=== PATIENT | male | born 1965 | race Two or more races ===

== ENCOUNTER 2020-03-21 12:36 | Outpatient (REF) | payer BC, SELFPAY | END 2020-03-21 12:37 | disposition home or self-care (01) | LOC: HO.LAB 12:36 | PROVIDERS: Visit Provider Internal Medicine | DX: Z20.828 Contact with and (suspected) exposure to other viral communicable diseases (principal) | CPT/HCPCS: C9803; U0003 ==

== ENCOUNTER 2021-08-05 07:26 | Outpatient (REF) | payer OTHER, SELFPAY ==
[2021-08-05 07:41] LABS: MANUAL DIFF FLAG NO
[2021-08-05 07:56] LABS: Basophils Percent Auto 0.4 % (0-2); Eosinophils Absolute Auto 0.2 X10*3/uL (0.0-0.4); Hemoglobin 13.3 g/dl (14.0-18.0); Imm Gran Abs Auto 0.01 X10*3/uL (0.00-0.03); Imm Gran Pct Auto 0.1 % (0.0-0.4); Lymphocytes Absolute Auto 2.7 X10*3/uL (1.2-4.9); Lymphocytes Percent Auto 39.9 % (20-40); Mean Corpuscular HGB Conc 32.4 g/dl (31.0-36.0); Mean Corpuscular Volume 89.5 fL (80.0-98.0); Mean Platelet Volume 9.8 fL (9.4-12.4); Monocytes Absolute Auto 0.7 X10*3/uL (0.1-1.2); Monocytes Percent Auto 10.5 % (2-11); Neutrophils Absolute Auto 3.1 x10*3/uL (2.0-8.3); Neutrophils Percent Auto 46.1 % (45-73); Platelet Count 302 X10*3/uL (160-400); Red Blood Count 4.58 X10*6/uL (4.60-5.80); Red Cell Distribution Width 12.8 % (11.0-16.0); White Blood Count 6.8 X10*3/uL (4.8-10.8)
[2021-08-05 08:45] LABS: Alanine Aminotransferase 36 U/L (0-40); Albumin Level 4.3 g/dL (3.5-5.0); Alkaline Phosphatase 58 U/L (39-117); Anion Gap 12 (12-20); Aspartate Amino Transferase 18 U/L (5-37); Bilirubin Total 0.5 mg/dL (0.0-1.0); Blood Urea Nitrogen 19 mg/dL (9-16); Calcium 9.7 mg/dL (8.4-10.2); Carbon Dioxide 27 mmol/L (22-29); Chloride 107 mmol/L (96-108); Cholesterol 230 mg/dL; Estimated Glomerular Filt Rate > 60; Glucose Fasting 120 mg/dL (60-99); HDL Cholesterol 29 mg/dL; LDL Cholesterol Calculated 160 mg/dl; Potassium 4.6 mmol/L (3.3-5.1); Sodium 141 mmol/L (135-145); Total Protein 7.3 g/dL (6.5-8.0); Triglycerides 208 mg/dL
[2021-08-05 08:54] LABS: Estimated Average Glucose 134 mg/dL; Hemoglobin A1c % 6.3 %
[2021-08-05 09:06] LABS: TSH reflex Free T4 1.51 uIU/mL (0.32-4.0)
== END 2021-08-05 07:27 | disposition home or self-care (01) ==
LOC: HO.LAB 07:26
PROVIDERS: PCP Internal Medicine; Visit Provider Nurse Practitioner Acute Care
DX: I10 Essential (primary) hypertension (principal); E78.5 Hyperlipidemia, unspecified; E66.9 Obesity, unspecified
CPT/HCPCS: 36415; 80053; 80061; 83036; 84443; 85025

== ENCOUNTER 2022-07-21 06:59 | Outpatient (REF) | payer OTHER, SELFPAY ==
[2022-07-21 08:49] LABS: Alanine Aminotransferase 60 U/L (0-40); Albumin Level 4.2 g/dL (3.5-5.0); Alkaline Phosphatase 66 U/L (39-117); Anion Gap 14 (12-20); Aspartate Amino Transferase 32 U/L (5-37); Bilirubin Direct < 0.2 mg/dL (0.0-0.5); Bilirubin Total 0.7 mg/dL (0.0-1.0); Blood Urea Nitrogen 16 mg/dL (9-16); Calcium 9.1 mg/dL (8.4-10.2); Carbon Dioxide 27 mmol/L (22-29); Chloride 102 mmol/L (96-108); Cholesterol 238 mg/dL; Estimated Glomerular Filt Rate > 60; Glucose Random 140 mg/dL (60-115); HDL Cholesterol 28 mg/dL; LDL Cholesterol Calculated 169 mg/dl; Potassium 4.9 mmol/L (3.3-5.1); Sodium 138 mmol/L (135-145); Triglycerides 208 mg/dL
[2022-07-21 09:09] LABS: Thyroid Stimulating Hormone 1.03 uIU/mL (0.32-4.0)
== END 2022-07-21 07:00 | disposition home or self-care (01) ==
LOC: HO.LAB 06:59
PROVIDERS: PCP Internal Medicine; Visit Provider Internal Medicine
DX: I10 Essential (primary) hypertension (principal); E78.5 Hyperlipidemia, unspecified
CPT/HCPCS: 36415; 80048; 80061; 80076; 84443

== ENCOUNTER 2023-09-12 14:26 | Outpatient (AMB) | payer OTHER, SELFPAY ==
[2023-09-12 14:28] VITALS: BP 128/62; PULSE 68; O2SAT 97; BMI 38.1
--- NOTE | 2023-09-12 14:28 | MHC.PC.OV ---
Vital Signs 09/12/23 14:28 Height 5 ft 4 in Weight 222 lb BMI 38.1 BP 128/62 Blood Pressure Location Lt brachial Position Sitting Pulse 68 Pulse Source Pulse Oximeter Pulse Oximetry (%) 97 Oxygen Delivery Method Room Air Intake Visit Reasons: Annual Exam Intake Note: Patient is here today for a physical. 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 [facility] Medical History Hyperlipidemia Hypertension Dermatitis associated with moisture Surgical History No pertinent past surgical history Social History Housing: House Alcohol intake: never Patient Tobacco Use Status: Never used Tobacco e-Cigarette/Vaping Use: Never Used Second Hand Smoke Exposure: No service: No Current occupational status: retired Cognitive needs: No Hearing needs: No Vision needs: Yes (GLasses) Questionnaire PHQ-9 Over the last 2 weeks, how often have you been bothered by any of the following problems? 1. Little interest or pleasure in doing things: not at all 2. Feeling down, depressed, or hopeless: not at all 3. Trouble falling or staying asleep, or sleeping too much: not at all 4. Feeling tired or having little energy: not at all 5. Poor appetite or overeating: not at all 6. Feeling bad about yourself - or that you are a failure or have let yourself or your family down: not at all 7. Trouble concentrating on things, such as reading the newspaper or watching television: not at all 8. Moving or speaking so slowly that other people could have noticed. Or the opposite - being so fidgety or restless that you have been moving around a lot more than usual: not at all 9. Thoughts that you would be better off or of hurting yourself in some way: not at all Total score: 0 Depression Screening Interpretation: Negative Depression Screening Done: Yes Source: Developed by Drs. Praveen Allan, Ashly Winslow, Shailesh Martinez and colleagues, with an educational yoli from [employer]. Thrive Questionnaire Date Thrive assessed: 09/12/23 I am a: Patient What is your living situation today?: I have a steady place to live Within the past 12 months, did the food you bought not last and you didn't have the money to get more?: Never true Within the past 12 months, did you worry whether your food would run out before you got money to buy more?: Never true Do you have trouble paying for medicines?: No Do you have trouble getting transportation to medical appointments?: No Do you have trouble paying your heating and electricity bill?: No Do you have trouble taking care of your child, family member or friend?: No Do you have trouble with day-to-day activities such as bathing, preparing meals, shopping, managing finances, etc.?: No Are you currently unemployed and looking for a job?: No Are you interested in more education?: No Please select the resources that you would like help with: None Currently or been in a relationship where the following occur: no concerns reported THRIVE Score: 0 AUDIT C Alcohol Use Questionnaire (AUDIT-C) 1. How often do you have a drink containing alcohol?: Never 3. How often do you have six or more drinks on one occasion?: Never Total Score: 0 ZAHIRA-7 AMB Questionnaire ZAHIRA-7 Date ZAHIRA - 7 assessed: 09/12/23 Feeling nervous, anxious, or on edge: 0 = Not at all Not being able to stop or control worryin = Not at all Worrying too much about different things: 0 = Not at all Trouble relaxin = Not at all Being so restless that it is hard to sit still: 0 = Not at all Becoming easily annoyed or irritable: 0 = Not at all Feeling afraid as if something awful might happen: 0 = Not at all Total ZAHIRA-7 score (0-4 normal; 5-9 mild; 10-14 moderate; 15-21 severe): 0 Source: Developed by Drs. Praveen Allan, Ashly Winslow, Shailesh Martinez and colleagues, with an educational yoli from [employer]. ZAHIRA-7 Assessment Billing ZAHIRA-7 Assessment Tool: ZAHIRA-7 Assessment 74029 Physical exam (Primary Care) Vital Signs: Last Vital Signs Pulse 68 09/12/23 14:28 BP 128/62 09/12/23 14:28 Pulse Ox 97 09/12/23 14:28 Oxygen Delivery Method Room Air 09/12/23 14:28 Care Plan Goal for BP management: BP is in range. Continue current medications. BMI result Body Mass Index 38.1 BMI Assessment/Plan discussion: High (one pound per week weight loss suggested.) BMI High, discussed plan: lifestyle, weight reduction and dietary Tobacco/Smoking Status: Tobacco use Status Tobacco use date assessed 09/12/23 09/12/23 14:30 Patient Tobacco Use Status Never used Tobacco 09/12/23 14:30 e-Cigarette/Vaping Use Never Used 09/12/23 14:30 PHQ-9: PHQ-9 Score PHQ-9: Total score 0 09/12/23 14:59 Depression Screening Interpretation: Negative Thrive Assessment: Date of Thrive Assessment Date Thrive assessed 09/12/23 09/12/23 14:30 Currently or been in a relationship where the following occur: no concerns reported Const General: cooperative and healthy appearing Nutritional Appearance: well nourished Orientation/consciousness: patient oriented x3 Limitations: no limitations HENMT Head: Yes normal to inspection Eyes General: appearance normal, both eyes and all related structures Neck Neck: Yes normal visual inspection Chest Chest palpation & inspection: normal palpation of entire chest wall Resp Effort & Inspection: normal respiratory effort Neuro General: patient oriented x3 Assessment and Plan Assessment & Plan (1) Hyperlipidemia: Code(s): E78.5 - Hyperlipidemia, unspecified Qualifiers: Hyperlipidemia type: pure hypercholesterolemia Qualified Code(s): E78.00 - Pure hypercholesterolemia, unspecified Plan: Blood work ordered. Will call with results. (2) Hypertension: Code(s): I10 - Essential (primary) hypertension Qualifiers: Hypertension type: primary hypertension Qualified Code(s): I10 - Essential (primary) hypertension Plan: BP in range. Continue medications at same dosage. (3) Annual physical exam: Code(s): Z00.00 - Encounter for general adult medical examination without abnormal findings Plan: Uptodate on Screening Colonoscopy. Orders: Orders Basic Metabolic Panel 09/12/23 E78. - Pure hypercholesterolemia, unspecified, I10 - Essential (primary) hypertension Lipid Panel 09/12/23 E7 - Pure hypercholesterolemia, unspecified, I10 - Essential (primary) hypertension Thyroid Stimulating Hormone 09/12/23 E7. - Pure hypercholesterolemia, unspecified, I10 - Essential (primary) hypertension Liver Panel 09/12/23 E7. - Pure hypercholesterolemia, unspecified, I10 - Essential (primary) hypertension UA and rflx microscopic 09/12/23 E78. - Pure hypercholesterolemia, unspecified, I10 - Essential (primary) hypertension Coding Level of Care Code Est Pt Prev Care 40-64y(16824) Diagnoses Pure hypercholesterolemia E78.00 Hyperlipidemia type: pure hypercholesterolemia Primary hypertension I10 Hypertension type: primary hypertension Annual physical exam Z00.00 Additional Codes ZAHIRA-7 Assessment Billing - ZAHIRA-7 Assessment Tool: ZAHIRA-7 Assessment 95990 ([id number])
== END 2023-09-12 15:39 | disposition home or self-care (01) ==
PROVIDERS: Visit Provider Internal Medicine
DX: E78.00 Pure hypercholesterolemia, unspecified (principal); I10 Essential (primary) hypertension; Z00.00 Encounter for general adult medical examination without abnormal findings
CPT/HCPCS: 99396

== ENCOUNTER 2023-11-21 08:22 | Outpatient (REF) | payer BC, SELFPAY ==
[2023-11-21 09:40] LABS: Appearance Urine Clear; Color Urine Yellow; Glucose Urine UA 250 mg/dL (Negative); Leukocyte Esterase Urine Negative (Negative); Nitrite Urine Negative (Negative); UMIC TRIGGER UA YES; Urine Blood Trace (Negative); Urine Ketones Negative (Negative); Urine Protein Negative (Neg-Trace)
[2023-11-21 09:45] LABS: Bacteria Urine None Seen (None Seen); Hyaline Casts Urine 0-2 /LPF (0-2); RBC Urine 0-2 /HPF (0-2); Squamous Epithelial Cell Urine 0-2 /HPF (0-2); WBC Urine 0-5 /HPF (0-5)
[2023-11-21 09:50] LABS: Alanine Aminotransferase 124 U/L (0-40); Albumin Level 4.2 g/dL (3.5-5.0); Alkaline Phosphatase 95 U/L (39-117); Anion Gap 12 (12-20); Aspartate Amino Transferase 58 U/L (5-37); Bilirubin Direct 0.1 mg/dL (0.0-0.5); Bilirubin Total 0.5 mg/dL (0.0-1.0); Blood Urea Nitrogen 13 mg/dL (9-16); Calcium 9.1 mg/dL (8.4-10.2); Carbon Dioxide 28 mmol/L (22-29); Chloride 103 mmol/L (96-108); Cholesterol 230 mg/dL (<200); Estimated Glomerular Filt Rate > 60; Glucose Random 156 mg/dL (60-115); HDL Cholesterol 27 mg/dL (>40); LDL Cholesterol Calculated 162 mg/dL (<100); Sodium 138 mmol/L (135-145); Total Protein 7.4 g/dL (6.5-8.0); Triglycerides 209 mg/dL (<150)
[2023-11-21 10:05] LABS: Thyroid Stimulating Hormone 1.63 uIU/mL (0.32-4.0)
== END 2023-11-21 08:23 | disposition home or self-care (01) ==
LOC: HO.LAB 08:22
PROVIDERS: PCP Internal Medicine; Visit Provider Internal Medicine
DX: E78.00 Pure hypercholesterolemia, unspecified (principal); I10 Essential (primary) hypertension
CPT/HCPCS: 36415; 80048; 80061; 80076; 81001; 84443

== ENCOUNTER 2023-12-05 14:46 | Outpatient (AMB) | payer BC, SELFPAY ==
--- NOTE | 2023-12-05 14:50 | A.OFFPC_ITS ---
Vital Signs 12/05/23 14:51 Height 5 ft 4 in Weight 223 lb BMI 38.3 BP 128/62 Blood Pressure Location Lt brachial Position Sitting Pulse 67 Pulse Source Pulse Oximeter Pulse Oximetry (%) 96 Oxygen Delivery Method Room Air Intake Visit Reasons: Abnormal Lab result/ Need A1C Intake Note: Patient is here to follow up on Abnormal Lab results. Aircraft Engine Dismantler Required: No Finisher Operator: Not Required per policy Accompanied by: Self / Same As Patient Allergies No Known Allergies Allergy (Verified 12/05/23 14:51) Tobacco use date assessed: 12/05/23 Dental Screening Dental Screen Date: 09/12/23 HPI Abnormal Lab result/ Need A1C HPI Details 58-year-old male presents to the office to discuss his blood work. Routine blood work done during his last office visit showed elevated blood sugars. Diabetes was confirmed after doing an A1c which was elevated. Patient gives no symptoms of fatigue, increased thirst or increased urination. [facility] Medical History (Updated 12/06/23 @ 09:03 by Avel Vee MD) Diabetes mellitus Hyperlipidemia Hypertension Dermatitis associated with moisture Surgical History No pertinent past surgical history Social History Housing: House Alcohol intake: never Patient Tobacco Use Status: Never used Tobacco e-Cigarette/Vaping Use: Never Used Second Hand Smoke Exposure: No service: No Current occupational status: retired Cognitive needs: No Hearing needs: No Vision needs: Yes (GLasses) Questionnaire Thrive Questionnaire Date Thrive assessed: 09/12/23 ZAHIRA-7 AMB Questionnaire ZAHIRA-7 Date ZAHIRA - 7 assessed: 09/12/23 Source: Developed by Drs. Praveen Allan, Ashly Winslow, Shailesh Martinez and colleagues, with an educational yoli from [employer]. Physical exam (Primary Care) Vital Signs: Last Vital Signs Pulse 67 12/05/23 14:51 BP 128/62 12/05/23 14:51 Pulse Ox 96 12/05/23 14:51 Oxygen Delivery Method Room Air 12/05/23 14:51 BMI result Body Mass Index 38.3 BMI Assessment/Plan discussion: High (Patient was counseled to lose weight ag gressively. It will help him with his diabetes.) BMI High, discussed plan: lifestyle, weight reduction and dietary Tobacco/Smoking Status: Tobacco use Status Tobacco use date assessed 12/05/23 12/05/23 15:02 Patient Tobacco Use Status Never used Tobacco 12/05/23 15:02 e-Cigarette/Vaping Use Never Used 12/05/23 15:02 Thrive Assessment: Date of Thrive Assessment Date Thrive assessed 09/12/23 12/05/23 15:02 Const General: cooperative and healthy appearing Nutritional Appearance: well nourished Orientation/consciousness: patient oriented x3 Limitations: no limitations HENMT Head: Yes normal to inspection Eyes General: appearance normal, both eyes and all related structures Neck Neck: Yes normal visual inspection Chest Chest palpation & inspection: normal palpation of entire chest wall Resp Effort & Inspection: normal respiratory effort Neuro General: patient oriented x3 Results AMB Hemoglobin A1c AMB Hemoglobin A1c 8.5 % Last Edit by SHILPA Everett on 12/05/23 15:05 Results Reviewed Results Reviewed: Laboratory Last Values Hgb A1c (Clinic) 8.5 % (4.0-6.0) H 12/05/23 14:49 Assessment and Plan Assessment & Plan (1) Diabetes mellitus: Code(s): E11.9 - Type 2 diabetes mellitus without complications Plan: This is a new diagnosis. 20 minutes spent on discussing the pathophysiology of diabetes, the possible complications and the importance of tight sugar control. Patient understands the importance of diet and exercise in controlling the disease. Metformin has been started. Initially, I instructed him to take 1 tablets a day for a week and then increase it to twice a day. Glucometer has been ordered. If patient is unable to use the machine, he was instructed to return here for us to instruct him on how to use the device. Orders: Orders AMB Hemoglobin A1c 12/05/23 Z13.9 - Encounter for screening, unspecified Medications: New metformin 500 mg PO BID 180 tabs 1RF Refilled triamcinolone acetonide 0.1% 2 appl topical BID PRN 30 grams 1RF rash L30.8 - Other specified dermatitis Coding Level of Care Code Est Pt Level 4 (81654) Complex EM visit Add On G2211 Diagnoses Diabetes mellitus E11.9
[2023-12-05 14:51] VITALS: BP 128/62; PULSE 67; O2SAT 96; BMI 38.3
== END 2023-12-05 15:28 | disposition home or self-care (01) ==
PROVIDERS: PCP Internal Medicine; Visit Provider Internal Medicine
DX: E11.9 Type 2 diabetes mellitus without complications (principal)
CPT/HCPCS: 83036; 99214

== ENCOUNTER 2024-01-06 14:56 | Outpatient (AMB) | payer BC, SELFPAY ==
[2024-01-06 15:16] VITALS: BP 128/80; PULSE 63; O2SAT 96; BMI 37.7
--- NOTE | 2024-01-06 15:16 | A.OFFPC_ITS ---
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 Automatic Required: No Accompanied by: Self / Same As Patient Allergies No Known Allergies Allergy (Verified 01/07/24 11:25) Medication List - Last Reconciled 01/07/24 by Avel Vee MD blood-glucose meter (FreeStyle [place]beron Lite kit) Test twice a day [Freestyle freedom lite lancets As directed] [freestyle freedom lite test strips As directed] lisinopril 10 mg PO DAILY metformin 500 mg PO BID triamcinolone acetonide 0.1% 2 appl topical BID PRN Tobacco use date assessed: 01/06/24 Dental Screening Dental Screen Date: 01/06/24 Did you have a dental visit in the last 12 months?: Yes Did you have a dental problem in the last 6 months where you did not have access to dental care?: No Was dental information given to patient?: Patient has dentist HPI 1m f/u HPI Details 58-year-old male presents to the office to discuss his chronic medical conditions. Patient was diagnosed with type 2 diabetes in the last office visit. He was started on metformin twice a day and given a prescription for glucometer. Patient has been checking his blood sugars regularly. Fasting blood sugars continue to be greater than 200. He is feeling better symptom cantrell. Has started exercising and following a healthy diet. [facility] Medical History (Updated 12/06/23 @ 09:03 by Avel Vee MD) Diabetes mellitus Hyperlipidemia Hypertension Dermatitis associated with moisture Surgical History No pertinent past surgical history Social History Housing: House Alcohol intake: never Patient Tobacco Use Status: Never used Tobacco e-Cigarette/Vaping Use: Never Used Second Hand Smoke Exposure: No service: No Current occupational status: retired Cognitive needs: No Hearing needs: No Vision needs: Yes (GLasses) Questionnaire PHQ-9 Over the last 2 weeks, how often have you been bothered by any of the following problems? 1. Little interest or pleasure in doing things: not at all 2. Feeling down, depressed, or hopeless: not at all 3. Trouble falling or staying asleep, or sleeping too much: not at all 4. Feeling tired or having little energy: not at all 5. Poor appetite or overeating: not at all 6. Feeling bad about yourself - or that you are a failure or have let yourself or your family down: not at all 7. Trouble concentrating on things, such as reading the newspaper or watching television: not at all 8. Moving or speaking so slowly that other people could have noticed. Or the opposite - being so fidgety or restless that you have been moving around a lot more than usual: not at all 9. Thoughts that you would be better off or of hurting yourself in some way: not at all Total score: 0 Depression Screening Interpretation: Negative Depression Screening Done: Yes Source: Developed by Drs. Praveen Allan, Ashly Winslow, Shailesh Martinez and colleagues, with an educational yoli from [employer]. Thrive Questionnaire Date Thrive assessed: 01/06/24 I am a: Patient What is your living situation today?: I have a steady place to live Within the past 12 months, did the food you bought not last and you didn't have the money to get more?: Never true Within the past 12 months, did you worry whether your food would run out before you got money to buy more?: Never true Do you have trouble paying for medicines?: No Do you have trouble getting transportation to medical appointments?: No Do you have trouble paying your heating and electricity bill?: No Do you have trouble taking care of your child, family member or friend?: No Do you have trouble with day-to-day activities such as bathing, preparing meals, shopping, managing finances, etc.?: No Are you currently unemployed and looking for a job?: No Are you interested in more education?: No Please select the resources that you would like help with: None Currently or been in a relationship where the following occur: No concerns reported THRIVE Score: 0 AUDIT C Alcohol Use Questionnaire (AUDIT-C) 1. How often do you have a drink containing alcohol?: Never 3. How often do you have six or more drinks on one occasion?: Never Total Score: 0 ZAHIRA-7 AMB Questionnaire ZAHIRA-7 Date ZAHIRA - 7 assessed: 01/06/24 Feeling nervous, anxious, or on edge: 0 = Not at all Not being able to stop or control worryin = Not at all Worrying too much about different things: 0 = Not at all Trouble relaxin = Not at all Being so restless that it is hard to sit still: 0 = Not at all Becoming easily annoyed or irritable: 0 = Not at all Feeling afraid as if something awful might happen: 0 = Not at all Total ZAHIRA-7 score (0-4 normal; 5-9 mild; 10-14 moderate; 15-21 severe): 0 Source: Developed by Drs. Praveen Allan, Ashly Winslow, Shailesh Martinez and colleagues, with an educational yoli from [employer]. Physical exam (Primary Care) Vital Signs: Last Vital Signs Pulse 63 01/06/24 15:16 BP 128/80 01/06/24 15:16 Pulse Ox 96 01/06/24 15:16 Oxygen Delivery Method Room Air 01/06/24 15:16 BMI result Body Mass Index 37.7 Tobacco/Smoking Status: Tobacco use Status Tobacco use date assessed 01/06/24 01/06/24 15:18 Patient Tobacco Use Status Never used Tobacco 01/06/24 15:18 e-Cigarette/Vaping Use Never Used 01/06/24 15:18 PHQ-9: PHQ-9 Score PHQ-9: Total score 0 01/06/24 15:30 Depression Screening Interpretation: Negative Thrive Assessment: Date of Thrive Assessment Date Thrive assessed 01/06/24 01/06/24 15:18 Currently or been in a relationship where the following occur: No concerns reported Const General: cooperative and healthy appearing Nutritional Appearance: well nourished Orientation/consciousness: patient oriented x3 Limitations: no limitations HENMT Head: Yes normal to inspection Eyes General: appearance normal, both eyes and all related structures Neck Neck: Yes normal visual inspection Chest Chest palpation & inspection: normal palpation of entire chest wall Resp Effort & Inspection: normal respiratory effort Neuro General: patient oriented x3 Assessment and Plan Assessment & Plan (1) Diabetes mellitus: Code(s): E11.9 - Type 2 diabetes mellitus without complications Plan: Patient was advised to increase the metformin to 2 tablets twice a day. Continue to check the sugars. Follow-up in 3 months. Coding Level of Care Code Est Pt Level 3 (34105) Complex EM visit Add On G2211 Diagnoses Diabetes mellitus E11.9
== END 2024-01-06 16:03 | disposition home or self-care (01) ==
PROVIDERS: PCP Internal Medicine; Visit Provider Internal Medicine
DX: E11.9 Type 2 diabetes mellitus without complications (principal)
CPT/HCPCS: 99213

== ENCOUNTER 2024-06-11 08:49 | Observation (INO) | payer BC, SELFPAY ==
[2024-06-11] VITALS (10 sets, daily range): BP systolic 125–177; BP diastolic 51–77; PULSE 58–72; RESP 17–20; TEMP 36.1–36.7; O2SAT 95–98; BMI 37.9
--- NOTE | ~2024-06-11 | CT_ITS ---
EXAMINATION: CT ANGIOGRAM NECK CLINICAL INFORMATION: Dizziness. COMPARISON: No prior CT angiograms head neck. Correlated to CT brain dated September 06, 2010. TECHNIQUE: CT brain: Contiguous axial images from the skull base to the vertex using 3 mm collimation without the IV contrast demonstration. Sagittal and coronal reformatted images acquired. CT angiogram of head and neck: Contents axial images from the vertex to the aortic arch using 3 mm collimation following the IV contrast administration. Total of 70 cc Omnipaque 350 strength. Without reported immediate complications. Sagittal and coronal reformatted images acquired. Maximum intensity projections. The degree of stenosis determined by NASCET criteria. This CT examination was performed using dose optimization techniques as appropriate, variously including the following: *Automated exposure control *Adjustment of mA and/or kV according to patient size (this includes techniques or standardized protocols for targeted exams where dose is matched to indication/reason for exam; i.e. extremities or head) *Use of iterative reconstruction technique DLP: 2419 mGy centimeter. FINDINGS: CT brain: No acute intracranial hemorrhage, mass effect, midline shift, hydrocephalus or herniation. Brar-white matter differentiation is normal. Posterior cranial fossa contents demonstrated no acute intracranial hemorrhage or mass effect. Following the IV contrast there is no abnormal enhancement in the intra-axial or the extra-axial compartment of the cranium. Sellar/suprasellar region demonstrated no gross masses or enhancing lesion. Craniocervical junction is intact and normal. Probable old traumatic deformities in the nasal bones. Bony calvarium is intact. Skull base is intact. Tympanic cavities and mastoid cells are aerated. No air-fluid levels in the included paranasal sinuses. CT angiogram neck: The thoracic aortic arch demonstrates normal caliber and enhancement pattern without intimal flap. Mild calcified plaques in the wall. Right CCA: Normal patency. No focal stenosis. No intimal flap. Right ICA: Normal patency. No focal stenosis. No intimal flap. Left CCA: Normal patency. No focal stenosis. No intimal flap. Tortuosity in the distal segment. Left ICA: Calcified plaque. Normal patency. No focal stenosis. No intimal flap. V1/V2 segments: Normal patency. No focal stenosis. No intimal flap. Left vertebral artery is dominant. Both vertebral arteries originating from the subclavian arteries. CT angiogram head: Anterior cerebral circulation: ICAs: Calcified plaques in the cavernous and supraclinoid segments. No focal stenosis. No abrupt cut off. MCA's: Normal patency. No focal stenosis. No abrupt cut off. Bifurcation/trifurcation demonstrated no vascular irregularity. ACAs: Normal patency. No focal stenosis. No abrupt cut off. Anterior communicating artery: Normal patency. Ophthalmic arteries are patent without vascular irregularity. Posterior communicating arteries: Normal patency. Robust on the right side. Posterior cerebral circulation: V3/V4 segments: Normal patency. No intimal flap. No abrupt cut off. Right vertebral artery and seen in the right posterior inferior cerebellar artery. Left posterior inferior cerebellar artery is patent. Basilar artery demonstrates normal patency without focal stenosis or intimal flap. Small caliber of the basilar artery. Superior cerebellar arteries are patent. Anterior inferior cerebellar arteries are patent. ocean export coordinator: Normal patency without abrupt cut off or focal stenosis. Small caliber of the right P1 segment. Main cerebral venous sinuses are patent with a dominant right transverse sinus. CT/CT angio head neck IMPRESSION: Calcified plaque left ICA. No high degree stenosis or dissection. No gross occlusion or embolus in the main cerebral arteries. No gross aneurysm, cerebral arteries. Atherosclerosis disease, cavernous and supraclinoid segments both ICA. Electronically signed by: Ryan Paredes MD 06/11/2024 01:27 PM EST
--- NOTE | ~2024-06-11 | MR_ITS ---
CLINICAL HISTORY: Dizziness. Imbalance MR Brain without gadolinium Comparison: 06/11/2024 Findings: No restricted diffusion. No intracranial mass or hemorrhage. No midline shift. No hydrocephalus. Vascular flow voids are intact. The orbits are normal. The sinuses and mastoid air cells are clear. No focal bone lesion. IMPRESSION: No acute findings. This document has been electronically signed by: Steve Molina MD on 06/11/2024 18:06:09
--- NOTE | 2024-06-11 08:56 | ECG_ITS ---
Test Reason : dizziness Blood Pressure : */* mmHG Vent. Rate : 62 BPM Atrial Rate : 62 BPM P-R Int : 154 ms QRS Dur : 94 ms QT Int : 372 ms P-R-T Axes : 54 37 31 degrees QTcB Int : 377 ms Normal sinus rhythm Normal ECG When compared with ECG of 06-Sep-2010 11:41, No significant changes seen Referred By: Generic ED Physician Electronically Signed By: CAROLYNN DWYER
[2024-06-11 09:08] LABS: MANUAL DIFF FLAG NO
[2024-06-11 09:10] LABS: Basophils Percent Auto 0.6 % (0-2); Eosinophils Absolute Auto 0.2 X10*3/uL (0.0-0.4); Eosinophils Percent Auto 2.6 % (0-4); Hematocrit 42.5 % (42.0-52.0); Hemoglobin 14.6 g/dl (14.0-18.0); Imm Gran Abs Auto 0.01 X10*3/uL (0.00-0.03); Imm Gran Pct Auto 0.2 % (0.0-0.4); Lymphocytes Absolute Auto 2.8 X10*3/uL (1.2-4.9); Lymphocytes Percent Auto 42.7 % (20-40); Mean Corpuscular HGB Conc 34.4 g/dl (31.0-36.0); Mean Corpuscular Hemoglobin 30.4 pg (27.0-33.0); Mean Corpuscular Volume 88.4 fL (80.0-98.0); Mean Platelet Volume 10.1 fL (9.4-12.4); Monocytes Absolute Auto 0.8 X10*3/uL (0.1-1.2); Monocytes Percent Auto 11.6 % (2-11); Neutrophils Absolute Auto 2.8 x10*3/uL (2.0-8.3); Neutrophils Percent Auto 42.3 % (45-73); Platelet Count 296 X10*3/uL (160-400); Red Blood Count 4.81 X10*6/uL (4.60-5.80); Red Cell Distribution Width 12.3 % (11.0-16.0); White Blood Count 6.6 X10*3/uL (4.8-10.8)
[2024-06-11 09:21] LABS: Anion Gap 15 (12-20); Blood Urea Nitrogen 14 mg/dL (9-16); Calcium 9.3 mg/dL (8.4-10.2); Carbon Dioxide 25 mmol/L (22-29); Chloride 106 mmol/L (96-108); Creatinine Clr Calc Pharmacy 116.5; Estimated Glomerular Filt Rate > 60; Glucose Random 113 mg/dL (60-115); Potassium 4.7 mmol/L (3.3-5.1); Sodium 141 mmol/L (135-145)
[2024-06-11 09:31] LABS: Troponin-I High Sensitivity < 2.7 ng/L (<3.5-35.0)
--- NOTE | 2024-06-11 11:03 | ED_ITS ---
HPI - Dizziness General Chief Complaint: Dizziness Stated Complaint: dizzy unstable Time Seen by Provider: 06/11/24 11:01 Source: patient and RN notes reviewed Mode of arrival: ambulatory Limitations: no limitations History of Present Illness ED Provider: Christi Nesbitt PA-C HPI Narrative: This is a 58-year-old male, with a history of diabetes, hyperlipidemia, and hypertension, who presents emergency department for concerns for dizziness. Patient states that over this last week he has had intermittent dizziness, worse in the morning. He states that he also has been experiencing right-sided neck pain and right shoulder pain for the last 2 weeks. 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 He states that this unsteadiness worsens when he is standing, and walking around. He states that he has a sense of needing to sit down as he feels off centered. No recent illness. Denies any vision changes, chest pain, shortness of breath, abdominal pain, nausea, vomiting or diarrhea. No recent travel. No other complaints or concerns at this time. Severity: mild Description: lightheadedness, off-balance and difficulty walking History of similar symptoms: Yes Exacerbating factors: nothing Relieving factors: nothing Associated symptoms: denies other symptoms Related Data Home Medications ?Medication ?Instructions ?Recorded ?Confirmed ascorbic acid (vitamin C) 250 mg 250 mg PO DAILY 06/11/24 06/11/24 tablet (Vitamin C) multivitamin 1 tab PO DAILY 06/11/24 06/11/24 vitamin B complex 1 tab PO DAILY 06/11/24 06/11/24 vitamin E 268 mg (400 unit) capsule 268 mg PO DAILY 06/11/24 06/11/24 Previous Rx's ?Medication ?Instructions ?Recorded Freestyle freedom lite lancets #1 ea 12/09/23 blood-glucose meter (FreeStyle #1 ea 12/09/23 [place] Lite kit) freestyle freedom lite test strips #1 ea 12/09/23 lisinopril 10 mg tablet 10 mg PO DAILY #90 tabs 02/21/24 metformin 500 mg tablet 500 mg PO BID #180 tabs 06/05/24 Allergies Allergy/AdvReac Type Severity Reaction Status Date / Time No Known Allergies Allergy Verified 06/11/24 08:55 Review of Systems 2 Review of Systems: Yes all other systems are reviewed and are negative Constitutional: Constitutional: Reports as per [facility] Past Medical History Medical History (Updated 06/11/24 @ 14:05 by CATRACHO Huizar) Diabetes mellitus Hyperlipidemia Hypertension Dermatitis associated with moisture Surgical History No pertinent past surgical history Social History Social History Housing: House Alcohol intake: never Patient Tobacco Use Status: Never used Tobacco Smoked in Last 30 Days: No e-Cigarette/Vaping Use: Never Used Second Hand Smoke Exposure: No Use of substances other than those prescribed or required for medical reasons: No Advance Directives: No Advance Directives Information Provided: Yes service: No Current occupational status: retired Cognitive needs: No Hearing needs: No Vision needs: Yes (GLasses) Physical Exam 2 Vital Signs: Vital Signs: Last Vital Signs Temp 97.7 F 06/11/24 15:14 Pulse 58 06/11/24 15:14 Resp 17 06/11/24 15:14 BP 148/51 H 06/11/24 15:14 Pulse Ox 98 06/11/24 15:14 O2 Del Method Room Air 06/11/24 15:14 BMI result Body Mass Index 37.9 Const: General: cooperative, comfortable and no acute distress O rientation/consciousness: patient oriented x3 Limitations: no limitations HEENT: Head: Yes normal to inspection, Yes normocephalic and Yes atraumatic Ears: hearing grossly normal bilaterally General nose exam: Normal external nose present Face and sinus: Yes normal facial exam Mouth: Normal oral and palatal mucosa present, oropharynx normal and moist mucous membranes Throat: Yes posterior oropharynx normal Eyes: General: appearance normal, both eyes and all related structures E yelids: Yes eyelids normal Conjunctivae: conjunctivae normal Sclerae: s clerae normal Pupils: Equal, round and reactive pupils present EOM: EOMs intact bilaterally Neck: Neck: Yes normal visual inspection, Yes full ROM and Yes no lymphadenopathy Lymphatic: no lymphadenopathy noted Chest: Chest palpation & inspection: normal inspection of the chest Resp: Effort & Inspection: normal respiratory effort and able to speak in complete sentences Auscultation: clear to auscultation bilaterally, no crackles, no rales, no rhonchi and no wheezes Cardio: Rate: regular rate Rhythm: regular rhythm Heart sounds: S1 normal heart sound present and S2 normal heart sound present GI: Inspection: Yes normal to inspection Skin: General skin exam: no rashes or lesions noted Trauma: no lacerations or abrasions Wounds: no wounds Neuro: General: patient oriented x3 and moves all extremities Cranial nerves: Yes Equal, round and reactive pupils present Cognition (Neuro): n ormal cognition Gait exam (Neuro): Normal gait present Motor exam (neuro): 5/5 motor strength present throughout and Pronator motor function not present Coordination: [id number]-we-vgnf test normal, hdow-du-bfvq test normal and Romberg test positive Extrem: General: Yes normal to inspection Right upper extremity: normal to inspection Left upper extremity: normal to inspection Right lower extremity: normal to inspection Left lower extremity: normal to inspection NIH Stroke Scale Internal: Initial- Upon Arrival Time: 11:21 Level of Consciousness: Alert Level of Consciousness Questions: Answers both questions correctly Level of Consciousness Commands: Performs both tasks correctly Best Gaze: Normal Visual: No visual loss Facial Palsy: Normal Motor Arm (Right): No drift Motor Arm (Left): No drift Motor Leg (Right): No drift Motor Leg (Left): No drift Limb Ataxia: Absent Sensory: Normal Best Language: No aphasia Dysarthia: Normal Extinction and Inattention: No abnormality Score: 0 Course Reevaluation(s) Reevaluation #1: Patient was not orthostatic, 2nd troponin still pending. Will order CT, CTA to r/o any intracranial process. Pt likely needing admission secondary to dizziness of unknown origin. Time: 12:10 Reevaluation #2: CTA returned showing calcified plaque left ICA, no high-grade stenosis or dissection.cavernous and supraclinoid segments both ICA. I reassess patient, had him stand up, he still reports that he was feeling unsteady, does not feel his normal self. Given this finding, patient needing hospital admission for further management, and MRI to r/o cerebellar stroke. He is agreeable for admission. Discussed with hospitalist Time: 14:05 Medications Administered Discontinued Medications Generic Name Dose Route Start Last Admin Trade Name Freq PRN Reason Stop Dose Admin Sodium Chloride 1,000 mls @ 999 mls/hr 06/11/24 12:54 06/11/24 14:01 Ns IV 06/11/24 13:54 999 mls/hr .Q1H1M ONE Administration Iohexol 100 ml 06/11/24 12:41 06/11/24 12:41 Iohexol 350 Mg/Ml 100 Ml Infus..Btl IV 06/11/24 12:42 70 ml ONCE ONE Administration Medical Decision Making Medical Decision Making [facility] Narrative: This is a 58-year-old male, with a history of diabetes, hypertension, hyperlipidemia, who presents emergency department with concerns for dizziness. On arrival, vital signs within normal limits he is speaking in full sentences under no acute distress. Patient has had intermittent dizziness for the last week worsening this morning. He describes this as feeling unsteady. Denies any vision changes. +Romberg on examination, no other focal findings. When asked to stand, patient does report that he is feeling off and asks to sit down. Plan: Labs, EKG, orthostatics Differential Diagnosis Differential Diagnoses: The differential diagnosis associated with the presentation includes Orthostatic hypotension, vertigo, BPPV, electrolyte derangement, ACS, CVA Admission/Observation Consideration of admission/observation: Escalation of care including admission/observation considered Given dizziness, negative orthostatics, patient likely needing MR for further management. Lab Data [facility] Lab Attestation statement: I reviewed the patient's lab results. No leukocytosis, stable H&H, chemistry with no significant electrolyte derangement. Negative troponin x2, viral swabs negative. 06/11/24 09:04 06/11/24 09:04 Labs: Lab Results 06/11/24 06/11/24 06/11/24 Range/Units 09:04 11:45 12:19 WBC 6.6 (4.8-10.8) X10*3/uL RBC 4.81 (4.60-5.80) X10*6/uL Hgb 14.6 (14.0-18.0) g/dl Hct 42.5 (42.0-52.0) % MCV 88.4 (80.0-98.0) fL MCH 30.4 (27.0-33.0) pg MCHC 34.4 (31.0-36.0) g/dl RDW 12.3 (11.0-16.0) % Plt Count 296 (160-400) X10*3/uL MPV 10.1 (9.4-12.4) fL Immature Gran % (Auto) 0.2 (0.0-0.4) % Neut % (Auto) 42.3 L (45-73) % Lymph % (Auto) 42.7 H (20-40) % [place] % (Auto) 11.6 H (2-11) % Eos % (Auto) 2.6 (0-4) % Baso % (Auto) 0.6 (0-2) % Lymph # (Auto) 2.8 (1.2-4.9) X10*3/uL [place] # (Auto) 0.8 (0.1-1.2) X10*3/uL Eos # (Auto) 0.2 (0.0-0.4) X10*3/uL Baso # (Auto) 0.0 (0.0-0.2) X10*3/uL Abs Immat Gran (auto) 0.01 (0.00-0.03) X10*3/uL Absolute Neuts (auto) 2.8 (2.0-8.3) x10*3/uL Absolute Nucleated RBC 0.000 (0.0-0.012) X10*3/uL Nucleated RBC % (auto) 0.0 (0.0-0.2) /100WBC Sodium 141 (135-145) mmol/L Potassium 4.7 (3.3-5.1) mmol/L Chloride 106 (96-108) mmol/L Carbon Dioxide 25 (22-29) mmol/L Anion Gap 15 (12-20) BUN 14 (9-16) mg/dL Creatinine 0.73 (0.5-1.4) mg/dL Estim Creat Clear Calc 116.5 Estimated GFR > 60 Random Glucose 113 (60-115) mg/dL Calcium 9.3 (8.4-10.2) mg/dL Troponin I High Sens < 2.7 < 2.7 (<3.5-35.0) ng/L Influenza Type A (PCR) NEGATIVE (Negative) Influenza Type B (PCR) NEGATIVE (Negative) RSV RNA Qual (PCR) NEGATIVE (Negative) SARS-CoV-2 RNA (RT-PCR) NEGATIVE (Negative) Independent Interpretation I performed an independent interpretation of an: EKG Interpretation: Normal sinus rhythm at a ventricular rate of 62 beats per minute, W[place] interval 54 QT QTC 372/377, no ST elevation or depression. Radiology Impression Discussion of test interpretation with radiology: I have reviewed the radiologist's reading. Radiologist Impression: FINDINGS: CT brain: No acute intracranial hemorrhage, mass effect, midline shift, hydrocephalus or herniation. Brar-white matter differentiation is normal. Posterior cranial fossa contents demonstrated no acute intracranial hemorrhage or mass effect. Following the IV contrast there is no abnormal enhancement in the intra-axial or the extra-axial compartment of the cranium. Sellar/suprasellar region demonstrated no gross masses or enhancing lesion. Craniocervical junction is intact and normal. Probable old traumatic deformities in the nasal bones. Bony calvarium is intact. Skull base is intact. Tympanic cavities and mastoid cells are aerated. No air-fluid levels in the included paranasal sinuses. CT angiogram neck: The thoracic aortic arch demonstrates normal caliber and enhancement pattern without intimal flap. Mild calcified plaques in the wall. Right CCA: Normal patency. No focal stenosis. No intimal flap. Right ICA: Normal patency. No focal stenosis. No intimal flap. Left CCA: Normal patency. No focal stenosis. No intimal flap. Tortuosity in the distal segment. Left ICA: Calcified plaque. Normal patency. No focal stenosis. No intimal flap. V1/V2 segments: Normal patency. No focal stenosis. No intimal flap. Left vertebral artery is dominant. Both vertebral arteries originating from the subclavian arteries. CT angiogram head: Anterior cerebral circulation: ICAs: Calcified plaques in the cavernous and supraclinoid segments. No focal stenosis. No abrupt cut off. MCA's: Normal patency. No focal stenosis. No abrupt cut off. Bifurcation/trifurcation demonstrated no vascular irregularity. ACAs: Normal patency. No focal stenosis. No abrupt cut off. Anterior communicating artery: Normal patency. Ophthalmic arteries are patent without vascular irregularity. Posterior communicating arteries: Normal patency. Robust on the right side. Posterior cerebral circulation: V3/V4 segments: Normal patency. No intimal flap. No abrupt cut off. Right vertebral artery and seen in the right posterior inferior cerebellar artery. Left posterior inferior cerebellar artery is patent. Basilar artery demonstrates normal patency without focal stenosis or intimal flap. Small caliber of the basilar artery. Superior cerebellar arteries are patent. Anterior inferior cerebellar arteries are patent. prosthetics technician: Normal patency without abrupt cut off or focal stenosis. Small caliber of the right P1 segment. Main cerebral venous sinuses are patent with a dominant right transverse sinus. CT/CT angio head neck IMPRESSION: Calcified plaque left ICA. No high degree stenosis or dissection. No gross occlusion or embolus in the main cerebral arteries. No gross aneurysm, cerebral arteries. Atherosclerosis disease, cavernous and supraclinoid segments both ICA. Electronically signed by: Ryan Paredes MD 06/11/2024 01:[address] [facility] Dictated By: Ryan Rogel MD Chronic Conditions Patient?s care impacted by: Diabetes and Hypertension Discharge Plan Discharge Clinical Impression: Dizziness Patient Disposition: Admitted As Inpatient Print Language: Wolof
[2024-06-11 12:28] LABS: Troponin-I High Sensitivity < 2.7 ng/L (<3.5-35.0)
[2024-06-11] MEDS: iohexoL 350 MG/ML 100 ML INFUS..BTL IV (12:41)
[2024-06-11 13:19] LABS: Influenza A PCR NEGATIVE (Negative); Influenza B PCR NEGATIVE (Negative); Resp Syncy Virus RNA Qual PCR NEGATIVE (Negative); SARS COV2 PCR INHOUSE NEGATIVE (Negative)
[2024-06-11] MEDS: 0.9 % Sodium Chloride 1,000 ML 999 ML IV (14:01)
--- NOTE | 2024-06-11 14:55 | PHA.MEDREC ---
Addendum entered by Anamaria Katz RPh 06/11/24 15:33: Reviewed by [facility] Original Note: Pharmacy Consult ? Medication Reconciliation Pharmacy has completed the medication reconciliation. Spoke with patient and he confirmed his medications. He confirmed he took his medications this morning.
--- OUTSIDE RECORDS SUMMARY | 2024-06-11 15:01 | XMS_ITS | Clinical Summary ---
Author Organization [facility] Address [address] [place] [address] Care Team Providers Care Consumer Science Teacher Name Role Phone Unavailable Primary Care Provider Unavailabl e Source Comments PLEASE NOTE, if this patient is a minor, it may be UNLAWFUL to discuss sensitive information that is contained in these records (such as FAMILY PLANNING, MENTAL HEALTH or SUBSTANCE ABUSE) with the minor patient's parent or other person without the patient's specific authorization.[facility] Immunizations Name Administration Dates Next Due Moderna COVID-19 Vaccine, re d cap blue label, 12+ Primary Series 08/23/2020,07/26/2020 Social History Tobacco Use Types Packs/Day Years Used Date Smoking Tobacco: Never Assessed Social Connections Answer Date Recorded Connectedness 0 01/23/2024 Financial Resource Strain Answer Date R ecorded Financial Resource Strain 0 2023 Stress Answer Date Recorded Stress 0 09/15/2023 Physical Activity Answer Date Recorded Physical Activity 0 09/15/2023 Food Insecurity Answer Date Recorded Food 0 02/06/2024 Transportation Needs Answer Date Record ed Transportation 0 09/15/2023 Housing Stability Answer Date Recorded Housing 0 09/15/2023 Safety and Environment Answer Date Dm rded Safety 0 09/15/2023 Utilities Answer Date Recorded Utilities 0 09/15/2023 Employment Answer Date Recorded Stress 0 01/23/2024 Sex and Gender Information Value Date Recorded Sex Assigned at Not on file Legal Sex Male 5:45 AM PST Gender Identity Not on file Sexual Orientation Not on file Plan of Treatment Health Maintenance Due Date Last Done Comments Diabetes Screening 1964 Hepatitis C Screening 1964 Lipid Screening 1964 Tobacco Screening 1964 HIV Screening 09/28/1979 Annual Preventive Care Visit 1982 Hypertension Screening (#1) 1982 Imm-DTaP/Tdap/Td (1 - Tdap) 09/28/1983 Imm-Hepatitis B (1 of 3 - 19 + 3-dose series) 09/28/1983 CT Colonography 2009 Colonoscopy 2009 Colorectal Cancer Screening 2009 FIT/gFOBT 2009 Fecal DNA 2009 Flexible Sigmoidoscopy 2009 Imm-Zoster, Recombinant (1 of 2) 2014 Alcohol and Drug Screen 05/13/2023 Depression Annual Screen 05/13/2023 [id number] ( season) 2024 021, 07/26/2020 Imm-Influenza (#1) 2024 04/05/2020, 03/29/2019 Insurance [facility] Member Subscriber Plan / Payer (Ef fective 2020-Present) Name:Monteiro, Jose Relation to Subscriber:Self Name:MonteiroRamesh fields Payer ID:[id number] Type:Indemnity Address: [id number] [place] [address]
--- NOTE | 2024-06-11 15:45 | PM.IMHP ---
History of Present Illness Date of Service: 06/11/24 Chief Complaint: dizziness The patient is a 58-year-old male with a past medical history of diabetes, hypertension, fatty liver who presents to the emergency room with worsening dizziness which began on the morning of admission. The patient reports, that over the last several weeks, he has had several episodes of similar symptoms, although not as severe. He says he typically sits down and rests with the symptoms subsiding. During these episodes there are no other neurological deficits reported by him. No tinnitus, no recent URI symptoms, no hearing loss. On arrival to the emergency room, the patient underwent testing which included a CT of the head and neck which showed no large vessel occlusion. ICA showed calcified plaque but no focal stenosis. His symptoms have since subsided. [facility] Medical History (Updated 06/11/24 @ 14:05 by CATRACHO Huizar) Diabetes mellitus Hyperlipidemia Hypertension Dermatitis associated with moisture Surgical History No pertinent past surgical history Social History Housing: House Alcohol intake: never Patient Tobacco Use Status: Never used Tobacco Smoked in Last 30 Days: No e-Cigarette/Vaping Use: Never Used Second Hand Smoke Exposure: No Use of substances other than those prescribed or required for medical reasons: No Advance Directives: No Advance Directives Information Provided: Yes service: No Current occupational status: retired Cognitive needs: No Hearing needs: No Vision needs: Yes (GLasses) Meds Allergies Allergy/AdvReac Type Severity Reaction Status Date / Time No Known Allergies Allergy Verified 06/11/24 08:55 Active Medications: Current Medications Acetaminophen (Acetaminophen 325 Mg Tablet) 650 mg PO Q6H PRN PRN Reason: Pain, Mild 1-3,fever,headache Ascorbic Acid (Ascorbic Acid 250 Mg Tablet) 250 mg PO DAILY NIR Calcium Carbonate (Calcium Carbonate 750 Mg Tab.Chew) 750 mg PO Q4H PRN PRN Reason: Heartburn Enoxaparin Sodium (Enoxaparin Sodium 40 Mg/0.4 Ml Syringe) 40 mg SUBCUT Q24H NIR Lisinopril (Lisinopril 10 Mg Tablet) 10 mg PO DAILY NIR; Protocol Magnesium Hydroxide (Milk Of Magnesia 30 Ml Oral.Susp) 30 ml PO DAILY PRN PRN Reason: Constipation Melatonin (Melatonin 3 Mg Tablet) 6 mg PO BEDTIME PRN PRN Reason: Insomnia Multivitamins/Vitamin C (Multivitamin Tablet) 1 tab PO DAILY NIR Multivitamins/Vitamin C (Multivitamin Tablet) 1 tab PO DAILY NIR Sodium Chloride (0.9 % Sodium Chloride Flush 3 Ml Syringe) 3 ml IVFLUSH QSHIFT NIR Home Medications ?Medication ?Instructions ?Recorded ?Confirmed ?Last Taken ?Type ascorbic acid (vitamin C) 250 mg 250 mg PO DAILY 06/11/24 06/11/24 06/11/24 History tablet (Vitamin C) multivitamin 1 tab PO DAILY 06/11/24 06/11/24 06/11/24 History vitamin B complex 1 tab PO DAILY 06/11/24 06/11/24 06/11/24 History vitamin E 268 mg (400 unit) capsule 268 mg PO DAILY 06/11/24 06/11/24 06/11/24 History Physical Exam Vital Signs and Narrative: Vital Signs: Last Vital Signs Temp 97.7 F 06/11/24 15:14 Pulse 58 06/11/24 15:14 Resp 17 06/11/24 15:14 BP 148/51 H 06/11/24 15:14 Pulse Ox 98 06/11/24 15:14 O2 Del Method Room Air 06/11/24 15:14 BMI result Body Mass Index 37.9 Const: Other: Constitutional - Awake and Alert, No apparent distress Eyes - PERRLA, EOMI Cardiovascular - S1S2, RRR, No edema Respiratory - Normal lung expansion, Normal respiratory effort, No respiratory distress, CTA bilaterally Gastrointestinal - NT / ND; +BS; No rebound or guarding - No CVA tenderness Extremities - no calf tenderness bilaterally, no swelling Musculoskeletal - Normal inspection, normal ROM Skin - Warm/Dry Neurological - Alert & oriented x3, No focal deficit; no nystagmus; rpia-ef-bxvj wnl; finger to nose wnl Psychological - Appropriate affect Results Labs 06/11/24 09:04 06/11/24 09:04 Labs: Laboratory Results - last 24 hr 06/11/24 06/11/24 06/11/24 09:04 11:45 12:19 MCV 88.4 MCH 30.4 MCHC 34.4 RDW 12.3 Plt Count 296 MPV 10.1 Immature Gran % (Auto) 0.2 Neut % (Auto) 42.3 L Lymph % (Auto) 42.7 H [place] % (Auto) 11.6 H Eos % (Auto) 2.6 Baso % (Auto) 0.6 Lymph # (Auto) 2.8 [place] # (Auto) 0.8 Eos # (Auto) 0.2 Baso # (Auto) 0.0 Abs Immat Gran (auto) 0.01 Absolute Neuts (auto) 2.8 Absolute Nucleated RBC 0.000 Nucleated RBC % (auto) 0.0 Anion Gap 15 Estim Creat Clear Calc 116.5 Estimated GFR > 60 Random Glucose 113 Calcium 9.3 Troponin I High Sens < 2.7 < 2.7 Influenza Type A (PCR) NEGATIVE Influenza Type B (PCR) NEGATIVE RSV RNA Qual (PCR) NEGATIVE SARS-CoV-2 RNA (RT-PCR) NEGATIVE Imaging Radiologist's Impressions: Impressions Head/Neck CTA 06/11/24 12:28 IMPRESSION: Calcified plaque left ICA. No high degree stenosis or dissection. No gross occlusion or embolus in the main cerebral arteries. No gross aneurysm, cerebral arteries. Atherosclerosis disease, cavernous and supraclinoid segments both ICA. Electronically signed by: Ryan Paredes MD 06/11/2024 01:27 PM [facility] [place] Assessment and Plan (1) Dizziness: Status: Acute Plan 58 yo M with risk factors for CVA presenting with acute worsened dizziness being placed under obs for further monitoring and evaluation. 1. Dizziness -- r/o cerebellar cva clinically does not appear to be acute CVA will check MRI, monitor on tele, neurology consult check lipids 2. DM hold metformin given contrast use on CTA using sliding scale and POC if needed 3. HTN continue baseline meds Full Code DVT pptx - lovenox Quality Stroke Does the patient have a stroke diagnosis?: No VTE Prior VTE?: No VTE Risk Level:: Medical - moderate - high VTE Device Contraindication: N/A - Device Ordered VTE Drug Contraindication: N/A - Med Ordered
--- NOTE | 2024-06-11 15:47 | PC.NURSE ---
MRI screening foem completed with pt; pt to have scan at 1700
[2024-06-11 16:02] LABS: Cholesterol 233 mg/dL (<200); HDL Cholesterol 34 mg/dL (>40); LDL Cholesterol Calculated 153 mg/dL (<100); Triglycerides 233 mg/dL (<150)
[2024-06-11 16:03] LABS: Glucose, Whole Blood 91 mg/dL (60-115)
[2024-06-11] MEDS: 0.9 % Sodium Chloride Flush 3 ML SYRINGE IVFLUSH (17:48)
[2024-06-11 21:55] LABS: Glucose, Whole Blood 154 mg/dL (60-115)
[2024-06-12 03:15] VITALS: BP 139/64; PULSE 56; RESP 20; TEMP 36.6; O2SAT 96
[2024-06-12 07:07] LABS: Glucose, Whole Blood 137 mg/dL (60-115)
[2024-06-12 07:14] VITALS: BP 125/58; PULSE 66; RESP 18; TEMP 36.9; O2SAT 95
[2024-06-12] MEDS: lisinopriL 10 MG TABLET PO (09:36)
[2024-06-12] MEDS: 0.9 % Sodium Chloride Flush 3 ML SYRINGE IVFLUSH (09:36)
[2024-06-12] MEDS: Multivitamin TABLET 1 TAB PO (09:36)
[2024-06-12] MEDS: Ascorbic Acid 250 MG TABLET PO (09:36)
[2024-06-12] MEDS: Flu Vacc TS2024-25(6mos up)/PF 0.5 ML SYRINGE IM (09:37)
[2024-06-12 10:53] LABS: Glucose, Whole Blood 125 mg/dL (60-115)
[2024-06-12 10:57] VITALS: BP 128/60; PULSE 64; RESP 18; TEMP 37; O2SAT 96
--- NOTE | 2024-06-12 11:12 | PM.NEUROCN ---
History of Present Illness Data of Consult Service Date: 06/12/24 Primary Care Provider: Avel Vee MD [facility] Reason for consult: Dizziness 58-year-old male with a past medical history of diabetes, hypertension, fatty liver who presents to the emergency room with worsening dizziness which began on the morning of admission. 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 Dizzy was described as a sense of unsteadiness and not spinning. He also was suffering from problem hearing from left ear for last 3 days. He denied any ear pain. He was having little bit of runny nose. There was no alteration of consciousness or visual symptom or focal arm or leg weakness. Speech was normal. Review of Systems Review of Systems: He was having right-sided head pressure for few days. ON LICENSE OF [facility] Past Medical History Medical History (Updated 06/11/24 @ 14:05 by CATRACHO Huizar) Diabetes mellitus Hyperlipidemia Hypertension Dermatitis associated with moisture Surgical History Surgical History No pertinent past surgical history Social History Social History Household Members: Significant Other Housing: House Alcohol intake: never Patient Tobacco Use Status: Never used Tobacco e-Cigarette/Vaping Use: Never Used Second Hand Smoke Exposure: No service: No Current occupational status: retired Cognitive needs: No Hearing needs: No Vision needs: Yes ([place]asses) Meds Allergies Allergy/AdvReac Type Severity Reaction Status Date / Time No Known Allergies Allergy Verified 06/11/24 08:55 Active Medications: Current Medications Acetaminophen (Acetaminophen 325 Mg Tablet) 650 mg PO Q6H PRN PRN Reason: Pain, Mild 1-3,fever,headache Ascorbic Acid (Ascorbic Acid 250 Mg Tablet) 250 mg PO DAILY [facility] Last Admin: 06/12/24 09:36 Dose: 250 mg Calcium Carbonate (Calcium Carbonate 750 Mg Tab.Chew) 750 mg PO Q4H PRN PRN Reason: Heartburn Enoxaparin Sodium (Enoxaparin Sodium 40 Mg/0.4 Ml Syringe) 40 mg SUBCUT Q24H [facility] Last Admin: 06/11/24 17:48 Dose: Not Given Lisinopril (Lisinopril 10 Mg Tablet) 10 mg PO DAILY [facility]; Protocol Last Admin: 06/12/24 09:36 Dose: 10 mg Magnesium Hydroxide (Milk Of Magnesia 30 Ml Oral.Susp) 30 ml PO DAILY PRN PRN Reason: Constipation Melatonin (Melatonin 3 Mg Tablet) 6 mg PO BEDTIME PRN PRN Reason: Insomnia Multivitamins/Vitamin C (Multivitamin Tablet) 1 tab PO DAILY [facility] Last Admin: 06/12/24 09:36 Dose: 1 tab Sodium Chloride (0.9 % Sodium Chloride Flush 3 Ml Syringe) 3 ml IVFLUSH QSHIFT [facility] Last Admin: 06/12/24 09:36 Dose: 3 ml Home Medications ?Medication ?Instructions ?Recorded ?Confirmed ?Last Taken ?Type ascorbic acid (vitamin C) 250 mg 250 mg PO DAILY 06/11/24 06/11/24 06/11/24 History tablet (Vitamin C) multivitamin 1 tab PO DAILY 06/11/24 06/11/24 06/11/24 History vitamin B complex 1 tab PO DAILY 06/11/24 06/11/24 06/11/24 History vitamin E 268 mg (400 unit) capsule 268 mg PO DAILY 06/11/24 06/11/24 06/11/24 History Physical Exam Vital Signs: Vital Signs: Last Vital Signs Temp 98.6 F 06/12/24 10:57 Pulse 64 06/12/24 10:57 Resp 18 06/12/24 10:57 BP 128/60 06/12/24 10:57 Pulse Ox 96 06/12/24 10:57 O2 Del Method Room Air 06/12/24 10:57 BMI result Body Mass Index 37.9 Neuro: Other: He is alert and awake with normal spontaneity of speech fluency comprehension and affect. Face is symmetrical. Visual whittaker are full. There is no pronator drift. Htxagh-cl-vtew testing is normal. Speech is normal. Deep tendon reflexes are trace to absent. Results Labs 06/11/24 09:04 06/11/24 09:04 Labs: MRI of brain did not reveal any acute abnormality. Mild chronic microvascular ischemic changes were noted. CTA did not reveal any vascular lesion. EKG revealed sinus rhythm. Assessment and Plan (1) Dizziness: Status: Acute Probably peripheral vestibular neuritis from common viral infection. Symptomatic treatment with meclizine is recommended. Procedures Date of Service Date of Service: 06/12/24
--- NOTE | 2024-06-12 11:18 | PM.DS ---
DS: Providers Provider Date of Service: 06/12/24 Date of admission: 06/11/24 15:41 Date of discharge: 06/12/24 Primary care physician: Avel Vee MD Consults: 06/11/24 15:43 Consult to Neurology Routine Consulting Provider: [facility] Reason for consultation: dizziness, to eval for cva DS: Diagnosis Discharge Diagnosis (1) Dizziness: Status: Acute DS: Summary Hospital Course Hospital Course: HPI From admission H&P: The patient is a 58-year-old male with a past medical history of diabetes, hypertension, fatty liver who presents to the emergency room with worsening dizziness which began on the morning of admission. The patient reports, that over the last several weeks, he has had several episodes of similar symptoms, although not as severe. He says he typically sits down and rests with the symptoms subsiding. During these episodes there are no other neurological deficits reported by him. No tinnitus, no recent URI symptoms, no hearing loss. On arrival to the emergency room, the patient underwent testing which included a CT of the head and neck which showed no large vessel occlusion. ICA showed calcified plaque but no focal stenosis. His symptoms have since subsided. Hospital Course: Patient was admitted under observation for concern over possible TIA/cerebellar infarct. He underwent an MRI which showed no acute findings. He was evaluated by Neurology who felt likely symptoms due to peripheral vestibular neuritis from viral infection. Symptomatic meclizine was recommended which the discharged. Patient seen and examined the day of discharge, he was stable for discharge. Final discharge diagnoses 1. Probable peripheral vestibular neuritis 2. Diabetes mellitus 3. Hypertension 4. Hyperlipidemia Time Attestation Discharge Coordination Time (in mins): less than 30 Quality: Safe Use of Opioids Does Pt have an Active Cancer Diagnosis on the Problem List?: No Quality: Stroke Does the patient have a stroke diagnosis?: No Physical Exam Vital Signs: Vital Signs: Last Vital Signs Temp 98.6 F 06/12/24 10:57 Pulse 64 06/12/24 10:57 Resp 18 06/12/24 10:57 BP 128/60 06/12/24 10:57 Pulse Ox 96 06/12/24 10:57 O2 Del Method Room Air 06/12/24 10:57 BMI result Body Mass Index 37.9 Const: Other: General - no acute distress, appears comfortable Cardiovascular - regular rate and rhythm, S1-S2 Lungs - normal respiratory effort, clear to auscultation bilaterally, no wheezing Abdomen - soft, nontender, no rebound or guarding Extremities - no edema bilaterally Neuro - awake and alert, no focal deficits DS: Data Data Completed and Pending Labs on day of discharge: Laboratory Results - last 24 hr 06/11/24 06/11/24 06/11/24 09:04 11:45 12:19 POC Glucose Troponin I High Sens < 2.7 Triglycerides 233 H Cholesterol 233 H LDL Cholesterol, Calc 153 H HDL Cholesterol 34 L Influenza Type A (PCR) NEGATIVE Influenza Type B (PCR) NEGATIVE RSV RNA Qual (PCR) NEGATIVE SARS-CoV-2 RNA (RT-PCR) NEGATIVE 06/11/24 06/11/24 06/12/24 15:58 21:48 07:00 POC Glucose 91 154 H 137 H Troponin I High Sens Triglycerides Cholesterol LDL Cholesterol, Calc HDL Cholesterol Influenza Type A (PCR) Influenza Type B (PCR) RSV RNA Qual (PCR) SARS-CoV-2 RNA (RT-PCR) 06/12/24 10:48 POC Glucose 125 H Troponin I High Sens Triglycerides Cholesterol LDL Cholesterol, Calc HDL Cholesterol Influenza Type A (PCR) Influenza Type B (PCR) RSV RNA Qual (PCR) SARS-CoV-2 RNA (RT-PCR) Discharge Plan Discharge Patient Disposition: Home Health Service Discharge Diagnosis: Peripheral vestibular neuritis Referrals: Avel Vee MD [Primary Care Provider] - 1 Week Discharge Medications: New meclizine 25 mg tablet 25 mg PO BID PRN (Reason: dizziness) Qty: 30 0RF Continued (DME) blood-glucose meter [FreeStyle [place] Lite] Kit See Rx Instructions .Route Qty: 1 0RF Rx Instructions: Test twice a day (DME) freestyle freedom lite test strips See Rx Instructions .Route .MEDSUPPLY Qty: 1 0RF Rx Instructions: As directed (DME) Freestyle freedom lite lancets See Rx Instructions .Route .MEDSUPPLY Qty: 1 0RF Rx Instructions: As directed lisinopril 10 mg tablet 10 mg PO DAILY Qty: 90 1RF multivitamin Tablet 1 tab PO DAILY ascorbic acid (vitamin C) [Vitamin C] 250 mg Tablet 250 mg PO DAILY vitamin B complex Tablet 1 tab PO DAILY vitamin E 268 mg (400 unit) Capsule 268 mg PO DAILY Held metformin 500 mg tablet 500 mg PO BID Qty: 180 1RF Hold Instructions: Resume on 06/13/24. Start 06/13 Discharge Orders: Discharge Order (Routine); Ordered 06/12/24 Ordered By: Tej Dudley Diet: Advance to usual diet Activity on Discharge: As tolerated Stand Alone Forms: Patient Portal Discharge page Print Language: Arabic Care Plan Goals: To stay healthy and out of the hospital. Health Concerns: see d/c summary Plan of Treatment: Take meclizine as needed for dizziness Do not take your metformin today (you received IV contrast for your CT scan). You can start it 06/13/24. Assessment: see d/c summary
--- NOTE | 2024-06-12 11:46 | MHC.CM.PN ---
Addendum entered by Precious Cesar 06/12/24 13:12: PT DISCHARGED HOME TODAY WITH NO SERVICES VIA PRIVATE TRANSPORT Original Note: TITLE I COORDINATOR MET WITH PT AT BEDSIDE PT LIVES AT HOME WITH PT DOES NOT USE SERVICES PT USES CPAP PT FILLED OUT HCP NAMING , LUCIE, , PROXY PT'S PCP LISTED IS LAURA DAVIS PT'S INS IS LEILA HUFF PT'S DCP- HOME NO SERVICES VIA PRIVATE TRANSPORT. PT GIVEN OBS NOTICE
== END 2024-06-12 12:50 | disposition home or self-care (01) ==
LOC: HO.ED 15:35 → HO.EDOVER 15:49 → HO.IMC 17:48
PROVIDERS: Physician Assistant Medical; Admitting Provider Family Medicine; Emergency Provider Emergency Medicine; PCP Internal Medicine; Visit Provider Family Medicine
DX: H81.20 Vestibular neuronitis, unspecified ear (principal); M54.2 Cervicalgia; E11.9 Type 2 diabetes mellitus without complications; I10 Essential (primary) hypertension; E78.5 Hyperlipidemia, unspecified; M25.511 Pain in right shoulder; K76.0 Fatty (change of) liver, not elsewhere classified; Z23 Encounter for immunization; Z79.899 Other long term (current) drug therapy; Z03.818 Encounter for observation for suspected exposure to other biological agents ruled out
CPT/HCPCS: 0241U; 36415; 70496; 70498; 70551; 80048; 80061; 82947; 84484; 85025; 90471; 90656; 93005; 94660; 96360; 96361; 99222; 99285; Q9967

== ENCOUNTER → 2024-06-11 08:56 | Outpatient (BNV) | payer BC, SELFPAY | PROVIDERS: Admitting Provider Family Medicine; Emergency Provider Emergency Medicine; PCP Internal Medicine; Visit Provider Internal Medicine | DX: R42 Dizziness and giddiness (principal) | CPT/HCPCS: 93010 ==

== ENCOUNTER → 2024-06-11 12:09 | Outpatient (BNV) | payer BC, SELFPAY | PROVIDERS: Emergency Provider Emergency Medicine; PCP Internal Medicine; Visit Provider Radiology Diagnostic Radiology | DX: I65.22 Occlusion and stenosis of left carotid artery (principal); I70.90 Unspecified atherosclerosis; R42 Dizziness and giddiness; R26.9 Unspecified abnormalities of gait and mobility | CPT/HCPCS: 70496; 70498; 70551 ==

== ENCOUNTER → 2024-06-11 15:41 | Outpatient (BNV) | payer BC, SELFPAY | PROVIDERS: Admitting Provider Family Medicine; Emergency Provider Emergency Medicine; PCP Internal Medicine; Visit Provider Family Medicine | DX: R42 Dizziness and giddiness (principal) | CPT/HCPCS: 99222; 99238 ==

== ENCOUNTER → 2024-06-11 15:41 | Outpatient (BNV) | payer BC, SELFPAY | PROVIDERS: Admitting Provider Family Medicine; Emergency Provider Emergency Medicine; PCP Internal Medicine; Visit Provider Psychiatry & Neurology Neurology | DX: R42 Dizziness and giddiness (principal) | CPT/HCPCS: 99222 ==

== ENCOUNTER 2024-06-16 08:53 | Outpatient (AMB) | payer BC, SELFPAY ==
--- NOTE | 2024-06-16 08:55 | A.OFFPC_ITS ---
Vital Signs 06/16/24 08:58 Height 5 ft 4 in Weight 221 lb 6 oz BMI 38.0 BP 124/62 Blood Pressure Location Lt brachial Position Sitting Pulse 69 Pulse Source Pulse Oximeter Temp 97.1 F Temp Source Temporal Artery Scan Pulse Oximetry (%) 95 Oxygen Delivery Method Room Air Intake Visit Reasons: [facility] dizziness 06/12 Athletic Director Required: No Accompanied by: Self / Same As Patient Allergies No Known Allergies Allergy (Verified 06/16/24 09:19) Medication List - Last Reconciled 06/16/24 by NUHA Ochoa ascorbic acid (vitamin C) (Vitamin C) 250 mg PO DAILY blood-glucose meter (FreeStyle Tower Lite kit) Test twice a day [Freestyle freedom lite lancets As directed] [freestyle freedom lite test strips As directed] lisinopril 10 mg PO DAILY meclizine 25 mg PO BID PRN metformin 500 mg PO BID multivitamin 1 tab PO DAILY vitamin B complex 1 tab PO DAILY vitamin E 268 mg PO DAILY Tobacco use date assessed: 06/16/24 Dental Screening Dental Screen Date: 06/16/24 Did you have a dental visit in the last 12 months?: Yes Did you have a dental problem in the last 6 months where you did not have access to dental care?: No Was dental information given to patient?: Patient has dentist HPI [facility] dizziness 06/12 HPI Details The patient is a 58-year-old male with past medical history of diabetes, hypertension, fatty liver and obesity Patient is presenting for a post hospital visit. The patient was admitted from 06/11/24 to 06/12/24 The patient went to the emergency room with worsening dizziness that began the morning of admission Patient reports multiple prior episodes similarly but less severe The patient underwent a CT of the head and neck which showed no large vessel occlusion ICA showed calcified plaque but no focal stenosis His symptoms subsided The patient was admitted on the observation for concern for possible TIA/cerebral infarct He underwent an MRI which showed no acute findings He was evaluated by neuro who felt like his symptoms were due to peripheral vestibular neuritis from viral infection Patient was discharged with p.r.n. meclizine In office, the patient reports having ringing in his ears, nasal congestion in the mornings and frontal pressure Reports that the hospital told him that they could not she has eardrums due to walks but did nothing about it reports that he bought debrox of [facility] and has been using it Reports that he is still have intermittent dizziness On exam: Nasal passage red and swollen with boggy turbinates, throat normal- appearing left ear with small amount of dried up waxes, TM with effusion right with scanty of brownish dried up waxes no effusion noted loratadine and flonase ordered report right shoulder pain: appears muscular, positive range of motion with reports of stiffness in his shoulder extending up into his neck, no swelling, negative empty can test, negative cross arm shoulder test: Encouraged patient to use tiger balm or aspercreme topical left hand unable to close on it's own. He has to use his right and to close the left. left fingers get stuck and he has to open it with his right. reports that it bothers him, finger clicks with range of motion. pain at the MCP joints of the fingers of the left hand. referral to hand specialist. TCM TCM Information Date of Discharge 06/15/24 Discharged From [facility] Interactive Contact Date (Reference documentation from this date) 06/15/24 [facility] Medical History (Updated 06/20/24 @ 00:02 by Ángel Ortiz) Dizziness Diabetes mellitus Hyperlipidemia Hypertension Dermatitis associated with moisture Surgical History No pertinent past surgical history Social History Household Members: Significant Other Housing: House Alcohol intake: never Patient Tobacco Use Status: Never used Tobacco e-Cigarette/Vaping Use: Never Used Second Hand Smoke Exposure: No service: No Current occupational status: retired Cognitive needs: No Hearing needs: No Vision needs: Yes (GLasses) Questionnaire PHQ-9 Over the last 2 weeks, how often have you been bothered by any of the following problems? 1. Little interest or pleasure in doing things: not at all 2. Feeling down, depressed, or hopeless: not at all 3. Trouble falling or staying asleep, or sleeping too much: not at all 4. Feeling tired or having little energy: not at all 5. Poor appetite or overeating: not at all 6. Feeling bad about yourself - or that you are a failure or have let yourself or your family down: not at all 7. Trouble concentrating on things, such as reading the newspaper or watching television: not at all 8. Moving or speaking so slowly that other people could have noticed. Or the opposite - being so fidgety or restless that you have been moving around a lot more than usual: not at all 9. Thoughts that you would be better off or of hurting yourself in some way: not at all Total score: 0 Depression Screening Interpretation: Negative Depression Screening Done: Yes 75862 - PHQ-9 Billing: Yes Source: Developed by Drs. Praveen Allan, Ashly Winslow, Shailesh Martinez and colleagues, with an educational yoli from [employer]. Thrive Questionnaire Date Thrive assessed: 06/16/24 I am a: Patient What is your living situation today?: I have a steady place to live Within the past 12 months, did the food you bought not last and you didn't have the money to get more?: Never true Within the past 12 months, did you worry whether your food would run out before you got money to buy more?: Never true Do you have trouble paying for medicines?: No Do you have trouble getting transportation to medical appointments?: No Do you have trouble paying your heating and electricity bill?: No Do you have trouble taking care of your child, family member or friend?: No Do you have trouble with day-to-day activities such as bathing, preparing meals, shopping, managing finances, etc.?: No Are you currently unemployed and looking for a job?: No Are you interested in more education?: No Please select the resources that you would like help with: None Currently or been in a relationship where the following occur: No concerns reported THRIVE Score: 0 AUDIT C Alcohol Use Questionnaire (AUDIT-C) 1. How often do you have a drink containing alcohol?: Never 3. How often do you have six or more drinks on one occasion?: Never Total Score: 0 ZAHIRA-7 AMB Questionnaire ZAHIRA-7 Date ZAHIRA - 7 assessed: 06/16/24 Feeling nervous, anxious, or on edge: 0 = Not at all Not being able to stop or control worryin = Not at all Worrying too much about different things: 0 = Not at all Trouble relaxin = Not at all Being so restless that it is hard to sit still: 0 = Not at all Becoming easily annoyed or irritable: 0 = Not at all Feeling afraid as if something awful might happen: 0 = Not at all Total ZAHIRA-7 score (0-4 normal; 5-9 mild; 10-14 moderate; 15-21 severe): 0 Source: Developed by Drs. Praveen Allan, Ashly Winslow, Shailesh Martinez and colleagues, with an educational yoli from [employer]. ZAHIRA-7 Assessment Billing ZAHRIA-7 Assessment Tool: ZAHIRA-7 Assessment 66937 Review of Systems Const Details: Denies chills, Denies fatigue, Denies fever(s), Denies headache(s) and Denies weakness HEENT Denies change in vision, reports intermittently dizziness, Denies headache(s), Denies hearing loss, reports nasal congestion, Denies sinus pain, +frontal sinus pressure and Denies sore throat other: ringing in the ears intermittently Card Denies chest pain, Denies lightheadedness, Denies dyspnea and Denies other (palpitations) Resp Denies cough, Denies dyspnea and Denies wheezing GI Denies abdominal pain, Denies melena, Denies hematochezia, Denies change in bowel habits, Denies dyspepsia and Denies nausea Denies hematuria and Denies dysuria Musc Denies abnormal gait, Denies myalgias, Denies arthralgias, Denies numbness and Denies tingling Skin/Breast Denies rash, Denies unusual bruising and Denies wounds Neuro Denies abnormal gait, Denies dizziness, Denies headache(s), Denies memory loss, Denies numbness, Denies Sensory deficit (Neuro), Denies tingling and Denies weakness Psych Denies anxiety, Denies depression and Denies memory loss Endo Denies cold intolerance, Denies fatigue, Denies heat intolerance, Denies polydipsia and Denies polyuria Emir/Lymph Denies easy bleeding and Denies easy bruising Aller/Immun Denies wheezing Physical exam (Primary Care) Vital Signs: Last Vital Signs Temp 97.1 F 06/16/24 08:58 Pulse 69 06/16/24 08:58 BP 124/62 06/16/24 08:58 Pulse Ox 95 06/16/24 08:58 Oxygen Delivery Method Room Air 06/16/24 08:58 BMI result Body Mass Index 38.0 Tobacco/Smoking Status: Tobacco use Status Tobacco use date assessed 06/16/24 06/16/24 09:07 Patient Tobacco Use Status Never used Tobacco 06/16/24 08:56 e-Cigarette/Vaping Use Never Used 06/16/24 08:56 PHQ-9: PHQ-9 Score PHQ-9: Total score 0 06/17/24 08:23 Depression Screening Interpretation: Negative Thrive Assessment: Date of Thrive Assessment Date Thrive assessed 06/16/24 06/16/24 09:07 Currently or been in a relationship where the following occur: No concerns reported Const Other: General: no acute distress, well developed, alert and awake Nutritional Appearance: well nourished Orientation/consciousness: patient oriented x3 HENMT Head: Yes normocephalic and Yes atraumatic Ears: hearing grossly normal bilaterally other: Nasal passage red and swollen with boggy turbinates, throat normal- appearing left ear with small amount of dried up waxes, TM with effusion right with scanty of brownish dried up waxes no effusion noted +frontal sinus pressure Eyes Pupils: Equal, round and reactive pupils present and Pupil accommodation reflex normal EOM: EOMs intact bilaterally Neck Neck: Yes normal visual inspection, Yes no lymphadenopathy and Yes trachea midline Thyroid: Thyroid normal Carotids: no bruits Lymphatic: no lymphadenopathy noted Chest Chest palpation & inspection: normal inspection of the chest Resp Effort & Inspection: normal respiratory effort Auscultation: clear to auscultation bilaterally Cardio Rate: regular rate Rhythm: regular rhythm Heart sounds: S1 normal heart sound present, S2 normal heart sound present, no gallops, no murmurs and no rubs Bruits: no abdominal aortic bruits and no carotid bruits GI Palpation (GI): Abdomen is soft and nontender to palpation Auscultation: normal bowel sounds General: Yes no CVA tenderness Back/Spine/Pelvis Back: no CVA tenderness Cervical Spine: cervical ROM normal and No Cervical spine tenderness Thoracic/Lumbar Spine: no lumbar tenderness right shoulder: stiffness extending up into right shoulder with ROM, negative empty can test, negative cross arm shoulder test Skin General: warm and dry. Normal skin color. Normal skin turgor Lesions: no lesions Nails: normal Neuro General: patient oriented x3, gait normal Cranial nerves: Yes Equal, round and reactive pupils present Cognition (Neuro): normal cognition Gait exam (Neuro): Normal gait present Extrem General: Yes normal to inspection, No edema and No calf tenderness +left hand weakness, unable to close fingers (the patient was hesitant to make his fingers locked) Psych Appearance: grossly normal Affect: normal affect Attitude: cooperative Thought process: Normal thought process present Coding Level of Care Code TCM Mod MDM <= 7 Days Diagnoses Dizziness R42 Trigger finger of all digits of left hand M65.322; M65.312; M65.332; M65.342; M65.352 Acute effusion of left ear H65.192 Allergic rhinitis, unspecified seasonality, unspecified trigger J30.9 Allergic rhinitis seasonality: unspecified Allergic rhinitis trigger: unspecified Acute pain of right shoulder M25.511 Chronicity: acute Additional Codes ZAHIRA-7 Assessment Billing - ZAHIRA-7 Assessment Tool: ZAHIRA-7 Assessment 72786 ([id number]) PHQ-9 - 25233 - PHQ-9 Billing: Yes ([id number]) Time Spent (min) 33 Assessment & Plan Assessment & Plan (1) Dizziness: Code(s): R42 - Dizziness and giddiness Category: Medical Plan: The patient was worked up for TID/stroke. He had showed no large vessel occlusion. ICA showed calcified plaque but no focal stenosis. He underwent an MRI that shows no acute findings. The patient was evaluated by Neurology who felt like his symptoms were due to peripheral vestibular neuritis from a viral infection. Ultimately, he was discharged on meclizine for symptomatic dizziness. The patient is presenting today with frontal sinus pressure, nasal congestion and a ringing in the ears. Patient reported that they told him in the hospital that his ears were blocked due to cerumen but nothing was done about this. Reported that when he got discharged he purchased Debrox ear drops from [employer] and has been using this. Patient noted to have small amount of dried cerumen in bilateral ear canals and effusion in left TM Loratadine 10 mg and Flonase nasal spray was ordered. The patient was instructed continue to use Debrox ear drops (2) Trigger finger of all digits of left hand: Code(s): M65.322 - Trigger finger, left index finger; M65.312 - Trigger thumb, left thumb; M65.332 - Trigger finger, left middle finger; M65.342 - Trigger finger, left ring finger; M65.352 - Trigger finger, left little finger Category: Medical Plan: Orthopedic referrals placed to hand specialist (3) Acute effusion of left ear: Code(s): H65.192 - Other acute nonsuppurative otitis media, left ear Category: Medical Plan: loratadine 10 mg ordered (4) Rhinitis, allergic: Code(s): J30.9 - Allergic rhinitis, unspecified Category: Medical Qualifiers: Allergic rhinitis seasonality: unspecified Allergic rhinitis trigger: unspecified Qualified Code(s): J30.9 - Allergic rhinitis, unspecified Plan: Fluticasone propionate 50 mcg/actuation 2 sprays the intranasal b.i.d. and loratadine 10 mg daily ordered (5) Right shoulder pain: Code(s): M25.511 - Pain in right shoulder Category: Medical Qualifiers: Chronicity: acute Qualified Code(s): M25.511 - Pain in right shoulder Plan: No red flags noted. Most likely muscular, the patient was instructed to use tiger balm or Aspercreme muscle rubs Instruct patient to also use warm compress into do frequent stretches Plan To return as scheduled in September 2024 for his annual physical examination with his PCP Orders: Referrals Orthopedics Referral M65.322 - Trigger finger, left index finger, M65.312 - Trigger thumb, left thumb, M65.332 - Trigger finger, left middle finger, M65.342 - Trigger finger, left ring finger, M65.352 - Trigger finger, left little finger Medications: New loratadine (Allergy Relief (loratadine)) 10 mg PO DAILY 30 tabs 0RF fluticasone propionate 50 mcg/actuation administer into each nostril 2 sprays intranasal BID 16 grams 1RF
[2024-06-16 08:58] VITALS: BP 124/62; PULSE 69; TEMP 36.2; O2SAT 95; BMI 38.0
--- OUTSIDE RECORDS SUMMARY | 2024-06-16 09:04 | XMS_ITS | Clinical Summary ---
Author Organization [facility] Address [address] [place] [address] Care Team Providers Care Sportspersons Name Role Phone Unavailable Primary Care Provider [...] Drug Screen 05/13/2023 Depression Annual Screen 05/13/2023 [id number] ( season) 2024 021, 07/26/2020 Imm-Influenza (#1) 2024 04/05/2020, 03/29/2019 Insurance [facility] Member Subscriber Plan / Payer (Ef fective 2020-Present) Name:Monteiro, Jose Relation to Subscriber:Self Name:MonteiroRamesh fields Payer ID:[id number] Type:Indemnity Address: [facility] [id number] [place] [address]
== END 2024-06-16 09:48 | disposition home or self-care (01) ==
PROVIDERS: PCP Internal Medicine
DX: R42 Dizziness and giddiness (principal); M65.322 Trigger finger, left index finger; M65.312 Trigger thumb, left thumb; M65.332 Trigger finger, left middle finger; M65.342 Trigger finger, left ring finger; M65.352 Trigger finger, left little finger; H65.192 Other acute nonsuppurative otitis media, left ear; J30.9 Allergic rhinitis, unspecified; M25.511 Pain in right shoulder

== ENCOUNTER → 2024-06-16 08:53 | Outpatient (BNVA) | payer BC, SELFPAY | PROVIDERS: PCP Internal Medicine | DX: R42 Dizziness and giddiness (principal); M65.322 Trigger finger, left index finger; M65.312 Trigger thumb, left thumb; M65.332 Trigger finger, left middle finger; M65.342 Trigger finger, left ring finger; M65.352 Trigger finger, left little finger; H65.192 Other acute nonsuppurative otitis media, left ear; J30.9 Allergic rhinitis, unspecified; M25.511 Pain in right shoulder | CPT/HCPCS: 96127 ==

== ENCOUNTER 2024-07-14 14:52 | Outpatient (AMB) | payer BC, SELFPAY ==
--- NOTE | 2024-07-14 15:13 | A.OFFVIS_ITS ---
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 Patient reports for a few months he has been experiencing locking and catching in his RF as well as pain at the base of his RF. He also states numbness and tingling in his palm. States since Saturday his symptoms have improved. Denies injury. No previous tx. 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 Patient reports for a few months he has been experiencing locking and catching in his RF as well as pain at the base of his RF. He also states numbness and tingling in his palm. States since Saturday his symptoms have improved. Denies injury. No previous tx for this trigger finger, but the patient does state that he has had a trigger finger in the past for which she was given a steroid injection with good relief. [facility] Medical History (Updated 07/15/24 @ 09:24 by CATRACHO Cruz) Dizziness Diabetes mellitus Hyperlipidemia Hypertension Dermatitis associated with moisture Surgical History No pertinent past surgical history Social History Household Members: Significant Other Housing: House Alcohol intake: never Patient Tobacco Use Status: Never used Tobacco e-Cigarette/Vaping Use: Never Used Second Hand Smoke Exposure: No service: No Current occupational status: retired Cognitive needs: No Hearing needs: No Vision needs: Yes (GLasses) Review of Systems Const All systems reviewed & are unremarkable except as noted in HPI and below Physical Exam Vital Signs: BMI result Body Mass Index 37.9 Extrem Other: Patient is alert, oriented, and in no acute distress. Neuro: Normal sensation of the tips of all digits of the left hand at this time Vascular: Cap refill brisk Pain: No tenderness to palpation of the A1 lexi of the left ring finger No pain associated with very mild locking and catching ROM: There is very mild locking catching of the left ring finger Patient was able to flex and extend all other digits of the left hand fully and without difficulty Skin: No lacerations or abrasions. General: No ecchymosis, erythema, or evidence of infection. Psych: Appears grossly normal Affect normal Attitude cooperative Assessment & Plan Assessment & Plan (1) Trigger finger, left ring finger: Code(s): M65.342 - Trigger finger, left ring finger Category: Medical Plan 1. Left ring finger trigger finger Improving over the last week Patient was educated about this condition Patient was educated of the treatment options available At this time, the patient would like to hold off on any intervention, as his symptoms are improving and remembers his previous injection giving him a significant amount of pain Patient was educated that he should return to us if he notices his symptoms failing to continue to improve or worsening Patient was amenable to this plan Patient will follow-up as needed with any acute concerns Coding Level of Care Code New Pt Level 3 (81962) Diagnoses Trigger finger, left ring finger M65.342
[2024-07-14 15:19] VITALS: BMI 37.9
--- OUTSIDE RECORDS SUMMARY | 2024-07-14 18:47 | XMS_ITS | Clinical Summary ---
Author Organization [facility] Address [address] [place] [address] Care Team Providers Care Private Investigator Surveillance Name Role Phone Unavailable Primary Care Provider [...] Drug Screen 05/13/2023 Depression Annual Screen 05/13/2023 [id number] ( season) 2024 021, 07/26/2020 Imm-Influenza (#1) 2024 04/05/2020, 03/29/2019 Insurance [facility] Member Subscriber Plan / Payer (Ef fective 2020-Present) Name:Monteiro, Jose Relation to Subscriber:Self Name:MonteiroRamesh fields Payer ID:[id number] Type:Indemnity Address: [facility] [id number] [place] [address]
== END 2024-07-14 15:37 | disposition home or self-care (01) ==
PROVIDERS: PCP Internal Medicine
DX: M65.342 Trigger finger, left ring finger (principal)
CPT/HCPCS: 99203

== ENCOUNTER → 2024-07-14 14:52 | Outpatient (BNVA) | payer BC, SELFPAY | PROVIDERS: PCP Internal Medicine; Visit Provider Orthopaedic Surgery ==

== ENCOUNTER 2024-09-04 07:58 | Emergency (ER) | payer BC, SELFPAY ==
[2024-09-04] VITALS (8 sets, daily range): BP systolic 128–168; BP diastolic 57–78; PULSE 70–83; RESP 16–22; TEMP 36.6–36.7; O2SAT 96–98; BMI 33.6
--- NOTE | 2024-09-04 | ECG_ITS ---
Test Reason : CHEST PAIN Blood Pressure : */* mmHG Vent. Rate : 70 BPM Atrial Rate : 70 BPM P-R Int : 160 ms QRS Dur : 88 ms QT Int : 382 ms P-R-T Axes : 58 46 55 degrees QTcB Int : 412 ms Normal sinus rhythm cannot exclude old Septal infarct , age undetermined Abnormal ECG When compared with ECG of 11-Jun-2024 09:01, No significant change was found Referred By: Generic ED Physician Electronically Signed By: CAROLYNN DWYER
--- NOTE | ~2024-09-04 | CT_ITS ---
EXAMINATION: CT CHEST ANGIOGRAPHY WITH IV CONTRAST INDICATION: chest pain just traveled from [place] COMPARISON: Correlation is made with PA and lateral views of the chest dated 07/29/2018. TECHNIQUE: Helical CT scan of the chest was performed following administration of intravenous contrast (65 mL Omnipaque 350). The contrast bolus was timed to optimally opacify the pulmonary arteries. Thin sections were obtained through the pulmonary arteries. Coronal and sagittal reformatted images were generated. 3D/MIP reconstructed images are also obtained and reviewed. This CT exam was performed with one or more of the following dose reduction techniques: automated exposure control, adjustment of the mA and/or kV according to patient size, use of iterative reconstruction technique. DLP: 376 mGy-cm CHEST: THYROID: The thyroid gland is unremarkable. PULMONARY ARTERIES: No intraluminal filling defects are identified within the pulmonary arteries to suggest pulmonary emboli. LUNGS: His mild dependent atelectasis at the right lung base. There is scarring at the left lung base. The lungs are otherwise clear. MEDIASTINUM: There is no mediastinal lymphadenopathy. BRY: There is no hilar lymphadenopathy. CARDIOVASCULATURE: The heart is normal in size. There is no pericardial effusion. The thoracic aorta is normal in caliber. DEGREE OF CORONARY CALCIFICATION: mild PLEURA: There is no pleural effusion. No pneumothorax. MAIN AIRWAYS: The mainstem bronchi and proximal branches are patent. AXILLA: There is no axillary lymphadenopathy. UPPER ABDOMEN: The liver demonstrates decreased attenuation, consistent with steatosis. The visualized portions of the spleen and adrenals are unremarkable. BONES AND SOFT TISSUES: Unremarkable. CT/CT angio chest PE protocol IMPRESSION: No evidence of pulmonary emboli. Mild dependent atelectasis. Hepatic steatosis. Electronically signed by: Praveen Perez MD 09/04/2024 09:31 AM EDT
[2024-09-04 08:14] LABS: MANUAL DIFF FLAG NO
[2024-09-04 08:21] LABS: INTERNATIONAL NORM RATIO 1.1 (0.9-1.1); Prothrombin Time 12.7 SEC (10.9-12.4)
[2024-09-04 08:24] LABS: Glucose, Whole Blood 247 mg/dL (60-115)
[2024-09-04 08:24] LABS: Basophils Percent Auto 0.5 % (0-2); Eosinophils Percent Auto 0.5 % (0-4); Hematocrit 42.4 % (42.0-52.0); Hemoglobin 14.9 g/dl (14.0-18.0); Imm Gran Abs Auto 0.03 X10*3/uL (0.00-0.03); Imm Gran Pct Auto 0.5 % (0.0-0.4); Mean Corpuscular HGB Conc 35.1 g/dl (31.0-36.0); Mean Corpuscular Hemoglobin 30.2 pg (27.0-33.0); Mean Corpuscular Volume 85.8 fL (80.0-98.0); Monocytes Absolute Auto 0.4 X10*3/uL (0.1-1.2); Monocytes Percent Auto 6.2 % (2-11); Neutrophils Absolute Auto 4.1 x10*3/uL (2.0-8.3); Neutrophils Percent Auto 62.3 % (45-73); Platelet Count 275 X10*3/uL (160-400); Red Blood Count 4.94 X10*6/uL (4.60-5.80); White Blood Count 6.6 X10*3/uL (4.8-10.8)
[2024-09-04 08:33] LABS: Alanine Aminotransferase 47 U/L (0-40); Albumin Level 4.5 g/dL (3.5-5.0); Alkaline Phosphatase 64 U/L (39-117); Anion Gap 15 (12-20); Aspartate Amino Transferase 27 U/L (5-37); Bilirubin Total 0.5 mg/dL (0.0-1.0); Blood Urea Nitrogen 12 mg/dL (9-16); Calcium 9.3 mg/dL (8.4-10.2); Carbon Dioxide 25 mmol/L (22-29); Chloride 103 mmol/L (96-108); Creatinine Clr Calc Pharmacy 126.7; Estimated Glomerular Filt Rate > 60; Glucose Random 258 mg/dL (60-115); Potassium 4.5 mmol/L (3.3-5.1); Sodium 138 mmol/L (135-145); Total Protein 7.8 g/dL (6.5-8.0)
[2024-09-04] MEDS: Morphine Sulfate 4 MG/ML CARTRIDGE IVPUSH (08:40)
[2024-09-04] MEDS: ondansetron HCL 4 MG/2 ML VIAL IVPUSH (08:40)
[2024-09-04] MEDS: Lactated Ringers 1,000 ML 999 ML IV ×2 (08:40→12:32)
--- NOTE | 2024-09-04 08:41 | ED_ITS ---
HPI - Chest Pain General Chief Complaint: Chest Pain Stated Complaint: Chest Pain, Dizzy Time Seen by Provider: 09/04/24 08:12 Source: patient, family and old records reviewed Mode of arrival: ambulatory Limitations: no limitations History of Present Illness ED Provider: PRUDENCIO HPI narrative: 58 yo male with PMH of HTN, HLD, DM recent trip to [place] with return flight yesterday. He woke up this morning around 6am with central chest pain nausea body aches dizziness and whole body pain. He states he is not short of breath but thinks he looks short of breath. He reports no cough or fever. He also threw up this AM. He has never had VTE before. No known CAD and states admit in 05/2024 for dizziness so he took meclizine at home and dizziness is better. His work up on that admit was suggestive of peripheral dizziness cause. He denies cough, fevers, abdominal pain. MD complaint: chest pain Onset (ago): day(s) (6am today) Timing of current episode: constant Prior episodes: No Onset: during rest Pain location: substernal Pain radiation: none Severity: moderate Quality: other (pressure) Relieving factors: nothing Exacerbating factors: movement Context: recent travel Associated symptoms: nausea, vomiting, diaphoresis and dyspnea Treatment prior to arrival: other (meclizine) Related Data Home Medications ?Medication ?Instructions ?Recorded ?Confirmed ascorbic acid (vitamin C) 250 mg 250 mg PO DAILY 06/11/24 06/16/24 tablet (Vitamin C) multivitamin 1 tab PO DAILY 06/11/24 06/16/24 vitamin B complex 1 tab PO DAILY 06/11/24 06/16/24 vitamin E 268 mg (400 unit) capsule 268 mg PO DAILY 06/11/24 06/16/24 Previous Rx's ?Medication ?Instructions ?Recorded Freestyle freedom lite lancets #1 ea 12/09/23 blood-glucose meter (FreeStyle #1 12/09/23 [place]on Lite kit) freestyle freedom lite test strips #1 ea 12/09/23 lisinopril 10 mg tablet 10 mg PO DAILY #90 tabs 02/21/24 metformin 500 mg tablet 500 mg PO BID #180 tabs 06/05/24 meclizine 25 mg tablet 25 mg PO BID PRN dizziness #30 tabs 06/12/24 fluticasone propionate 50 2 spray intranasal BID #16 grams 06/16/24 mcg/actuation nasal spray,suspension loratadine 10 mg disintegrating 10 mg PO DAILY #30 tabs 06/16/24 tablet (Allergy Relief (loratadine)) Allergies Allergy/AdvReac Type Severity Reaction Status Date / Time No Known Allergies Allergy Verified 09/04/24 08:07 Review of Systems 2 Review of Systems: Constitutional : No Weight loss, No Fever, No Chills ENT/Mouth : No sore throat, No Rhinorrhea Eyes: No Eye Pain, No Swelling Cardiovascular : pos Chest Pain, pos SOB, no Dyspnea on Exertion, No Orthopnea, No Edema, No Palpitations Respiratory : No Cough, No Sputum Gastrointestinal : pos Nausea, pos Vomiting, No Diarrhea, No abdominal Pain, No Hematochezia, No Melena Genitourinary : No Dysuria, No Urinary Frequency Musculoskeletal : No joint pain, No Myalgias, No Joint Swelling Skin : No Skin Lesions, No rash Neuro : No Weakness, No Numbness, pos Dizziness, No Headache All other systems reviewed and are negative [facility] Past Medical History Attestation statement: The following information was validated with the patient. Source: old records reviewed Medical History Dizziness Diabetes mellitus Hyperlipidemia Hypertension Dermatitis associated with moisture Surgical History No pertinent past surgical history Social History Social History Household Members: Significant Other Housing: House Alcohol intake: never Patient Tobacco Use Status: Never used Tobacco Smoked in Last 30 Days: No e-Cigarette/Vaping Use: Never Used Second Hand Smoke Exposure: No Use of substances other than those prescribed or required for medical reasons: No Advance Directives: No Advance Directives Information Provided: No service: No Current occupational status: retired Cognitive needs: No Hearing needs: No Vision needs: Yes (GLasses) Physical Exam 2 Vital Signs: Vital Signs: Last Vital Signs Temp 97.8 F 09/04/24 08:04 Pulse 70 09/04/24 12:15 Resp 19 09/04/24 12:15 BP 132/70 09/04/24 12:15 Pulse Ox 96 09/04/24 12:15 O2 Del Method Room Air 09/04/24 12:15 BMI result Body Mass Index 33.6 Appearance: Alert. Oriented X3. No acute distress. Eyes: Pupils equal, round and reactive to light. no nystagmus ENT: Pharynx normal. TMs normal bilaterally Neck: Normal inspection. Neck supple. CVS: Normal heart rate and rhythm. Pulses normal. Respiratory: No respiratory distress. Breath sounds normal. Abdomen: Soft and nontender. Skin: Skin warm and dry. Normal skin color. Normal skin turgor. Extremities: trace pitting symmetric lower extremity edema. No calf ttp Neuro: Oriented X 3. No motor deficit. No sensory deficit. CN2-12 intact Course Course Course Narrative: MRI work up for stroke/cerebellar infarct done for episodes of dizziness felt to be peripheral this was done in May 2024 Medications Administered Discontinued Medications Generic Name Dose Route Start Last Admin Trade Name Freq PRN Reason Stop Dose Admin Lactated Ringer's 1,000 mls @ 999 mls/hr 09/04/24 08:15 09/04/24 09:41 Lr IV 09/04/24 09:15 Infused .Q1H1M ONE Infusion Lactated Ringer's 1,000 mls @ 999 mls/hr 09/04/24 11:47 09/04/24 12:32 Lr IV 09/04/24 12:47 999 mls/hr .Q1H1M ONE Administration Acetaminophen 1,000 mg in 100 mls @ 400 mls/hr 09/04/24 11:47 09/04/24 12:08 Ofirmev IV 09/04/24 12:01 Infused ONCE ONE Infusion Iohexol 100 ml 09/04/24 09:19 09/04/24 09:20 Iohexol 350 Mg/Ml 100 Ml Infus..Btl IV 09/04/24 09:20 65 ml ONCE ONE Administration Meclizine HCl 25 mg 09/04/24 13:44 09/04/24 13:54 Meclizine Hcl 25 Mg Tablet PO 09/04/24 13:45 25 mg ONCE ONE Administration Morphine Sulfate 4 mg 09/04/24 08:15 09/04/24 08:40 Morphine Sulfate 4 Mg/Ml Cartridge IVPUSH 09/04/24 08:16 4 mg ONCE ONE Administration Protocol Ondansetron HCl 4 mg 09/04/24 08:15 09/04/24 08:40 Ondansetron Hcl 4 Mg/2 Ml Vial IVPUSH 09/04/24 08:16 4 mg ONCE ONE Administration Medical Decision Making Medical Decision Making [facility] Narrative: 58 yo male with PMH of HTN, HLD, DM here with c/o chest pressure n/v, dizziness and appears short of breath - he also reports body aches and feeling terrible this all started acutely at 6am. At this time given his co-morbidities will obtain viral panel, trop x 2, CTA for PE given travel to [place]. I have ordered LR, morphine/zofran. He has no neuro deficits to suggest posterior stroke and has had a work up in May that was negative for posterior stroke. Distal pulses intact doubt dissection Differential Diagnosis Differential Diagnoses: The differential diagnosis associated with the presentation includes ACS, VTE, GERD, pancreatitis, distal pulses intact no radiation of pain to suggest dissection, viral syndrome Admission/Observation Consideration of admission/observation: Escalation of care including admission/observation considered EKG negative, no dissection, no PE, trop flat x 2, BNP negative mild bump in lipase but no abdominal pain on exam VS stable at this time work up reassuring up and walking much better with 2L of IVF was walking in the hot sun for 2 days and not drinking much at this time stable for DC eating and drinking Lab Data [facility] Lab Attestation statement: I reviewed the patient's lab results. 09/04/24 08:10 09/04/24 08:10 Labs: Lab Results 09/04/24 09/04/24 09/04/24 Range/Units 08:10 08:17 08:49 WBC 6.6 (4.8-10.8) X10*3/uL RBC 4.94 (4.60-5.80) X10*6/uL Hgb 14.9 (14.0-18.0) g/dl Hct 42.4 (42.0-52.0) % MCV 85.8 (80.0-98.0) fL MCH 30.2 (27.0-33.0) pg MCHC 35.1 (31.0-36.0) g/dl RDW 12.0 (11.0-16.0) % Plt Count 275 (160-400) X10*3/uL MPV 10.0 (9.4-12.4) fL Immature Gran % (Auto) 0.5 H (0.0-0.4) % Neut % (Auto) 62.3 (45-73) % Lymph % (Auto) 30.0 (20-40) % [place] % (Auto) 6.2 (2-11) % Eos % (Auto) 0.5 (0-4) % Baso % (Auto) 0.5 (0-2) % Lymph # (Auto) 2.0 (1.2-4.9) X10*3/uL [place] # (Auto) 0.4 (0.1-1.2) X10*3/uL Eos # (Auto) 0.0 (0.0-0.4) X10*3/uL Baso # (Auto) 0.0 (0.0-0.2) X10*3/uL Abs Immat Gran (auto) 0.03 (0.00-0.03) X10*3/uL Absolute Neuts (auto) 4.1 (2.0-8.3) x10*3/uL Absolute Nucleated RBC 0.000 (0.0-0.012) X10*3/uL Nucleated RBC % (auto) 0.0 (0.0-0.2) /100WBC PT 12.7 H (10.9-12.4) SEC INR 1.1 (0.9-1.1) Sodium 138 (135-145) mmol/L Potassium 4.5 (3.3-5.1) mmol/L Chloride 103 (96-108) mmol/L Carbon Dioxide 25 (22-29) mmol/L Anion Gap 15 (12-20) BUN 12 (9-16) mg/dL Creatinine 0.72 (0.5-1.4) mg/dL Estim Creat Clear Calc 126.7 Estimated GFR > 60 POC Glucose 247 H (60-115) mg/dL Random Glucose 258 H (60-115) mg/dL Calcium 9.3 (8.4-10.2) mg/dL Total Bilirubin 0.5 (0.0-1.0) mg/dL AST 27 (5-37) U/L ALT 47 H (0-40) U/L Alkaline Phosphatase 64 (39-117) U/L Troponin I High Sens < 2.7 (<3.5-35.0) ng/L B-Natriuretic Peptide 13 (<100) pg/mL Total Protein 7.8 (6.5-8.0) g/dL Albumin 4.5 (3.5-5.0) g/dL Lipase 89 H (8-78) U/L Influenza Type A (PCR) NEGATIVE (Negative) Influenza Type B (PCR) NEGATIVE (Negative) RSV RNA Qual (PCR) NEGATIVE (Negative) SARS-CoV-2 RNA (RT-PCR) NEGATIVE (Negative) 09/04/24 09/04/24 Range/Units 10:27 11:09 WBC (4.8-10.8) X10*3/uL RBC (4.60-5.80) X10*6/uL Hgb (14.0-18.0) g/dl Hct (42.0-52.0) % MCV (80.0-98.0) fL MCH (27.0-33.0) pg MCHC (31.0-36.0) g/dl RDW (11.0-16.0) % Plt Count (160-400) X10*3/uL MPV (9.4-12.4) fL Immature Gran % (Auto) (0.0-0.4) % Neut % (Auto) (45-73) % Lymph % (Auto) (20-40) % [place] % (Auto) (2-11) % Eos % (Auto) (0-4) % Baso % (Auto) (0-2) % Lymph # (Auto) (1.2-4.9) X10*3/uL [place] # (Auto) (0.1-1.2) X10*3/uL Eos # (Auto) (0.0-0.4) X10*3/uL Baso # (Auto) (0.0-0.2) X10*3/uL Abs Immat Gran (auto) (0.00-0.03) X10*3/uL Absolute Neuts (auto) (2.0-8.3) x10*3/uL Absolute Nucleated RBC (0.0-0.012) X10*3/uL Nucleated RBC % (auto) (0.0-0.2) /100WBC PT (10.9-12.4) SEC INR (0.9-1.1) Sodium (135-145) mmol/L Potassium (3.3-5.1) mmol/L Chloride (96-108) mmol/L Carbon Dioxide (22-29) mmol/L Anion Gap (12-20) BUN (9-16) mg/dL Creatinine (0.5-1.4) mg/dL Estim Creat Clear Calc Estimated GFR POC Glucose 224 H (60-115) mg/dL Random Glucose (60-115) mg/dL Calcium (8.4-10.2) mg/dL Total Bilirubin (0.0-1.0) mg/dL AST (5-37) U/L ALT (0-40) U/L Alkaline Phosphatase (39-117) U/L Troponin I High Sens < 2.7 (<3.5-35.0) ng/L B-Natriuretic Peptide (<100) pg/mL Total Protein (6.5-8.0) g/dL Albumin (3.5-5.0) g/dL Lipase (8-78) U/L Influenza Type A (PCR) (Negative) Influenza Type B (PCR) (Negative) RSV RNA Qual (PCR) (Negative) SARS-CoV-2 RNA (RT-PCR) (Negative) Independent Interpretation I performed an independent interpretation of an: EKG and CT Scan (no PE) Interpretation: Rate: 70 Rhythm: NSR Yoder: normal Normal P waves. Normal TRISTON. Normal QRS complex. ST T wave : normal no DENISHA qTC: 412 prior studies: no acute ischemia The study has been interpreted contemporaneously by me. . Radiology Impression Discussion of test interpretation with radiology: I have reviewed the radiologist's reading. Independent Historian Clinical information obtained from an independent historian. History obtained from or confirmed by: Spouse External Record Review External record reviewed: Inpatient record and Outpatient record Discharge Plan Discharge Clinical Impression: Atypical chest pain, Dizziness, Acute dehydration Patient Disposition: Home, Self-Care Instructions: Chest Pain (ED), Dehydration (ED), Dizziness (ED) Additional Instructions: return for worsening symptoms such as return of vomiting, pain, numbness, weakness or any other concerns EKG and repeat test for the heart are normal kidney function, liver panel and blood counts reassuring CT scan of the chest - no dissection of aorta, no blood clots, no pneumonia, no fluid on lungs or heart rest and stay hydrated stay out of the heat negative for COVID, FLU, RSV Prescriptions: No Action (DME) blood-glucose meter [FreeStyle [place]on Lite] Kit See Rx Instructions .Route Qty: 1 0RF Rx Instructions: Test twice a day (DME) freestyle freedom lite test strips See Rx Instructions .Route .MEDSUPPLY Qty: 1 0RF Rx Instructions: As directed (DME) Freestyle freedom lite lancets See Rx Instructions .Route .MEDSUPPLY Qty: 1 0RF Rx Instructions: As directed lisinopril 10 mg tablet 10 mg PO DAILY Qty: 90 1RF metformin 500 mg tablet 500 mg PO BID Qty: 180 1RF multivitamin Tablet 1 tab PO DAILY ascorbic acid (vitamin C) [Vitamin C] 250 mg Tablet 250 mg PO DAILY vitamin B complex Tablet 1 tab PO DAILY vitamin E 268 mg (400 unit) Capsule 268 mg PO DAILY meclizine 25 mg tablet 25 mg PO BID PRN (Reason: dizziness) Qty: 30 0RF fluticasone propionate 50 mcg/actuation spray,suspension 2 spray intranasal BID Qty: 16 1RF Rx Instructions: administer into each nostril loratadine [Allergy Relief (loratadine)] 10 mg tablet,disintegrating 10 mg PO DAILY Qty: 30 0RF Print Language: Portuguese
--- NOTE | 2024-09-04 08:42 | PC.NURSE ---
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
--- OUTSIDE RECORDS SUMMARY | 2024-09-04 08:42 | XMS_ITS | Clinical Summary ---
Author Organization [facility] Address [address] [place] [address] Care Team Providers Care Senior Training Specialist Name Role Phone Unavailable Primary Care Provider Unavailabl e Source Comments PLEASE NOTE, if this patient is a minor, it may be UNLAWFUL to discuss sensitive information that is contained in these records (such as FAMILY PLANNING, MENTAL HEALTH or SUBSTANCE ABUSE) with the minor patient's parent or other person without the patient's specific authorization.[facility] Immunizations Immunization Administration Dates Next Due Moderna COVID-19 Vaccine, [...] Health Maintenance Due Date Last Done Comments Anxiety Screening 1965 Diabetes Screening 1964 Hepatitis C Screening 1964 Lipid Screening 1964 Tobacco Screening 1964 HIV Screening 09/28/1979 Hypertension Screening (#1) 1982 Imm-DTaP/Tdap/Td (1 - Tdap) 09/28/1983 Imm-Hepatitis B (1 of 3 - 19 + 3-dose series) 09/28/1983 CT Colonography 2009 Colonoscopy 2009 Colorectal Cancer Screening 2009 FIT/gFOBT 2009 Fecal DNA 2009 Flexible Sigmoidoscopy 2009 Imm-Zoster, Recombinant (1 of 2) 2014 Omd-AYLUA-90 (3 2023- season) 2024 021, 07/26/2020 Imm-Influenza (#1) 2024 04/05/2020, 03/29/2019 Alcohol and Drug Screen 05/13/2024 Depression Annual Screen 05/13/2024 Insurance [facility] Member Subscriber Plan / Payer (Ef fective 2020-Present) Name:MonteiroRamesh Relation to Subscriber:Self Name:Monteiro, Jose Payer ID:[id number] Type:Indemnity Address: [facility] [id number] [place] [address]
[2024-09-04 08:44] LABS: Troponin-I High Sensitivity < 2.7 ng/L (<3.5-35.0)
[2024-09-04 08:59] LABS: Lipase 89 U/L (8-78)
[2024-09-04 09:10] LABS: B Type Natriuretic Peptide 13 pg/mL (<100)
[2024-09-04] MEDS: iohexoL 350 MG/ML 100 ML INFUS..BTL IV (09:20)
[2024-09-04 09:57] LABS: Influenza A PCR NEGATIVE (Negative); Influenza B PCR NEGATIVE (Negative); Resp Syncy Virus RNA Qual PCR NEGATIVE (Negative); SARS COV2 PCR INHOUSE NEGATIVE (Negative)
[2024-09-04 10:32] LABS: Glucose, Whole Blood 224 mg/dL (60-115)
[2024-09-04 11:40] LABS: Troponin-I High Sensitivity < 2.7 ng/L (<3.5-35.0)
--- NOTE | 2024-09-04 11:45 | PC.NURSE ---
patient was given gingerale and crackers to attempt to eat, states she has big concern over his dizziness and increased lethargy despite testing coming back normal so far. will notify provider
[2024-09-04] MEDS: Acetaminophen 1,000 MG/100 ML PIGGYBACK 400 MG IV (11:53)
--- NOTE | 2024-09-04 11:56 | PC.NURSE ---
patient c/o 10 abd pain/chest discomfort, pt also requesting something for dizziness.
--- NOTE | 2024-09-04 12:23 | PC.NURSE ---
pt ambulated to bathroom with , pt c/o increased dizziness while ambulating.
--- NOTE | 2024-09-04 12:33 | PC.NURSE ---
ivf running per order
[2024-09-04] MEDS: Meclizine HCl 25 MG TABLET PO (13:54)
--- NOTE | 2024-09-04 13:55 | PC.NURSE ---
pt a&ox3, orthostats being performed, pt states he feels much better, medicated per order, provider notified, plan of care ongoing
== END 2024-09-04 14:19 | disposition home or self-care (01) ==
PROVIDERS: Emergency Provider Emergency Medicine; PCP Internal Medicine
DX: R07.89 Other chest pain (principal); R42 Dizziness and giddiness; E86.0 Dehydration; R11.2 Nausea with vomiting, unspecified; R06.00 Dyspnea, unspecified; R06.02 Shortness of breath; E11.9 Type 2 diabetes mellitus without complications; I10 Essential (primary) hypertension; E78.5 Hyperlipidemia, unspecified; Z03.818 Encounter for observation for suspected exposure to other biological agents ruled out; Z79.899 Other long term (current) drug therapy; Z79.84 Long term (current) use of oral hypoglycemic drugs
CPT/HCPCS: 0241U; 36415; 71275; 80053; 82947; 83690; 83880; 84484; 85025; 85610; 93005; 96361; 96374; 96375; 99284; 99285; J0131; J2270; J2405; J7120; Q9967

== ENCOUNTER → 2024-09-04 08:03 | Outpatient (BNV) | payer BC, SELFPAY | PROVIDERS: Emergency Provider Emergency Medicine; PCP Internal Medicine; Visit Provider Internal Medicine | DX: R94.31 Abnormal electrocardiogram [ECG] [EKG] (principal); R07.9 Chest pain, unspecified | CPT/HCPCS: 93010 ==

== ENCOUNTER → 2024-09-04 08:15 | Outpatient (BNV) | payer BC, SELFPAY | PROVIDERS: Emergency Provider Emergency Medicine; PCP Internal Medicine; Visit Provider Radiology Diagnostic Radiology | DX: K76.0 Fatty (change of) liver, not elsewhere classified (principal) | CPT/HCPCS: 71275 ==

== ENCOUNTER 2024-09-17 15:00 | Outpatient (AMB) | payer BC, SELFPAY ==
--- NOTE | 2024-09-17 15:12 | A.OFFPC_ITS ---
Vital Signs 09/17/24 15:13 Height 5 ft 8 in Weight 213 lb 2 oz BMI 32.4 BP 132/64 Blood Pressure Location Lt brachial Position Sitting Pulse 83 Pulse Source Pulse Oximeter Temp 96.6 F L Temp Source Temporal Artery Scan Pulse Oximetry (%) 95 Oxygen Delivery Method Room Air Intake Visit Reasons: Annual Exam Intake Note: Patient is here today for a physical. Asp Developer Required: No Web Art Director: Not Required per policy Accompanied by: Self / Same As Patient Allergies No Known Allergies Allergy (Verified 09/17/24 15:29) Medication List - Last Reconciled 09/17/24 by Ban Cartagena PA-C ascorbic acid (vitamin C) (Vitamin C) 250 mg PO DAILY blood-glucose meter (FreeStyle Eros Lite kit) Test twice a day fluticasone propionate 50 mcg/actuation 2 sprays intranasal BID [Freestyle freedom lite lancets As directed] [freestyle freedom lite test strips As directed] lisinopril 10 mg PO DAILY loratadine (Allergy Relief (loratadine)) 10 mg PO DAILY meclizine 25 mg PO BID PRN metformin 500 mg PO BID multivitamin 1 tab PO DAILY vitamin B complex 1 tab PO DAILY vitamin E 268 mg PO DAILY Tobacco use date assessed: 09/17/24 Dental Screening Dental Screen Date: 06/16/24 HPI Annual Exam HPI Details The patient is a 58-year-old male presenting for an annual physical. In addition he would like to discuss an ER visit for dizziness. Patient presents with persistent dizziness. The dizziness began two weeks before the visit, characterized by a sensation of pressure when he lies flat and worsens with rapid movements. He reports this started when he came back from a vacation from [place]. The patient denies falls and ear infections but recalls severe dehydration requiring emergency care. When he went to [facility] he had negative EKG, negative troponin and he had a normal neuro exam. He did not have any imaging of his brain due to he had a normal MRI May 2024. They gave him IV fluids, Zofran and morphine and his symptoms improved. He had also taken some meclizine which helped improve his symptoms. He reports a lack of appetite and thirst impacting hydration, despite efforts to drink water. There is significant fatigue and discouragement, affecting daily activities and musical pursuits. The patient has diabetes, with an improved A1c of 7.1%, and uses a CPAP machine for sleep apnea. He has previously used meclizine with partial benefit. 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 - Reports decreased engagement in [employer] activities due to health issues. [facility] Medical History (Updated 09/17/24 @ 16:21 by Ban Cartagena PA-C) Class 1 obesity with body mass index (BMI) of 32.0 to 32.9 in adult Sleep apnea Dizziness Meniere disease Fatigue Neck pain Diabetes mellitus Hyperlipidemia Hypertension Dermatitis associated with moisture Surgical History No pertinent past surgical history Social History Household Members: Significant Other Housing: House Alcohol intake: never Patient Tobacco Use Status: Never used Tobacco e-Cigarette/Vaping Use: Never Used Second Hand Smoke Exposure: No service: No Current occupational status: retired Cognitive needs: No Hearing needs: No Vision needs: Yes (GLasses) Questionnaire PHQ-9 Over the last 2 weeks, how often have you been bothered by any of the following problems? 1. Little interest or pleasure in doing things: not at all 2. Feeling down, depressed, or hopeless: not at all 3. Trouble falling or staying asleep, or sleeping too much: nearly every day 4. Feeling tired or having little energy: nearly every day 5. Poor appetite or overeating: more than half the days 6. Feeling bad about yourself - or that you are a failure or have let yourself or your family down: not at all 7. Trouble concentrating on things, such as reading the newspaper or watching television: not at all 8. Moving or speaking so slowly that other people could have noticed. Or the opposite - being so fidgety or restless that you have been moving around a lot more than usual: not at all 9. Thoughts that you would be better off or of hurting yourself in some way: not at all Total score: 8 Depression Screening Interpretation: Positive Depression Screening Follow-up: Existing condition and In treatment Depression Screening Done: Yes 38538 - PHQ-9 Billing: Yes Source: Developed by Drs. Praveen Allan, Ashly WinslowShailesh and colleagues, with an educational yoli from [employer]. Thrive Questionnaire Date Thrive assessed: 06/16/24 I am a: Patient What is your living situation today?: I have a steady place to live Within the past 12 months, did the food you bought not last and you didn't have the money to get more?: I choose not to answer this question Within the past 12 months, did you worry whether your food would run out before you got money to buy more?: I choose not to answer this question Do you have trouble paying for medicines?: No Do you have trouble getting transportation to medical appointments?: I choose not to answer this question Do you have trouble paying your heating and electricity bill?: I choose not to answer this question Do you have trouble taking care of your child, family member or friend?: I choose not to answer this question Do you have trouble with day-to-day activities such as bathing, preparing meals, shopping, managing finances, etc.?: I choose not to answer this question Are you currently unemployed and looking for a job?: I choose not to answer this question Are you interested in more education?: I choose not to answer this question Please select the resources that you would like help with: None Currently or been in a relationship where the following occur: I choose not to answer THRIVE Score: 0 AUDIT C Alcohol Use Questionnaire (AUDIT-C) 1. How often do you have a drink containing alcohol?: Never Total Score: 0 Score Reviewed/Action Taken: No ZAHIRA-7 AMB Questionnaire ZAHIRA-7 Date ZAHIRA - 7 assessed: 06/16/24 Feeling nervous, anxious, or on edge: 0 = Not at all Not being able to stop or control worryin = Not at all Worrying too much about different things: 0 = Not at all Trouble relaxin = Not at all Being so restless that it is hard to sit still: 0 = Not at all Becoming easily annoyed or irritable: 0 = Not at all Feeling afraid as if something awful might happen: 0 = Not at all Total ZAHIRA-7 score (0-4 normal; 5-9 mild; 10-14 moderate; 15-21 severe): 0 Source: Developed by Drs. Praveen Allan, Shailesh Rhodes and colleagues, with an educational yoli from [employer]. ZAHIRA-7 Assessment Billing ZAHIRA-7 Assessment Tool: ZAHIRA-7 Assessment 07810 Review of Systems Const Details: Appearance: Alert. Oriented X3. No acute distress. Head: Normal external exam. Normocephalic. Atraumatic. Eyes: Pupils are equal, round, and reactive to light. Extraocular movements intact. Conjunctiva and sclera normal. Eyelids normal. Ears: External auditory canal normal. Tympanic membranes normal. Throat: Pharynx normal. Uvula midline. Moist mucous membranes. Neck: Normal inspection. Neck supple. Full range of motion. No adenopathy. Thyroid Normal. No meningeal signs. No neck mass noted. Cardiovascular: Normal heart rate and rhythm. Heart sound normal. No murmurs noted. Pulses normal throughout. Respiratory: No respiratory distress. Painless inspiration. Breath sounds normal. No wheezes/rales/rhonchi noted. Chest nontender. No accessory muscle usage noted or decreased air movement noted. Abdomen: Soft and nontender. Bowel sounds normal in all 4 quadrants. No distention noted. No organomegaly noted. No visible injury noted. Back: No costovertebral angle tenderness. Full range of motion noted. Skin: Skin warm and dry. Normal skin color. Normal skin turgor. No rashes/lesions/lacerations noted. Extremities: No lower extremity edema. Extremities exhibit normal range of motion. Extremities nontender. Neuro: Oriented X 3. No motor deficit. No sensory deficit. Reflexes normal. Patient reports dizziness and fatigue. Physical exam (Primary Care) Vital Signs: Last Vital Signs Temp 96.6 F L 09/17/24 15:13 Pulse 83 09/17/24 15:13 BP 132/64 09/17/24 15:13 Pulse Ox 95 09/17/24 15:13 Oxygen Delivery Method Room Air 09/17/24 15:13 Care Plan Goal for BP management: <130/90 at Goal BMI result Body Mass Index 32.4 BMI Assessment/Plan discussion: High BMI High, discussed plan: lifestyle, weight reduction, dietary, physical activity, alcohol moderation and other Tobacco/Smoking Status: Tobacco use Status Tobacco use date assessed 09/17/24 09/17/24 15:19 Patient Tobacco Use Status Never used Tobacco 09/17/24 15:19 e-Cigarette/Vaping Use Never Used 09/17/24 15:19 PHQ-9: PHQ-9 Score PHQ-9: Total score 8 09/17/24 15:19 Depression Screening Interpretation: Positive Depression Screening Follow-up: Existing condition and In treatment Thrive Assessment: Date of Thrive Assessment Date Thrive assessed 06/16/24 09/17/24 15:19 Currently or been in a relationship where the following occur: I choose not to answer Const Other: Appearance: Alert. Oriented X3. No acute distress. Head: Normal external exam. Normocephalic. Atraumatic. Eyes: Pupils are equal, round, and reactive to light. Extraocular movements intact. Conjunctiva and sclera normal. Eyelids normal. Ears: External auditory canal normal. Tympanic membranes normal. Throat: Pharynx normal. Uvula midline. Moist mucous membranes. Neck: Normal inspection. Neck supple. Full range of motion. No adenopathy. Thyroid Normal. No meningeal signs. No neck mass noted. Cardiovascular: Normal heart rate and rhythm. Heart sound normal. No murmurs noted. Pulses normal throughout. Respiratory: No respiratory distress. Painless inspiration. Breath sounds normal. No wheezes/rales/rhonchi noted. Chest nontender. No accessory muscle usage noted or decreased air movement noted. Abdomen: Soft and nontender. Bowel sounds normal in all 4 quadrants. No distention noted. No organomegaly noted. No visible injury noted. Back: No costovertebral angle tenderness. Full range of motion noted. Skin: Skin warm and dry. Normal skin color. Normal skin turgor. No rashes/lesions/lacerations noted. Extremities: No lower extremity edema. Extremities exhibit normal range of motion. Extremities nontender. Neuro: Oriented X 3. No motor deficit. No sensory deficit. Reflexes normal. Patient reports dizziness and fatigue. Although he has a negative Romberg. Negative pronator drift. Negative ozimjl-on-ighc test. Normal steady gait. No focal neuro deficits are noted. Moving all extremities. Results AMB Hemoglobin A1c AMB Hemoglobin A1c 7.1 % Last Edit by SHILPA Everett on 09/17/24 15:24 Results Reviewed Results Reviewed: Laboratory Last Values Hgb A1c (Clinic) 7.1 % (4.0-6.0) H 09/17/24 15:12 - Labs: Negative for troponins. - Imaging: CT scan of the chest was negative for pulmonary embolism. - Viral panel: Negative. Coding Level of Care Code Est Pt Level 4 (35025) Est Pt Prev Care 40-64y(24773) Diagnoses Annual physical exam Z00.00 Dizziness R42 Neck pain M54.2 Fatigue R53.83 Diabetes mellitus E11.9 Primary hypertension I10 Hypertension type: primary hypertension Pure hypercholesterolemia E78.00 Hyperlipidemia type: pure hypercholesterolemia Sleep apnea G47.30 Class 1 obesity with body mass index (BMI) of 32.0 to 32.9 in adult E66.811; Z68.32 Additional Codes PHQ-9 - 76018 - PHQ-9 Billing: Yes ([id number]) ZAHIRA-7 Assessment Billing - ZAHIRA-7 Assessment Tool: ZAHIRA-7 Assessment 55665 ([id number]) Time Spent (min) 50 Assessment & Plan Assessment & Plan (1) Annual physical exam: Code(s): Z00.00 - Encounter for general adult medical examination without abnormal findings Category: Medical (2) Dizziness: Code(s): R42 - Dizziness and giddiness Category: Medical Plan: A brain and neck CT are ordered to rule out causes of vertigo. The patient is advised to take meclizine as needed for symptomatic relief. If persistent, recom mend vestibular therapy to alleviate dizziness. Patient has a normal neuro exam. He is instructed to go to the emergency department is any new symptoms arise or symptoms worsen. Otherwise condition has been stable for the past 2 weeks and has not worsened will continue to monitor. (3) Neck pain: Code(s): M54.2 - Cervicalgia Category: Medical Plan: A CT scan of cervical spine were ordered to rule out any cervical problems causing the patient his neck pain and dizziness. Will also refer to physical therapy. Patient instructed to go to the emergency department if new symptoms arise or symptoms worsen. Otherwise condition has been stable for the past 2 weeks and has not worsened will continue to monitor. (4) Fatigue: Code(s): R53.83 - Other fatigue Category: Medical Plan: Labs along with imaging of brain and cervical spine ordered at this time. Condition has been stable for the past 2 weeks and has not worsened will continue to monitor. (5) Diabetes mellitus: Code(s): E11.9 - Type 2 diabetes mellitus without complications Category: Medical Plan: A1c level go less than 7.0. A1c level today 7.1. Patient to continue metformin 500 mg p.o. b.i.d.. Condition is chronic and stable continue to monitor. (6) Hypertension: Code(s): I10 - Essential (primary) hypertension Category: Medical Qualifiers: Hypertension type: primary hypertension Qualified Code(s): I10 - Essential (primary) hypertension Plan: Blood pressure goal less than 130/90. Blood pressure at goal. Patient to continue lisinopril 10 mg daily. Condition is chronic and stable continue to monitor. (7) Hyperlipidemia: Code(s): E78.5 - Hyperlipidemia, unspecified Category: Medical Qualifiers: Hyperlipidemia type: pure hypercholesterolemia Qualified Code(s): E78.00 - Pure hypercholesterolemia, unspecified Plan: LDL level goal less than 70. Total cholesterol go less than 200. Triglyceride level goal < 150. HDL goal greater than 40. Patient's triglyceride level is 233, total cholesterol 233, LDL 153, HDL 34. Will recommend starting the patient on a statin versus trialing diet and exercise. Condition is chronic and stable continue to monitor. (8) Sleep apnea: Code(s): G47.30 - Sleep apnea, unspecified Category: Medical Plan: Emphasize CPAP machine usage. Assess for continued symptoms affecting sleep quality. Monitor for any further evaluations if necessary. Condition is chronic and stable continue to monitor. (9) Class 1 obesity with body mass index (BMI) of 32.0 to 32.9 in adult: Code(s): E66.811 - Obesity, class 1; Z68.32 - Body mass index [BMI] 32.0-32.9, adult Category: Medical Plan: Patient to improve his diet and exercise regimen. Condition is chronic and stable continue to monitor. Plan Plan Patient was informed and verbally consented to the use of an ambient scribe for clinic note documentation during this visit. 1. Dizziness A brain and neck CT are ordered to rule out causes of vertigo. The patient is advised to take meclizine as needed for symptomatic relief. If persistent, recommend vestibular therapy to alleviate dizziness. 2. Dehydration Advise increased fluid intake and monitor symptoms. Consider further evaluation if dehydration symptoms persist. 3. Diabetes Mellitus Instruct continued diabetic management with a target A1c below 7.0%. Encourage adherence to treatment regimen, including diet and medications. Plan regular glucose monitoring and scheduled follow-up. 4. Sleep Apnea Emphasize CPAP machine usage. Assess for continued symptoms affecting sleep quality. Monitor for any further evaluations if necessary. We discussed differential diagnoses related to the patient?s dizziness, emphasizing the potential for vertigo or other neurological causes. The management plan includes imaging studies of the brain and neck, as well as pharmacological management with meclizine to provide symptom relief. I proposed vestibular therapy to address potential positional vertigo, explaining the mechanism behind crystal repositioning maneuvers. We reviewed his diabetes control, commending the improved A1c, and discussed maintaining rigorous monitoring. I highlighted the importance of sustained CPAP use for sleep apnea management. Consent was obtained to proceed with ordered imaging and follow-up diagnostic studies. Orders: Orders AMB Hemoglobin A1c Today Ban Cartagena PA-C E11.9 - Type 2 diabetes mellitus without complications C Reactive Protein Today Ban Cartagena PA-C Z00.00 - Encounter for general adult medical examination without abnormal findings Liver Panel Today Ban Cartagena PA-C Z00.00 - Encounter for general adult medical examination without abnormal findings Magnesium Today Ban Cartagena PA-C Z00.00 - Encounter for general adult medical examination without abnormal findings Vitamin B12 and Folate Today Ban Cartagena PA-C Z00.00 - Encounter for general adult medical examination without abnormal findings Erythrocyte Sedimentation Rate Today Ban Cartagena PA-C Z00.00 - Encounter for general adult medical examination without abnormal findings Lipid Panel Today Ban Cartagena PA-C Z00.00 - Encounter for general adult medical examination without abnormal findings CT head/brain wo IV con Today Ban Cartagena PA-C M54.2 - Cervicalgia, R42 - Dizziness and giddiness, R53.83 - Other fatigue CT cervical spine wo IV con Today Ban Cartagena PA-C H81.09 - Meniere's disease, unspecified ear, M54.2 - Cervicalgia, R53.83 - Other fatigue Complete Blood Count Auto Diff Today Ban Cartagena PA-C Z00.00 - Encounter for general adult medical examination without abnormal findings Comprehensive Met. Panel Today Ban Cartagena PA-C Z00.00 - Encounter for general adult medical examination without abnormal findings Vitamin D 25-OH Total Today Ban Cartagena PA-C Z00.00 - Encounter for general adult medical examination without abnormal findings TSH reflex Free T4 Today Ban Cartagena PA-C Z00.00 - Encounter for general adult medical examination without abnormal findings PSA,Total (Free>4and<10) Today Ban Cartagena PA-C Z00.00 - Encounter for general adult medical examination without abnormal findings IRON PROFILE Today Ban Cartagena PA-C D64.9 - Anemia, unspecified Ferritin Today Ban Cartagena PA-C D64.9 - Anemia, unspecified Microalbumin, Random (w Creat) Today Ban Cartagena PA-C E11.9 - Type 2 diabetes mellitus without complications PT Evaluation and Treatment Today Ban Cartagena PA-C H81.09 - Meniere's disease, unspecified ear, M54.2 - Cervicalgia Referrals Gastroenterology Referral Ban Cartagena PA-C Z12.11 - Encounter for screening for malignant neoplasm of colon Medications: Changed From meclizine 25 mg PO BID PRN 30 tabs 0RF dizziness To meclizine 25 mg PO Q6H PRN 30 tabs 1RF dizziness Ban Cartagena PA-C Refilled lisinopril 10 mg PO DAILY 90 tabs 1RF Ban Cartagena PA-C Resumed metformin 500 mg PO BID 180 tabs 1RF Avel Vee MD Patient Instructions: - Take meclizine every 6 hours if dizziness occurs. - Increase water intake to address dehydration. - Continue following the diabetes management plan, including blood glucose checks. - Use the CPAP machine consistently for sleep apnea. - Schedule CT scans as ordered and attend follow-up appointments. - Follow up in a month if symptoms persist.
[2024-09-17 15:13] VITALS: BP 132/64; PULSE 83; TEMP 35.9; O2SAT 95; BMI 32.4
--- OUTSIDE RECORDS SUMMARY | 2024-09-17 15:33 | XMS_ITS | Clinical Summary ---
Author Organization [facility] Address [address] [place] [address] Care Team Providers Care Emu Farmer Name Role Phone Unavailable Primary Care Provider [...] 2009 Imm-Zoster, Recombinant (1 of 2) 2014 [id number] (3 2023- season) 2024 021, 07/26/2020 Imm-Influenza (#1) 2024 04/05/2020, 03/29/2019 Alcohol and Drug Screen 05/13/2024 Depression Annual Screen 05/13/2024 Insurance [facility] Member Subscriber Plan / Payer (Ef fective 2020-Present) Name:MonteiroRamesh Relation to Subscriber:Self Name:Monteiro, Jose Payer ID:[id number] Type:Indemnity Address: [facility] [id number] [place] [address]
== END 2024-09-17 15:58 | disposition home or self-care (01) ==
LOC: HO.HMCH 15:00
PROVIDERS: PCP Internal Medicine; Visit Provider Physician Assistant Medical
DX: Z00.00 Encounter for general adult medical examination without abnormal findings (principal); E11.9 Type 2 diabetes mellitus without complications; E66.811 Obesity, class 1; R42 Dizziness and giddiness; Z68.32 Body mass index [BMI] 32.0-32.9, adult; M54.2 Cervicalgia; R53.83 Other fatigue; I10 Essential (primary) hypertension; E78.00 Pure hypercholesterolemia, unspecified; G47.30 Sleep apnea, unspecified

== ENCOUNTER → 2024-09-17 15:00 | Outpatient (BNVA) | payer BC, SELFPAY | PROVIDERS: PCP Internal Medicine; Visit Provider Physician Assistant Medical | DX: Z00.00 Encounter for general adult medical examination without abnormal findings (principal); R42 Dizziness and giddiness; M54.2 Cervicalgia; R53.83 Other fatigue; E11.9 Type 2 diabetes mellitus without complications; I10 Essential (primary) hypertension; E78.00 Pure hypercholesterolemia, unspecified; G47.30 Sleep apnea, unspecified; E66.811 Obesity, class 1; Z68.32 Body mass index [BMI] 32.0-32.9, adult; Z79.84 Long term (current) use of oral hypoglycemic drugs; Z79.899 Other long term (current) drug therapy | CPT/HCPCS: 83036; 96127 ==

== ENCOUNTER 2024-09-19 08:01 | Outpatient (REF) | payer BC, SELFPAY ==
[2024-09-19 08:12] LABS: MANUAL DIFF FLAG NO
[2024-09-19 09:10] LABS: Basophils Percent Auto 0.5 % (0-2); Eosinophils Absolute Auto 0.2 X10*3/uL (0.0-0.4); Hematocrit 42.4 % (42.0-52.0); Hemoglobin 14.5 g/dl (14.0-18.0); Imm Gran Abs Auto 0.02 X10*3/uL (0.00-0.03); Imm Gran Pct Auto 0.2 % (0.0-0.4); Lymphocytes Absolute Auto 3.1 X10*3/uL (1.2-4.9); Lymphocytes Percent Auto 38.2 % (20-40); Mean Corpuscular HGB Conc 34.2 g/dl (31.0-36.0); Mean Corpuscular Hemoglobin 30.1 pg (27.0-33.0); Mean Platelet Volume 9.7 fL (9.4-12.4); Monocytes Absolute Auto 0.8 X10*3/uL (0.1-1.2); Monocytes Percent Auto 9.7 % (2-11); Neutrophils Percent Auto 49.4 % (45-73); Platelet Count 324 X10*3/uL (160-400); Red Blood Count 4.82 X10*6/uL (4.60-5.80); Red Cell Distribution Width 12.2 % (11.0-16.0)
[2024-09-19 09:50] LABS: Erythrocyte Sedimentation Rate 10 MM/HR (0-15)
[2024-09-19 09:54] LABS: Alanine Aminotransferase 50 U/L (0-40); Albumin Level 4.4 g/dL (3.5-5.0); Alkaline Phosphatase 59 U/L (39-117); Anion Gap 15 (12-20); Aspartate Amino Transferase 24 U/L (5-37); Bilirubin Direct 0.2 mg/dL (0.0-0.5); Bilirubin Total 0.7 mg/dL (0.0-1.0); Blood Urea Nitrogen 16 mg/dL (9-16); C Reactive Protein 0.32 mg/dL (< or = 0.50); Calcium 9.6 mg/dL (8.4-10.2); Carbon Dioxide 24 mmol/L (22-29); Chloride 104 mmol/L (96-108); Cholesterol 241 mg/dL (<200); Estimated Glomerular Filt Rate > 60; Glucose Random 132 mg/dL (60-115); HDL Cholesterol 34 mg/dL (>40); Iron 143 mcg/dL (45-160); LDL Cholesterol Calculated 169 mg/dL (<100); Magnesium 2.3 mg/dL (1.6-2.6); Percent Iron Saturation 44 % (15-50); Potassium 4.2 mmol/L (3.3-5.1); Sodium 139 mmol/L (135-145); Total Iron Binding Capacity 327 mcg/dL (228-428); Total Protein 7.7 g/dL (6.5-8.0); Triglycerides 193 mg/dL (<150); Unsaturated Iron Binding 184 ug/dL
[2024-09-19 10:05] LABS: PSA,Total (Free>4and<10) 0.22 ng/mL (0.00-4.00)
[2024-09-19 10:06] LABS: Creatinine Urine 126.23 mg/dL; Microalbum/Creatinine Ratio Ur 6.3 ug/mg cr (<30)
[2024-09-19 10:16] LABS: Ferritin 303 ng/mL (20-250); TSH reflex Free T4 1.44 uIU/mL (0.32-4.0); Vitamin D 25-OH Total 64.7 ng/mL (>30)
[2024-09-19 10:21] LABS: Folate 15.4 ng/mL (> or = 4.0); Vitamin B12 876 pg/mL (200-900)
== END 2024-09-19 08:02 | disposition home or self-care (01) ==
LOC: HO.LAB 08:01
PROVIDERS: PCP Internal Medicine; Visit Provider Physician Assistant Medical
DX: Z00.00 Encounter for general adult medical examination without abnormal findings (principal); D64.9 Anemia, unspecified; E11.9 Type 2 diabetes mellitus without complications; Z12.5 Encounter for screening for malignant neoplasm of prostate
CPT/HCPCS: 36415; 80053; 80061; 82043; 82248; 82306; 82570; 82607; 82728; 82746; 83540; 83735; 84153; 84443; 85025; 85652; 86140

== ENCOUNTER 2024-10-06 10:38 | Outpatient (REF) | payer BC, SELFPAY ==
[2024-10-06 11:02] LABS: MANUAL DIFF FLAG NO
[2024-10-06 11:06] LABS: Basophils Percent Auto 0.3 % (0-2); Eosinophils Percent Auto 0.3 % (0-4); Hemoglobin 14.7 g/dl (14.0-18.0); Imm Gran Abs Auto 0.01 X10*3/uL (0.00-0.03); Imm Gran Pct Auto 0.1 % (0.0-0.4); Lymphocytes Absolute Auto 2.4 X10*3/uL (1.2-4.9); Lymphocytes Percent Auto 26.5 % (20-40); Mean Corpuscular Hemoglobin 30.1 pg (27.0-33.0); Mean Corpuscular Volume 85.9 fL (80.0-98.0); Mean Platelet Volume 9.6 fL (9.4-12.4); Monocytes Absolute Auto 0.9 X10*3/uL (0.1-1.2); Monocytes Percent Auto 9.9 % (2-11); Neutrophils Absolute Auto 5.6 x10*3/uL (2.0-8.3); Neutrophils Percent Auto 62.9 % (45-73); Platelet Count 325 X10*3/uL (160-400); Red Blood Count 4.89 X10*6/uL (4.60-5.80); White Blood Count 8.9 X10*3/uL (4.8-10.8)
[2024-10-06 11:23] LABS: Alanine Aminotransferase 52 U/L (0-40); Alkaline Phosphatase 57 U/L (39-117); Anion Gap 13 (12-20); Aspartate Amino Transferase 25 U/L (5-37); Bilirubin Total 0.7 mg/dL (0.0-1.0); Blood Urea Nitrogen 15 mg/dL (9-16); Calcium 9.7 mg/dL (8.4-10.2); Carbon Dioxide 27 mmol/L (22-29); Chloride 102 mmol/L (96-108); Estimated Glomerular Filt Rate > 60; Glucose Random 108 mg/dL (60-115); Magnesium 2.5 mg/dL (1.6-2.6); Potassium 4.5 mmol/L (3.3-5.1); Sodium 137 mmol/L (135-145); Total Protein 8.1 g/dL (6.5-8.0)
--- OUTSIDE RECORDS SUMMARY | 2024-10-06 11:24 | XMS_ITS | Clinical Summary ---
Author Organization [facility] Address [address] [place] [address] Care Team Providers Care Soundscriber Mechanic Name Role Phone Unavailable Primary Care Provider [...] (#1) 1982 Imm-DTaP/Tdap/Td (1 - Tdap) 09/28/1983 CT Colonography 2009 Colonoscopy 2009 Colorectal Cancer Screening 2009 FIT/gFOBT 2009 Fecal DNA 2009 Flexible Sigmoidoscopy 2009 Imm-Zoster, Recombinant (1 o f 2) 2014 [id number] ( season) 2024 08/23/2020, 07/26/2020 Imm-Influenza (#1) 2024 04/05/2020, 03/29/2019 Alcohol and Drug Screen 05/13/2024 Depression Annual Screen 05/13/2024 Imm-Hepatitis B Aged Out No longer el igible based on patient's age to complete this topic Insurance [employer] [facility] Member Subscriber Plan / Payer (Ef fective 2020-Present) Name:MonteiroRamesh Relation to Subscriber:Self Name:Cayetano Ramesh Payer ID:[id number] Type:Indemnity Address: [facility] [id number] [place] [address]
[2024-10-06 14:03] LABS: Leukocytes Stool Qualitative NEGATIVE (NEGATIVE)
[2024-10-15 02:03] LABS: Chymotrypsin, Stool 3.2 U/g (2.3-51.4)
== END 2024-10-06 10:39 | disposition home or self-care (01) ==
LOC: HO.LAB 10:38
PROVIDERS: PCP Internal Medicine; Visit Provider Physician Assistant Medical
DX: Z00.00 Encounter for general adult medical examination without abnormal findings (principal); R11.10 Vomiting, unspecified; R10.9 Unspecified abdominal pain
CPT/HCPCS: 36415; 80053; 83735; 85025; 87338; 89055

== ENCOUNTER 2024-10-20 11:45 | Day surgery (SDC) | payer BC, SELFPAY ==
--- OUTSIDE RECORDS SUMMARY | 2024-10-16 09:56 | XMS_ITS | Clinical Summary ---
Author Organization [facility] Address [address] [place] [address] Care Team Providers Care Testing Lead Name Role Phone Unavailable Primary Care Provider [...] Imm-Zoster, Recombinant (1 o f 2) 2014 [id number] ( season) 2024 08/23/2020, 07/26/2020 Imm-Influenza (#1) 2024 04/05/2020, 03/29/2019 Alcohol and Drug Screen 05/13/2024 Depression Annual Screen 05/13/2024 Imm-Hepatitis B Aged Out No longer el igible based on patient's age to complete this topic Insurance [employer] [facility]
--- NOTE | 2024-10-19 09:29 | HO.ANESPROP2 ---
Documented by User: Paradise Steinberg NP 10/19/24 09:31 HPI - Anesthesia Eval Consult details Narrative: 59yo M for Upper Endoscopy and Colonoscopy [facility] Active Problems Active Problems: All Active Problems Nausea (Acute) Elevated ferritin level (Acute) Abdominal pain (Acute) Class 1 obesity with body mass index (BMI) of 32.0 to 32.9 in adult (Acute) Sleep apnea (Acute) Meniere disease (Acute) Dizziness (Acute) Fatigue (Acute) Neck pain (Acute) Trigger finger, left ring finger (Acute) Right shoulder pain (Acute) Rhinitis, allergic (Acute) Acute effusion of left ear (Acute) Trigger finger of all digits of left hand (Acute) Diabetes mellitus (Acute) Dermatitis associated with moisture (Acute) Hypertension (Acute) Hyperlipidemia (Acute) Annual physical exam (Acute) Obesity (Acute) Cracked skin on feet (Acute) Past Medical History Medical History Nausea Elevated ferritin level Abdominal pain Class 1 obesity with body mass index (BMI) of 32.0 to 32.9 in adult Sleep apnea Dizziness Meniere disease Fatigue Neck pain Diabetes mellitus Hyperlipidemia Hypertension Dermatitis associated with moisture Surgical History Surgical History No pertinent past surgical history Social History Social History Household Members: Significant Other Housing: House Alcohol intake: never Patient Tobacco Use Status: Never used Tobacco e-Cigarette/Vaping Use: Never Used Second Hand Smoke Exposure: No Advance Directives: No Advance Directives Information Provided: Yes service: No Current occupational status: retired Cognitive needs: No Hearing needs: No Vision needs: Yes (GLasses) Meds Allergies Allergy/AdvReac Type Severity Reaction Status Date / Time No Known Allergies Allergy Verified 09/17/24 15:29 Home Medications ?Medication ?Instructions ?Recorded ?Confirmed ?Last Taken ?Type ascorbic acid (vitamin C) 250 mg 250 mg PO DAILY 06/11/24 09/17/24 06/11/24 History tablet (Vitamin C) multivitamin 1 tab PO DAILY 06/11/24 09/17/24 06/11/24 History vitamin B complex 1 tab PO DAILY 06/11/24 09/17/24 06/11/24 History vitamin E 268 mg (400 unit) capsule 268 mg PO DAILY 06/11/24 09/17/24 06/11/24 History Exam Pertinent Lab Results Pertinent Lab Results: Laboratory Tests 10/06/24 11:00 WBC 8.9 Hgb 14.7 Hct 42.0 Plt Count 325 Sodium 137 Potassium 4.5 Chloride 102 Carbon Dioxide 27 BUN 15 Creatinine 0.90 Narrative Narrative: EKG 08/2024 Vent. Rate : 70 BPM Atrial Rate : 70 BPM P-R Int : 160 ms QRS Dur : 88 ms QT Int : 382 ms P-R-T Axes : 58 46 55 degrees QTcB Int : 412 ms Normal sinus rhythm cannot exclude old Septal infarct , age undetermined Abnormal ECG When compared with ECG of 11-Jun-2024 09:01, No significant change was found Assessment and Plan Assessment Anesthesia Assessment: Chart Reviewed Documented by User: Fiona Kaur MD 10/20/24 12:02 [facility] Past Medical History Medical History Nausea Elevated ferritin level Abdominal pain Class 1 obesity with body mass index (BMI) of 32.0 to 32.9 in adult Sleep apnea Dizziness Meniere disease Fatigue Neck pain Diabetes mellitus Hyperlipidemia Hypertension Dermatitis associated with moisture Family History Family history of problems with anesthesia: No Surgical History Surgical History No pertinent past surgical history History of Problems with Anesthesia: No Social History Social History Household Members: Significant Other Housing: House Alcohol intake: never Patient Tobacco Use Status: Never used Tobacco e-Cigarette/Vaping Use: Never Used Second Hand Smoke Exposure: No Advance Directives: No Advance Directives Information Provided: Yes service: No Current occupational status: retired Cognitive needs: No Hearing needs: No Vision needs: Yes (GLasses) Meds Allergies Allergy/AdvReac Type Severity Reaction Status Date / Time No Known Allergies Allergy Verified 09/17/24 15:29 Home Medications ?Medication ?Instructions ?Recorded ?Confirmed ?Last Taken ?Type ascorbic acid (vitamin C) 250 mg 250 mg PO DAILY 06/11/24 09/17/24 06/11/24 History tablet (Vitamin C) multivitamin 1 tab PO DAILY 06/11/24 09/17/24 06/11/24 History vitamin B complex 1 tab PO DAILY 06/11/24 09/17/24 06/11/24 History vitamin E 268 mg (400 unit) capsule 268 mg PO DAILY 06/11/24 09/17/24 06/11/24 History Exam Airway Mallampati Class: II TM Dist: >3cm Neck ROM: Full Heart: rrr Lungs: cta Assessment and Plan Assessment Anesthesia Assessment: Anesthesia Plan Discussed Final Anesthetic Review Family History of Problems with Anesthesia: No History of Problems with Anesthesia: No NPO: Yes ASA Class: III Final Preanesthetic Review: No Changes in Pt Med Stat, Meds/Allgs Chart Reviewed, Consent Obtained/Reviewed and Anes Risks/Benef Reviewed Patient Risk: Intermediate Procedure Risk: Low Anesthetic Plan Anesthetic Plan: MAC: Disposition: Standard PACU
[2024-10-20 11:56] VITALS: BMI 32.3
[2024-10-20 11:57] VITALS: BMI 32.3
--- NOTE | 2024-10-20 12:11 | MHC.SHP ---
Pre-Procedural Eval Section A - 24 Hr Update-Section A only Date of Service: 10/20/24 The patient is an INPATIENT: No Changes since office visit: No Cold of Flu in the past 2 weeks, No New Medical Problems, No Changes in Medication and No Patient answered all questions The patient has been examined within 24 hours of the surgical procedure. The History & Physical has been completed within 30 days and I have reviewed it.: Yes Section B - Complete if H&P > 30 days Chief Complaint: Encounter for screening for malignant neoplasm of Allergies: Allergies Allergy/AdvReac Type Severity Reaction Status Date / Time No Known Allergies Allergy Verified 09/17/24 15:29 Plan I have reviewed the history and physical and performed a pertinent physical examination on my patient. No changes have occurred unless specified. Time Spent With Patient Time: Total time managing care of this patient today ____ minutes.
[2024-10-20 12:18] VITALS: BP 156/78; PULSE 74; RESP 17; TEMP 36.6; O2SAT 97
[2024-10-20 12:26] LABS: Glucose, Whole Blood 102 mg/dL (60-115)
[2024-10-20] MEDS: Lactated Ringers 1,000 ML 100 ML IVCONT (12:32)
--- NOTE | 2024-10-20 12:52 | PC.NURSE ---
1238-fleet enema given on left side lateral. hans well. output was dark yellow/brown output. unable to see down through the toilet. md sinclair aware ok to proceed. fluids wide open. increased dizziness with movement. patients baseline since may per patient.
[2024-10-20 13:33] VITALS: BP 111/56; PULSE 86; RESP 18; TEMP 36.1; O2SAT 100
[2024-10-20 13:45] VITALS: BP 147/69; PULSE 79; RESP 16; O2SAT 95
[2024-10-20 13:59] VITALS: BP 156/78; PULSE 76; RESP 16; TEMP 36.1; O2SAT 96
--- NOTE | 2024-10-20 14:05 | OP_ITS ---
DATE OF SERVICE: 10/20/2024 SURGEON: Jesse Reyes MD INDICATIONS: 1. Gastroesophageal reflux disease. 2. Colon cancer screening. PREOPERATIVE DIAGNOSIS: POSTOPERATIVE DIAGNOSIS: PROCEDURE PERFORMED: Upper endoscopy with biopsy, colonoscopy to the terminal ileum. ESTIMATED BLOOD LOSS: COMPLICATIONS: ANESTHESIA: Monitored anesthesia care. ASSISTANTS: SPECIMENS: DESCRIPTION OF PROCEDURE: A history and physical performed. The risks and benefits of the procedure were explained to the patient. Informed consent was obtained. The patient was placed in the left lateral decubitus position. The Olympus video gastroscope was introduced into the esophagus, stomach, and duodenum. Examination was performed. The scope was removed. He was repositioned for colonoscopy. A digital rectal exam was performed and was found to be normal. The Olympus pediatric video colonoscope was introduced into the rectum and advanced to the cecum. The cecum was identified by transillumination, palpation, and identification of ileocecal valve. Examination was performed. The scope was removed. He tolerated both procedures well and was returned to recovery area in stable condition. FINDINGS: 1. Upper endoscopy: a. Esophagus: The esophagus was normal. There was an irregular EG junction. This was biopsied. There was no esophagitis. b. Stomach: The stomach showed no evidence of masses or ulcers. There were multiple benign-appearing less than 5 mm polyps in the body and fundus consistent with fundic gland polyps. Antral biopsies were obtained. c. Duodenum: The bulb and 2nd portion were normal. 2. Colonoscopy: The terminal ileum was normal. The visualized colonic mucosa was normal. There was a fair amount of undigested food and liquid stool, which limited the sensitivity examination, particularly in the distal transverse colon, descending colon, and sigmoid colon. This was washed and suctioned as best possible, but small polyps could have been missed. Retroflexed examination showed moderate-sized internal hemorrhoids. IMPRESSION: 1. Gastroesophageal reflux disease. 2. Normal colonoscopy. RECOMMENDATIONS: 1. Follow up the biopsy results. 2. Screening colonoscopy was recommended every 10 years for average risk individuals, but given the limitations of today's exam, short-term followup with a 2-day prep could be considered. This would be discussed with the patient after he is awake in the recovery room. . MD CHA Sewell/KLARISSA / [phone]
== END 2024-10-20 15:08 | disposition home or self-care (01) ==
PROVIDERS: PCP Internal Medicine; Visit Provider Internal Medicine Gastroenterology
PROC: (CPT 45378; principal; 2024-10-20 13:30)
DX: Z12.11 Encounter for screening for malignant neoplasm of colon (principal); K64.8 Other hemorrhoids; K21.9 Gastro-esophageal reflux disease without esophagitis; K31.89 Other diseases of stomach and duodenum; K31.7 Polyp of stomach and duodenum; K76.0 Fatty (change of) liver, not elsewhere classified; R63.4 Abnormal weight loss; Z68.33 Body mass index [BMI] 33.0-33.9, adult; I10 Essential (primary) hypertension; R51.9 Headache, unspecified; G47.30 Sleep apnea, unspecified; E78.00 Pure hypercholesterolemia, unspecified; E11.9 Type 2 diabetes mellitus without complications; Z79.84 Long term (current) use of oral hypoglycemic drugs; Z79.899 Other long term (current) drug therapy
CPT/HCPCS: 45378; 43239; 82947; 88305; 88313; 88342; J1200; J2704

== ENCOUNTER 2024-10-26 07:53 | Emergency (ER) | payer BC, SELFPAY ==
--- NOTE | ~2024-10-26 | CT_ITS ---
EXAMINATION: CT ABDOMEN AND PELVIS WITH CONTRAST CLINICAL INFORMATION: Abdominal pain. DLP: 600 mGY*cm COMPARISON: May 2018 TECHNIQUE: Multidetector volumetric images were obtained from the superior aspect of the liver through the pubic symphysis following administration 85 mL of Omnipaque 350 intravenous contrast. Sagittal and coronal reformatted images were obtained on the technologist's workstation. Oral contrast: No This CT examination was performed using dose optimization techniques as appropriate, variously including the following: *Automated exposure control *Adjustment of mA and/or kV according to patient size (this includes techniques or standardized protocols for targeted exams where dose is matched to indication/reason for exam; i.e. extremities or head) *Use of iterative reconstruction technique FINDINGS: LUNG BASES: The visualized lung bases are unremarkable. LIVER, GALLBLADDER, AND BILIARY TREE: Mild fatty changes are present in the liver. The gallbladder is unremarkable with no evidence of radiopaque gallstones, gallbladder wall thickening, or obvious pericholecystic inflammatory changes. PANCREAS: Unremarkable. SPLEEN: Unremarkable. ADRENAL GLANDS: There is mild nonspecific nodularity of the left adrenal gland. Right adrenal gland is unremarkable. KIDNEYS AND URETERS: There is no hydronephrosis. Ureters appear mildly prominent. However, no stones are identified. There is mild perinephric stranding. BLADDER: The bladder is grossly distended without wall thickening or mass. GASTROINTESTINAL TRACT: The small and large bowel are unremarkable. The appendix is unremarkable. ABDOMINAL WALL: Small fat-containing umbilical hernia is again noted. LYMPH NODES: Normal. VASCULAR: Moderate atherosclerotic calcific lesions are present in the abdominal aorta and iliac arteries PELVIC VISCERA: Unremarkable. OSSEOUS STRUCTURES: Multilevel degenerative disc disease and facet osteoarthritis has progressed since the prior examination with increasing disc space narrowing, vacuum phenomena, endplate osteophytes, sclerosis, and facet hypertrophy. There are also mild degenerative changes in the hip joint with acetabular roof osteophytes. CT/CT abdomen pelvis w IV con IMPRESSION: Again noted is a grossly distended bladder. There is also mild distention of both ureters, but no obstructing stone or mass was evident. Mild diffuse fatty changes are present in the liver. Moderate to severe degenerative disc disease and facet arthropathy has increased since the prior examination. Fleischner guidelines were followed. Electronically signed by: Dimitri Peña MD 10/26/2024 11:49 AM EDT
[2024-10-26 08:03] VITALS: BP 151/73; PULSE 69; RESP 18; TEMP 36.7; O2SAT 96; BMI 31.4
[2024-10-26 08:29] LABS: MANUAL DIFF FLAG NO
[2024-10-26 08:30] LABS: Basophils Percent Auto 0.5 % (0-2); Eosinophils Absolute Auto 0.1 X10*3/uL (0.0-0.4); Eosinophils Percent Auto 0.6 % (0-4); Hematocrit 42.6 % (42.0-52.0); Hemoglobin 15.1 g/dl (14.0-18.0); Imm Gran Abs Auto 0.01 X10*3/uL (0.00-0.03); Imm Gran Pct Auto 0.1 % (0.0-0.4); Lymphocytes Absolute Auto 1.7 X10*3/uL (1.2-4.9); Lymphocytes Percent Auto 20.9 % (20-40); Mean Corpuscular HGB Conc 35.4 g/dl (31.0-36.0); Mean Corpuscular Hemoglobin 30.5 pg (27.0-33.0); Mean Corpuscular Volume 86.1 fL (80.0-98.0); Mean Platelet Volume 9.4 fL (9.4-12.4); Monocytes Absolute Auto 0.8 X10*3/uL (0.1-1.2); Neutrophils Absolute Auto 5.4 x10*3/uL (2.0-8.3); Neutrophils Percent Auto 67.9 % (45-73); Platelet Count 301 X10*3/uL (160-400); Red Blood Count 4.95 X10*6/uL (4.60-5.80); Red Cell Distribution Width 12.3 % (11.0-16.0); White Blood Count 7.9 X10*3/uL (4.8-10.8)
[2024-10-26 08:43] LABS: Alanine Aminotransferase 43 U/L (0-40); Albumin Level 4.6 g/dL (3.5-5.0); Alkaline Phosphatase 60 U/L (39-117); Anion Gap 13 (12-20); Aspartate Amino Transferase 26 U/L (5-37); Bilirubin Total 0.8 mg/dL (0.0-1.0); Blood Urea Nitrogen 12 mg/dL (9-16); Calcium 9.8 mg/dL (8.4-10.2); Carbon Dioxide 26 mmol/L (22-29); Chloride 103 mmol/L (96-108); Creatinine Clr Calc Pharmacy 79.4; Estimated Glomerular Filt Rate > 60; Glucose Random 101 mg/dL (60-115); Lipase 35 U/L (8-78); Potassium 4.4 mmol/L (3.3-5.1); Sodium 138 mmol/L (135-145); Total Protein 7.5 g/dL (6.5-8.0)
--- OUTSIDE RECORDS SUMMARY | 2024-10-26 08:58 | XMS_ITS | Clinical Summary ---
Author Organization [facility] Address [address] [place] [address] Phone Care Team Providers Care Market Survey Representative Name Role Phone Avel Vee MD Primary Care Provider [phone]- [phone] Allergies No known active allergies Medications sucralfate (CARAFATE) 100 mg/mL suspension Take 10 mL (1 g total) by mouth 4 (four) times a day (before meals and nightly). 1200 mL 5 10/29/19 25 Active sucralfate (CARAFATE) 100 mg/mL suspension Take 10 mL (1 g total) by mouth 4 (four) times a day (before meals and nightly). 1200 mL 5 09/29/19 25 Discontinued Encounters Date Type Department Care Team Description 2024 12:48 PM EDT - 2024 9:09 PM EDT Emergency [facility] Emergency [address] [place] [address] Justin Ovalle MD Gastritis without bleeding, unspecified chronicity, unspecified gastritis type (Primary Dx) Discharge Disposition: Home or Self Care from Last 3 Months Medical History Medical History Date Comments Diabetes mellitus (CMS/HCC V24, CMS/HCC V28) Hypertension Hyperlipidemia Social History Tobacco Use Types Packs/Day Years Used Date Smoking Tobacco: Never Smokeless Tobacco: Never Tobacco Cessation:Counseling Given: Not Answered Sex and Gender Information Value Date Recorded Sex Assigned at Not on file Legal Sex Male 11:59 AM EDT Gender Identity Not on file Sexual Orientation Not on file Obstetrics History Last Filed Vital Signs Vital Sign Reading Time Taken Comments Blood Pressure 170/83 2024 9:08 PM EDT Pulse 66 2024 9:08 PM EDT Temperature 36.9 ??C (98.4 ??F) 2024 9:08 PM ED T Respiratory Rate 18 2024 9:08 PM EDT Oxygen Saturation 99% 2024 9:08 PM EDT Inhaled Oxygen Concentration - - Weight 96.6 kg (213 lb) 2024 12:08 PM EDT Height 162.6 cm (5' 4 ) 2024 12:08 PM EDT Body Mass Index 36.56 2024 12:08 PM EDT Plan of Treatment Health Maintenance Due Date Last Done Comments DTaP,Tdap,and Td Vaccines (1 - Tdap) 09/28/1983 Pneumococcal Vaccine: 50+ Years (1 of 1 - PCV) 2014 Zoster Vaccines (1 of 2) 2014 COVID-19 Vaccine (4 - season) 2024 05/16/2021, 08/23/2020, 07/26/2020 Cholesterol Screening (Lipid Panel) 2024 Colorectal Cancer Screening: Colonoscopy 2024 Depression Screening 2024 HIV Screening 2024 Hepatitis C Screening 2024 Social Influencers of Health Screening 2024 RSV Immunization Adult Patients (1 - 1-dose 75+ series) 09/28/2039 Influenza Vaccine Completed 06/12/2024, , 03/29/2019, Additional history exists HIB Vaccines Aged Out No longer eligi ble based on patient's age to complete this topic HPV Vaccines Aged Out No longer eligi ble based on patient's age to complete this topic Hepatitis A Vaccines Aged Out No long er eligible based on patient's age to complete this topic Hepatitis B Vaccines Aged Out No long er eligible based on patient's age to complete this topic IPV Vaccines Aged Out No longer eligi ble based on patient's age to complete this topic MMR Vaccines Aged Out No longer eligi ble based on patient's age to complete this topic Meningococcal ACWY Vaccine Aged Out N o longer eligible based on patient's age to complete this topic Meningococcal B Vaccine Aged Out No l onger eligible based on patient's age to complete this topic Pneumococcal Vaccine: Pediatrics (0 to 5 Years) and At-Risk Patients (6 to 64 Years) Aged Out No longer eligible based on patient's age to complete this topic RSV Immunization Patients Under 20 months Aged Out No longer eligible based on patient's age to complete this topic Varicella Vaccines Aged Out No longer eligible based on patient's age to complete this topic Procedures Procedure Name Priority Date/Time Associated Diagnosis Comments ECG ANNOTATED 09/29/2024 CT ABDOMEN PELVIS W CONTRAST STAT 2024 6:00 PM EDT US ABDOMEN LIMITED STAT 2024 3: 07 PM EDT XR CHEST 2 VIEWS STAT 2024 2:47 PM EDT HEPATIC FUNCTION PANEL STAT Add-on 2024 12:22 PM EDT CBC WITH AUTO DIFFERENTIAL STAT 2024 12:22 PM EDT MAGNESIUM STAT 2024 12:22 PM EDT BASIC METABOLIC PANEL STAT 2024 12:22 PM EDT CBC AND DIFFERENTIAL STAT 2024 12:22 PM EDT ECG 12-LEAD STAT 2024 12:16 PM EDT from Last 3 Months Results * ECG-Annotated (09/29/2024) us Provider Onbase MD ECG ORDERABLES Final Result * CT Abdomen Pelvis w Contrast (2024 6:00 PM EDT) Anatomical Region Laterality Modality Body Computed Tomogra phy 2024 6:20 PM EDT Impressions 2024 6:20 PM EDT Impression: 1. Significantly distended urinary bladder as described above. 2. No other acute abnormality or CT explanation for abdominal pain. This document has been electronically signed by: Paras Joiner MD on 2024 18:20:51 Narrative 2024 6:20 PM EDT INDICATION: Abdominal pain, acute, no prior medical history Exam: Contrast-enhanced CT abdomen and pelvis with multiplanar reformats. Comparison: None. Findings: CT abdomen: Lung bases reveal minimal atelectasis. Liver reveals mild diffuse hypoattenuation/steatosis. No focal lesions or ductal dilatation. Gallbladder is unremarkable. Spleen appears unremarkable. Pancreas and adrenal glands appear unremarkable. Kidneys appear unremarkable bilaterally. No free intraperitoneal fluid or retroperitoneal masses or adenopathy. Abdominal aorta is normal caliber with [id number] calcific athero sclerosis. Bowel loops reveal no abnormal wall thickening or distention. The appendix is not identified, however there is no secondary CT evidence of appendicitis. No significant diverticular disease. CT pelvis: Urinary bladder is significantly distended measuring up to 19.3 cm craniocaudad dimension. No gross bladder filling defects. Prostate gland measures 5.4 cm transverse dimension. No pelvic masses, fluid or adenopathy. Osseous structures reveal no destructive osseous lesions. Procedure Note Paras Joiner MD - 2024 INDICATION: Abdominal pain, acute, no prior medical history Exam: Contrast-enhanced CT abdomen and pelvis with multiplanarreformats. Comparison: None. Findings: CT abdomen: Lung bases reveal minimal atelectasis. Liver reveals mild diffuse hypoattenuation/steatosis. No focal lesions or ductaldilatation. Gallbladder is unremarkable. Spleen appears unremarkable. Pancreas and adrenal glands appear unremarkable. Kidneys appear unremarkable bilaterally. No free intraperitoneal fluid or retroperitoneal masses or adenopathy. Abdominal aorta is normal caliber with [id number] calcific athero sclerosis. Bowel loops reveal no abnormal wall thickening or distention. Theappendix is not identified, however there is no secondary CT evidence of appendicitis. No significant diverticular disease. CT pelvis: Urinary bladder is significantly distended measuring up to19.3 cm craniocaudad dimension. No gross bladder filling defects. Prostate gland measures 5.4 cm transverse dimension. No pelvic masses, fluid or adenopathy. Osseous structures reveal no destructive osseous lesions. IMPRESSION: Impression: 1. Significantly distended urinary bladder as described above. 2. No other acute abnormality or CT explanation for abdominal pain. This document has been electronically signed by: Paras Joiner MD on 2024 18:20:51 us Justin Ovalle MD IMG CT PROCEDURES Final Result * US Abdomen Limited (2024 3:07 PM EDT) Anatomical Region Laterality Modality Body Ultrasound 2024 3:39 PM EDT Impressions 2024 3:43 PM EDT Limited study. Echogenic sound attenuating liver which could be related to fatty change and/or fibrosis. No ascites, cholelithiasis or biliary dilation -------- FINAL REPORT -------- Dictated By: Melvin Orellana Dictated Date: 2024 15:39 ET Assigned Physician: Melvin Orellana Reviewed and Electronically Signed By: Melvin Orellana Signed Date: 2024 15:43 ET Workstation ID: [id number] Transcribed By: Self Edit Transcribed Date: 2024 15:39 ET Narrative 2024 3:43 PM EDT EXAMINATION: ABDOMEN ULTRASOUND, LIMITED CLINICAL INFORMATION: Pain. History of fatty liver COMPARISON: None. TECHNIQUE: Ultrasound of the right upper quadrant FINDINGS: QUALITY: The study is limited. Habitus and acoustical access precluded assessment of some of the upper abdomen LI - ??RADS visualization score = Visualization B: Moderate limitations DAILEY for visualization scoring: A - Minimal limitations-unlikely to meaningfully affect sensitivity B - Moderate limitations-limitations may obscure small masses C - Severe limitations-limitations significantly lowers sensitivity for focal liver lesions PANCREAS: Most of the pancreas was obscured. No large abnormality. ABDOMINAL AORTA/IVC: The IVC was not well visualized. LIVER: The right lobe of the liver measures 16.1 cm. The liver is not optimally evaluated. The liver contour appears smooth. There is diffuse increased hepatic echogenicity with poor definition of the portal tracts. Sound attenuated by the liver with limited assessment of the diaphragm. No large focal liver lesion. Some poorly defined decreased echogenicity around the gallbladder fossa may be related to localized sparing within a fatty liver. BILIARY: There is no definite shadowing calculus. There are some echoes within the gallbladder. The gallbladder wall is not thickened and there is no pericholecystic fluid. COMMON BILE DUCT: The common duct measures 0.3 cm which is within normal limits. GALLBLADDER TENDERNESS: There is no reported tenderness to transducer pressure over the gallbladder. KIDNEYS: Right renal length: ??10.5 cm in greatest length Left renal length: ??Not examined. There is no dilation of the intrarenal collecting system in the right kidney. There is no suspicious focal lesion demonstrated in the right kidney. There is no shadowing calculus demonstrated ??in the right kidney. FLUID: No intraperitoneal fluid demonstrated in the upper abdomen Procedure Note Melvin Orellana MD - 2024 EXAMINATION: ABDOMEN ULTRASOUND, LIMITED CLINICAL INFORMATION: Pain. History of fatty liver COMPARISON: None. TECHNIQUE: Ultrasound of the right upper quadrant FINDINGS: QUALITY: The study is limited. Habitus and acoustical access precludedassessment of some of the upper abdomen LI - RADS visualization score = Visualization B: Moderate limitations DAILEY for visualization scoring: A - Minimal limitations-unlikely to meaningfully affect sensitivity B - Moderate limitations-limitations may obscure small masses C - Severe limitations-limitations significantly lowers sensitivity forfocal liver lesions PANCREAS: Most of the pancreas was obscured. No large abnormality. ABDOMINAL AORTA/IVC: The IVC was not well visualized. LIVER: The right lobe of the liver measures 16.1 cm. The liver is not optimally evaluated. The liver contour appears smooth.There is diffuse increased hepatic echogenicity with poor definition ofthe portal tracts. Sound attenuated by the liver with limited assessment of the diaphragm. No large focal liver lesion. Some poorly defined decreased echogenicityaround the gallbladder fossa may be related to localized sparing within afatty liver. BILIARY: There is no definite shadowing calculus. There are some echoeswithin the gallbladder. The gallbladder wall is not thickened and there isno pericholecystic fluid. COMMON BILE DUCT: The common duct measures 0.3 cm which is within normallimits. GALLBLADDER TENDERNESS: There is no reported tenderness to transducerpressure over the gallbladder. KIDNEYS: Right renal length: 10.5 cm in greatest length Left renal length: Not examined. There is no dilation of the intrarenal collecting system in the rightkidney. There is no suspicious focal lesion demonstrated in the right kidney. There is no shadowing calculus demonstrated in the right kidney. FLUID: No intraperitoneal fluid demonstrated in the upper abdomen IMPRESSION: Limited study. Echogenic sound attenuating liver which could be related to fatty changeand/or fibrosis. No ascites, cholelithiasis or biliary dilation -------- FINAL REPORT -------- Dictated By: Melvin Orellana Dictated Date: 2024 15:39 ET Assigned Physician: Melvin Orellana Reviewed and Electronically Signed By: Melvin Orellana Signed Date: 2024 15:43 ET Workstation ID: [id number] Transcribed By: Self Edit Transcribed Date: 2024 15:39 ET us Justin Ovalle MD IMG US PROCEDURES Final Result * XR Chest 2 Views (2024 2:47 PM EDT) Anatomical Region Laterality Modality Body Radiographic Es ging 2024 3:52 PM EDT Impressions 2024 3:54 PM EDT No focal pneumonia. Hypoinflation -------- FINAL REPORT -------- Dictated By: Melvin Orellana Dictated Date: 2024 15:52 ET Assigned Physician: Melvin Orellana Reviewed and Electronically Signed By: Melvin Orellana Signed Date: 2024 15:54 ET Workstation ID: [id number] Transcribed By: Self Edit Transcribed Date: 2024 15:52 ET Narrative 2024 3:54 PM EDT EXAMINATION: CHEST CLINICAL INFORMATION: Right lower chest pain. Dry cough COMPARISON: None. TECHNIQUE: 2 views of the chest FINDINGS: Tortuous aorta. Cardiac size, gonzalo and vasculature are within normal limits. There is hypoinflation. There is no focal area of consolidation. Minor linear opacities at left base may be atelectasis. There is no pleural fluid or pneumothorax. No suspicious focal bony lesion. Procedure Note Melvin Orellana MD - 05/18/2025 EXAMINATION: CHEST CLINICAL INFORMATION: Right lower chest pain. Dry cough COMPARISON: None. TECHNIQUE: 2 views of the chest FINDINGS: Tortuous aorta. Cardiac size, gonzalo and vasculature are within normallimits. There is hypoinflation. There is no focal area of consolidation. Minorlinear opacities at left base may be atelectasis. There is no pleuralfluid or pneumothorax. No suspicious focal bony lesion. IMPRESSION: No focal pneumonia. Hypoinflation -------- FINAL REPORT -------- Dictated By: Melvin Orellana Dictated Date: 2024 15:52 ET Assigned Physician: Melvin Orellana Reviewed and Electronically Signed By: Melvin Orellana Signed Date: 2024 15:54 ET Workstation ID: [id number] Transcribed By: Self Edit Transcribed Date: 2024 15:52 ET us Justin Ovalle MD IMG XR PROCEDURES Final Result * CBC auto differential (2024 12:22 PM EDT) WBC 8.6 4.8 - 10.8 K/mcL LAB HEMETOLOGY METHOD 2024 12:31 PM EDT [facility] RBC 5.00 4.50 - 5.50 M/mcL LAB HEMETOLOGY METHOD 2024 12:31 PM EDT [facility] Hemoglobin 14.8 13.5 - 17.5 g/dL LAB HEMETOLOGY METHOD 2024 12:31 PM EDT [facility] Hematocrit 44.2 42.0 - 54.0 % LAB HEMETOLOGY METHOD 2024 12:31 PM EDT [facility] MCV 89.1 79.0 - 98.0 FL [facility]24 [facility] MCH 29.8 27.0 - 32.0 pcg LAB HEMETOLOGY METHOD 2024 12:31 PM EDT [facility] MCHC 33.5 32.0 - 37.0 g/dL LAB HEMETOLOGY METHOD 2024 12:31 PM [facility] RDW 12.1 11.0 - 15.0 % LAB HEMETOLOGY METHOD 2024 12:31 PM [facility] Platelets 353 130 - 400 K/mcL LAB HEMETOLOGY METHOD 2024 12:31 PM [facility] MPV 9.6 7.0 - 11.0 FL LAB HEMETOLOGY METHOD 2024 12:31 PM [facility] NRBC 0.0 <1.0 % LAB HEMETOLOGY METHOD 2024 12:31 PM [facility] NRBC Absolute 0.00 <0.10 K/mcL LAB HEMETOLOGY METHOD 2024 12:31 PM [facility] Neutrophils Relative 64.4 % LAB HEMETOLOGY METHOD 2024 12:31 PM [facility] Lymphocytes Relative 24.9 % LAB HEMETOLOGY METHOD 2024 12:31 PM [facility] Monocytes Relative 9.6 % LAB HEMETOLOGY METHOD 2024 12:31 PM [facility] Eosinophils Relative 0.6 % LAB HEMETOLOGY METHOD 2024 12:31 PM [facility] Basophils Relative 0.3 % LAB HEMETOLOGY METHOD 2024 12:31 PM [facility] Immature Granulocytes Relative 0.2 % LAB HEMETOLOGY METHOD 2024 12:31 PM [facility] Neutrophils Absolute 5.56 1.50 - 7.00 K/mcL LAB HEMETOLOGY METHOD 2024 12:31 PM EDT [facility] Lymphocytes Absolute 2.15 1.00 - 5.00 K/mcL LAB HEMETOLOGY METHOD 2024 12:31 PM EDT [facility] Monocytes Absolute 0.83 0.20 - 1.00 K/mcL LAB HEMETOLOGY METHOD 2024 12:31 PM EDT [facility] Eosinophils Absolute 0.05 0.00 - 0.50 K/[facility] LAB HEMETOLOGY METHOD 2024 12:31 PM EDT [facility] Basophils Absolute 0.03 0.00 - 0.20 K/[facility] LAB HEMETOLOGY METHOD 2024 12:31 PM EDT [facility] Immature Granulocytes Absolute 0.02 0.00 - 0.03 K/[facility] LAB HEMETOLOGY METHOD 2024 12:31 PM EDT [facility] Blood Venous blood specimen / Unknown Venipuncture / Unknown 2024 12:22 PM EDT 2024 12:29 PM EDT Justin Ovalle MD LAB BLOOD ORDERABLES Final Res ult Performing Organization Address [facility]/ZIP Co de Phone Number [facility] [address] [place] [address], * Magnesium (2024 12:22 PM EDT) Magnesium 2.1 1.9 - 2.6 mg/dL LAB CHEMISTRY METHOD 2024 1:03 PM EDT [facility] Blood Venous blood specimen / Unknown Venipuncture / Unknown 2024 12:22 PM EDT 2024 12:29 PM EDT Justin Ovalle MD LAB BLOOD ORDERABLES Final Res ult [facility] [address] [place] [address], [place] [phone] * (ABNORMAL) Hepatic function panel (2024 12:22 PM EDT) Total Protein 8.1(H) 6.0 - 8.0 g/dL LAB CHEMISTRY METHOD 2024 2:41 PM EDT [facility] Albumin 4.2 3.2 - 5.0 g/dL LAB CHEMISTRY METHOD 2024 2:41 PM EDT [facility] Total Bilirubin 0.8 0.0 - 1.4 mg/dL LAB CHEMISTRY METHOD 2024 2:41 PM EDT [facility] Bilirubin, Direct 0.2 0.0 - 0.3 mg/dL LAB CHEMISTRY METHOD 2024 2:41 PM EDT [facility] Bilirubin, Indirect 0.6 0.0 - 1.1 mg/dL LAB CHEMISTRY METHOD 2024 2:41 PM EDT [facility] ALT (SGPT) 53 10 - 60 unit/L LAB CHEMISTRY METHOD 2024 2:41 PM EDT [facility] AST (SGOT) 23 10 - 42 unit/L LAB CHEMISTRY METHOD 2024 2:41 PM EDT [facility] Alkaline Phosphatase 65 42 - 121 unit/L LAB CHEMISTRY METHOD 2024 2:41 PM EDT [facility] Blood Venous blood specimen / Unknown Venipuncture / Unknown 2024 12:22 PM EDT 2024 12:29 PM EDT us Justin Ovalle MD LAB BLOOD ORDERABLES Final Res ult [facility] [address], [place] [address] [phone] * (ABNORMAL) Basic metabolic panel (2024 12:22 PM EDT) Sodium 132(L) 133 - 145 mmol/L LAB CHEMISTRY METHOD 2024 1:03 PM [facility] Potassium 4.8 3.5 - 5.5 mmol/L LAB CHEMISTRY METHOD 2024 1:03 PM [facility] Chloride 100 96 - 110 mmol/L LAB CHEMISTRY METHOD 2024 1:03 PM [facility] CO2 26 21 - 32 mmol/L LAB CHEMISTRY METHOD 2024 1:03 PM [facility] Anion Gap 6 3 - 11 LAB CHEMISTRY METHOD 2024 1:03 PM [facility] Glucose 119(H) 70 - 100 mg/dL LAB CHEMISTRY METHOD 2024 1:03 PM [facility] BUN 18 5 - 25 mg/dL LAB CHEMISTRY METHOD 2024 1:03 PM [facility] Creatinine 1.00 0.70 - 1.30 mg/dL LAB CHEMISTRY METHOD 2024 1:03 PM [facility] eGFR 86 >=60 mL/min/1. 73m2 LAB CHEMISTRY METHOD 2024 1:03 PM [facility] Comment:Calculation based on the Chronic Kidney Disease Epidemiology Collaboration (CKD-EPI) equation refit without adjustment for race. BUN/Creatinine Ratio 18.0 LAB CHEMISTRY METHOD 2024 1:03 PM [facility] Calcium 9.6 8.5 - 10.5 mg/dL LAB CHEMISTRY METHOD 2024 1:03 PM [facility] Blood Venous blood specimen / Unknown Venipuncture / Unknown 2024 12:22 PM EDT 2024 12:29 PM EDT Justin Ovalle MD LAB BLOOD ORDERABLES Final Res ult [facility] [address] [place] [address], [place] [phone] * ECG 12 lead (2024 12:16 PM EDT) Ventricular Rate ECG 61 BPM GEMUSE Atrial Rate 61 BPM GEMUSE P-R Interval 154 ms GEMUSE QRS Duration 90 ms GEMUSE Q-T Interval 392 ms GEMUSE QTc 394 ms GEMUSE P Wave [place] -7 degrees GEMUSE R [place] 1 degrees GEMUSE T [place] -2 degrees GEMUSE ECG Interpretation Normal sinus rhythm Normal ECG No previous ECGs available Confirmed by GERTRUDIS LANDIN ([id number]) on 2024 9:02:44 PM GEMUSE 2024 12:1 6 PM EDT 2024 9:02 PM EDT Justin Ovalle MD ECG ORDERABLES Final Result GEMUSE from Last 3 Months Insurance [facility] Care Teams Market Survey Representative Relationship Specialty Start Date End Date Avel Vee MD [address] [place] [id number] PCP - General Internal Medicine 09/27/24
--- NOTE | 2024-10-26 09:42 | ED.DIZZY ---
HPI - Dizziness General Chief Complaint: Dizziness Stated Complaint: quest dehydration, veritgo, multi issues Time Seen by Provider: 10/26/24 09:02 Source: patient, RN notes reviewed and old records reviewed Mode of arrival: ambulatory History of Present Illness ED Provider: Dana Ricardo PA-C HPI Narrative: 59-year-old male with a past medical history of sleep apnea, Meniere's disease, diabetes, HLD, HTN, presenting to the ED complaining of dizziness described as feeling off balance worse with position changes/head movement & resolved at rest x1.5 months with associated decreased p.o. intake, lethargy, nausea/vomiting. Also reports diffuse abdominal pain x today. Admits has been worked up/seen in the ED recently for similar symptoms, most recently 3 weeks ago at [facility], also with recent endoscopy/colonoscopy at [facility]. reports patient with 20 lb weight loss since the beginning of the year. Denies headache, vision loss, CP/SOB, dysuria/hematuria Related Data Home Medications ?Medication ?Instructions ?Recorded ?Confirmed ascorbic acid (vitamin C) 250 mg 250 mg PO DAILY 06/11/24 10/20/24 tablet (Vitamin C) multivitamin 1 tab PO DAILY 06/11/24 10/20/24 vitamin B complex 1 tab PO DAILY 06/11/24 10/20/24 vitamin E 268 mg (400 unit) capsule 268 mg PO DAILY 06/11/24 10/20/24 Previous Rx's ?Medication ?Instructions ?Recorded Freestyle freedom lite lancets #1 ea 12/09/23 blood-glucose meter (FreeStyle #1 ea 12/09/23 Isola Lite kit) freestyle freedom lite test strips #1 ea 12/09/23 metformin 500 mg tablet 500 mg PO BID #180 tabs 06/05/24 lisinopril 10 mg tablet 10 mg PO DAILY #90 tabs 09/17/24 meclizine 25 mg tablet 25 mg PO Q6H PRN dizziness #30 tabs 09/17/24 simvastatin 5 mg tablet 5 mg PO BEDTIME #90 tabs 09/18/24 omeprazole 40 mg capsule,delayed 40 mg PO DAILY #90 caps 09/24/24 release ondansetron 4 mg disintegrating 4 mg PO Q8H PRN nausea and 09/24/24 tablet vomiting #20 tabs meclizine 25 mg tablet 25 mg PO TID PRN dizziness #14 tabs 10/26/24 Allergies Allergy/AdvReac Type Severity Reaction Status Date / Time No Known Allergies Allergy Verified 10/26/24 08:05 Review of Systems Review of Systems: Yes all other systems are reviewed and are negative Constitutional: Constitutional: Reports as per HPI Neurologic: Denies Abnormal speech present and Denies Sensory deficit (Neuro) [facility] Past Medical History Attestation statement: The following information was validated with the patient. Source: old records reviewed Medical History Nausea Elevated ferritin level Abdominal pain Class 1 obesity with body mass index (BMI) of 32.0 to 32.9 in adult Sleep apnea Meniere disease Fatigue Neck pain Dizziness Diabetes mellitus Hyperlipidemia Hypertension Dermatitis associated with moisture Surgical History H/O colonoscopy No pertinent past surgical history Social History Social History Household Members: Significant Other Housing: House Alcohol intake: never Patient Tobacco Use Status: Never used Tobacco e-Cigarette/Vaping Use: Never Used Second Hand Smoke Exposure: No Advance Directives: Yes Advance Directives on File: Yes Advance Directives Date on File: 06/15/24 service: No Current occupational status: retired Cognitive needs: No Hearing needs: No Vision needs: Yes (GLasses) Physical Exam Vital Signs: Vital Signs: Last Vital Signs Temp 98.1 F 10/26/24 12:40 Pulse 78 10/26/24 12:40 Resp 17 10/26/24 12:40 BP 158/65 H 10/26/24 12:40 Pulse Ox 97 10/26/24 12:40 O2 Del Method Room Air 10/26/24 10:00 BMI result Body Mass Index 31.4 Const: General: cooperative, healthy appearing and no acute distress Orientation/consciousness: patient oriented x3 Limitations: no limitations HEENT: Head: Yes normal to inspection and Yes atraumatic Ears: hearing grossly normal bilaterally General nose exam: Normal external nose present Face and sinus: Yes normal facial exam Throat: Yes posterior oropharynx normal, Yes uvula midline, No peritonsillar mass, No uvula laterally displaced and No uvular edema Eyes: General: appearance normal, both eyes and all related structures EOM: EOMs intact bilaterally and Nystagmus present Neck: Neck: Yes normal visual inspection and Yes no meningeal signs Resp: Effort & Inspection: normal respiratory effort and no respiratory distress Auscultation: clear to auscultation bilaterally, no crackles and no wheezes Cardio: Rate: regular rate Heart sounds: S1 normal heart sound present and S2 normal heart sound present GI: Inspection: Yes normal to inspection Palpation (GI): Soft to palpation, Tenderness to palpation present (GI) (Diffusely) with no rebound tenderness, no guarding and not rigid : General: Yes no CVA tenderness Back/Spine/Pelvis: Back: no CVA tenderness Skin: Rashes: no rashes Wounds: no wounds Neuro: General: patient oriented x3, tone normal, moves all extremities, no meningeal signs, no focal motor deficits and CN's II-XI intact bilaterally Cranial nerves: Yes CN's II-XII intact bilaterally and Yes Nystagmus present horizontal fast component to the left Cognition (Neuro): normal cognition Speech: No Abnormal speech present Motor exam (neuro): 5/5 motor strength present throughout Sensory Exam: No Sensory deficit (Neuro) Coordination: [id number] test normal Romberg Test: Negative Extrem: General: Yes normal to inspection Course Course Course Narrative: -1208--no leukocytosis. Initial troponin 5.0 > will obtain repeat CT abdomen pelvis w IV con IMPRESSION: Again noted is a grossly distended bladder. There is also mild distention of both ureters, but no obstructing stone or mass was evident. Mild diffuse fatty changes are present in the liver. Moderate to severe degenerative disc disease and facet arthropathy has increased since the prior examination. Fleischner guidelines were followed. >1213--on re-evaluation patient is sitting comfortably in stretcher. Denies abdominal pain at present. Denies dizziness swallowing still in bed. Will perform ambulation trial and repeat troponin -1300-patient ambulated in ED with assistance, did become dizzy. No ataxia. Will try PO Ativan and re-evaluate > patient refused Ativan due to concern of lethargy -1318--patient/ state he has a hematology appointment at [facility] at 1400 and would like to be discharged to make this appointment. Discussed strict return precautions and needed close follow-up. Patient currently follows with chiropractor to perform Fidel maneuvers. Recommended close Neurology follow-up. Low suspicion for a posterior CVA at this time with chronic symptoms and MRI that was negative in May. Symptoms are unchanged since. Will prescribe meclizine. Also recommended p.o. Benadryl OTC at home for dizziness. Discussed at length medications and sedative side effects. Results discussed with patient including worrisome signs and symptoms and strict return precautions, and when to return to the emergency department. They verbalized understanding and feel safe for discharge at this time. Medications Administered Discontinued Medications Generic Name Dose Route Start Last Admin Trade Name Freq PRN Reason Stop Dose Admin Sodium Chloride 1,000 mls @ 999 mls/hr 10/26/24 09:30 10/26/24 12:00 Ns IV 10/26/24 10:30 Infused .Q1H1M NIR Infusion Iohexol 100 ml 10/26/24 11:17 10/26/24 11:17 Iohexol 350 Mg/Ml 100 Ml Infus..Btl IV 10/26/24 11:18 85 ml ONCE ONE Administration Meclizine HCl 25 mg 10/26/24 09:27 10/26/24 10:39 Meclizine Hcl 25 Mg Tablet PO 10/26/24 09:28 25 mg ONCE ONE Administration Ondansetron HCl 4 mg 10/26/24 09:27 10/26/24 10:39 Ondansetron Hcl 4 Mg/2 Ml Vial IVPUSH 10/26/24 09:28 4 mg ONCE ONE Administration Medical Decision Making Medical Decision Making MDM Narrative: 59-year-old male with a past medical history of sleep apnea, Meniere's disease, diabetes, HLD, HTN, presenting to the ED complaining of dizziness described as feeling off balance worse with position changes/head movement & resolved at rest x1.5 months with associated decreased p.o. intake, lethargy, nausea/vomiting. Also reports diffuse abdominal pain x today. On exam vital signs stable, NAD, nontoxic appearing, no focal neuro deficits, dizziness elicited with position change/head movement, resolved at rest. Abdomen is soft diffusely tender, no rebound or guarding. Concern for BPPV/vertigo vs metabolic abnormalities. Concern for intra-abdominal pathology including appendicitis/diverticulitis pancreatitis or cholecystitis/lithiasis. Lower suspicion for acute CVA/TIA or posterior CVA, patient with multiple recent workups for similar symptoms with recent negative brain MRI in May. Lower suspicion for dissection/ACS Plan: EKG, labs, UA, CT AP, IVF, re-evaluate Please refer to course for remaining clinical decision making, interpretation of labs/imaging results, and discussions with consultants and/or family members. Differential Diagnosis Differential Diagnoses: The differential diagnosis associated with the presentation includes As above Admission/Observation Consideration of admission/observation: Escalation of care including admission/observation considered Lab Data MDM Lab Attestation statement: I reviewed the patient's lab results. 10/26/24 08:10 10/26/24 08:10 Labs: Lab Results 10/26/24 10/26/24 10/26/24 Range/Units 08:10 10:16 12:39 WBC 7.9 (4.8-10.8) X10*3/uL RBC 4.95 (4.60-5.80) X10*6/uL Hgb 15.1 (14.0-18.0) g/dl Hct 42.6 (42.0-52.0) % MCV 86.1 (80.0-98.0) fL MCH 30.5 (27.0-33.0) pg MCHC 35.4 (31.0-36.0) g/dl RDW 12.3 (11.0-16.0) % Plt Count 301 (160-400) X10*3/uL MPV 9.4 (9.4-12.4) fL Immature Gran % (Auto) 0.1 (0.0-0.4) % Neut % (Auto) 67.9 (45-73) % Lymph % (Auto) 20.9 (20-40) % [place] % (Auto) 10.0 (2-11) % Eos % (Auto) 0.6 (0-4) % Baso % (Auto) 0.5 (0-2) % Lymph # (Auto) 1.7 (1.2-4.9) X10*3/uL [place] # (Auto) 0.8 (0.1-1.2) X10*3/uL Eos # (Auto) 0.1 (0.0-0.4) X10*3/uL Baso # (Auto) 0.0 (0.0-0.2) X10*3/uL Abs Immat Gran (auto) 0.01 (0.00-0.03) X10*3/uL Absolute Neuts (auto) 5.4 (2.0-8.3) x10*3/uL Absolute Nucleated RBC 0.000 (0.0-0.012) X10*3/uL Nucleated RBC % (auto) 0.0 (0.0-0.2) /100WBC Sodium 138 (135-145) mmol/L Potassium 4.4 (3.3-5.1) mmol/L Chloride 103 (96-108) mmol/L Carbon Dioxide 26 (22-29) mmol/L Anion Gap 13 (12-20) BUN 12 (9-16) mg/dL Creatinine 0.96 (0.5-1.4) mg/dL Estim Creat Clear Calc 79.4 Estimated GFR > 60 Random Glucose 101 (60-115) mg/dL Calcium 9.8 (8.4-10.2) mg/dL Magnesium 2.4 (1.6-2.6) mg/dL Total Bilirubin 0.8 (0.0-1.0) mg/dL AST 26 (5-37) U/L ALT 43 H (0-40) U/L Alkaline Phosphatase 60 (39-117) U/L Troponin I High Sens 5.0 D 6.7 (<3.5-35.0) ng/L Total Protein 7.5 (6.5-8.0) g/dL Albumin 4.6 (3.5-5.0) g/dL Lipase 35 (8-78) U/L Urine Color Yellow Urine Appearance Clear Urine pH 6.5 (5.0-9.0) Ur Specific [place] <= 1.005 (1.005-1.025) Urine Protein Negative (Neg-Trace) mg/dL Urine Glucose (UA) Negative (Negative) mg/dL Urine Ketones Negative (Negative) mg/dL Urine Blood Negative (Negative) Urine Nitrite Negative (Negative) Ur Leukocyte Esterase Negative (Negative) Independent Interpretation I performed an independent interpretation of an: EKG Radiology Impression Discussion of test interpretation with radiology: I have reviewed the radiologist's reading. Independent Historian Clinical information obtained from an independent historian. History obtained from or confirmed by: Spouse External Record Review External record reviewed: Inpatient record, Office record, Outpatient record, Prior outpatient labs, Prior outpatient radiology, Primary care record and Outside ED record Tests considered The following testing was considered but not selected: As above Prescription Management I considered prescription management with: Other Chronic Conditions Patient?s care impacted by: Hypertension Social Determinants Patient?s care significantly limited by Social Determinants of Health including: Other Social Determinant of Health Discharge Plan Discharge Clinical Impression: Dizziness Patient Disposition: Home, Self-Care Instructions: Dizziness (ED) Additional Instructions: Your blood work is reassuring. Your CAT scan showed a distended bladder and fullness of your ureters. No stones or obstructing mass. You need to have close follow up with Urology pertaining to this Please have close follow up with Neurology as well as your chiropractor -call to make an appointment Meclizine will help with dizziness, take as needed If your dizziness is constant, not just with position changes, you have headache, vision change or loss, weakness, chest pain or shortness of breath return to the ED Prescriptions: New meclizine 25 mg tablet 25 mg PO TID PRN (Reason: dizziness) Qty: 14 0RF No Action (DME) blood-glucose meter [FreeStyle Isola Lite] Kit See Rx Instructions .Route Qty: 1 0RF Rx Instructions: Test twice a day (DME) freestyle freedom lite test strips See Rx Instructions .Route .MEDSUPPLY Qty: 1 0RF Rx Instructions: As directed (DME) Freestyle freedom lite lancets See Rx Instructions .Route .MEDSUPPLY Qty: 1 0RF Rx Instructions: As directed metformin 500 mg tablet 500 mg PO BID Qty: 180 1RF simvastatin 5 mg tablet 5 mg PO BEDTIME Qty: 90 1RF omeprazole 40 mg capsule,delayed release(DR/EC) 40 mg PO DAILY Qty: 90 1RF ondansetron 4 mg tablet,disintegrating 4 mg PO Q8H PRN (Reason: nausea and vomiting) Qty: 20 0RF multivitamin Tablet 1 tab PO DAILY ascorbic acid (vitamin C) [Vitamin C] 250 mg Tablet 250 mg PO DAILY vitamin B complex Tablet 1 tab PO DAILY vitamin E 268 mg (400 unit) Capsule 268 mg PO DAILY lisinopril 10 mg tablet 10 mg PO DAILY Qty: 90 1RF meclizine 25 mg tablet 25 mg PO Q6H PRN (Reason: dizziness) Qty: 30 1RF Referrals: [facility] Neuro/Sleep [Provider Group] - 1 week Avel Vee MD [Primary Care Provider] - 3 days Print Language: American
--- NOTE | 2024-10-26 09:49 | ECG_ITS ---
Test Reason : DIZZINESS Blood Pressure : */* mmHG Vent. Rate : 67 BPM Atrial Rate : 67 BPM P-R Int : 152 ms QRS Dur : 82 ms QT Int : 392 ms P-R-T Axes : 63 42 45 degrees QTcB Int : 414 ms Normal sinus rhythm Normal ECG When compared with ECG of 04-Sep-2024 08:03, No significant change was found Referred By: Dana Ricardo Electronically Signed By: Manny Bright
[2024-10-26 09:52] LABS: Magnesium 2.4 mg/dL (1.6-2.6)
[2024-10-26 10:00] VITALS: BP 170/75; PULSE 68; RESP 12; O2SAT 97
[2024-10-26] MEDS: 0.9 % Sodium Chloride 1,000 ML 999 ML IV (10:38)
[2024-10-26] MEDS: ondansetron HCL 4 MG/2 ML VIAL IVPUSH (10:39)
[2024-10-26] MEDS: Meclizine HCl 25 MG TABLET PO (10:39)
[2024-10-26 10:40] LABS: Appearance Urine Clear; Color Urine Yellow; Glucose Urine UA Negative (Negative); Leukocyte Esterase Urine Negative (Negative); Nitrite Urine Negative (Negative); PH 6.5 (5.0-9.0); Specific Gravity - Urine <= 1.005 (1.005-1.025); Urine Blood Negative (Negative); Urine Ketones Negative (Negative); Urine Protein Negative (Neg-Trace)
[2024-10-26] MEDS: iohexoL 350 MG/ML 100 ML INFUS..BTL IV (11:17)
[2024-10-26 12:40] VITALS: BP 158/65; PULSE 78; RESP 17; TEMP 36.7; O2SAT 97
[2024-10-26 13:11] LABS: Troponin-I High Sensitivity 6.7 ng/L (<3.5-35.0)
--- NOTE | 2024-10-26 13:22 | PC.NURSE ---
Pt ambulated slowly in hallway; reports dizziness; steady gait at this time; pt had Ativan PO ordered; initial dose returned because the barcode was damaged and wouldn't scan; new dose pulled and brought to pt; pt refused med because he was worried about becoming dizzier/more fatigued; both removed dose returned (witnessed) to Pyxis; provider made aware
[2024-10-26 14:15] VITALS: BP 151/82; PULSE 68; RESP 17; TEMP 36.7; O2SAT 100
== END 2024-10-26 14:17 | disposition home or self-care (01) ==
PROVIDERS: Physician Assistant; Emergency Provider Emergency Medicine Emergency Medical Services; PCP Internal Medicine
DX: R42 Dizziness and giddiness (principal); R10.9 Unspecified abdominal pain; E11.9 Type 2 diabetes mellitus without complications; I10 Essential (primary) hypertension; E78.5 Hyperlipidemia, unspecified; Z79.84 Long term (current) use of oral hypoglycemic drugs; Z79.02 Long term (current) use of antithrombotics/antiplatelets; Z79.899 Other long term (current) drug therapy
CPT/HCPCS: 36415; 74177; 80053; 81003; 83690; 83735; 84484; 85025; 93005; 96361; 96374; 99284; J2405; Q9967

== ENCOUNTER → 2024-10-26 09:27 | Outpatient (BNV) | payer BC, SELFPAY | PROVIDERS: Emergency Provider Emergency Medicine Emergency Medical Services; PCP Internal Medicine; Visit Provider Radiology Diagnostic Radiology | DX: R10.9 Unspecified abdominal pain (principal); M51.369 Other intervertebral disc degeneration, lumbar region without mention of lumbar back pain or lower extremity pain | CPT/HCPCS: 74177 ==

== ENCOUNTER → 2024-10-26 09:49 | Outpatient (BNV) | payer BC, SELFPAY | PROVIDERS: Emergency Provider Emergency Medicine Emergency Medical Services; PCP Internal Medicine; Visit Provider Internal Medicine Cardiovascular Disease | DX: R42 Dizziness and giddiness (principal) | CPT/HCPCS: 93010 ==

== ENCOUNTER 2024-10-28 12:57 | Outpatient (RCR) | payer BC, SELFPAY | END 2024-11-26 09:58 | disposition home or self-care (01) | LOC: HO.PT 12:57 | PROVIDERS: PCP Internal Medicine; Visit Provider Physician Assistant Medical | DX: H81.09 Meniere's disease, unspecified ear (principal); M54.2 Cervicalgia | CPT/HCPCS: 95992; 97112; 97162 ==

== ENCOUNTER 2024-10-29 09:20 | Outpatient (REF) | payer BC, SELFPAY ==
--- OUTSIDE RECORDS SUMMARY | 2024-10-29 10:02 | XMS_ITS | Clinical Summary ---
Author Organization [facility] Address [address] [place] [address] Phone Care Team Providers Care Crm System Administrator Name Role Phone Avel Vee MD Primary Care Provider [phone] Allergies No known active allergies Medications sucralfate (CARAFATE) 100 mg/mL suspension Take 10 mL (1 g total) by mouth 4 (four) times a day (before meals and nightly). 1200 mL 09/28/2024 5 Encounters Date Type Department Care Team Description 2024 12:48 PM EDT - 2024 9:09 PM EDT Emergency [facility] Emergency [address] [place] [address] Justin Ovalle MD Gastritis without [...] 66 2024 9:08 PM EDT Temperature 36.9 C (98.4 F) 2024 9:08 PM EDT Respiratory Rate 18 2024 9:08 PM EDT [...] adenopathy. Abdominal aorta is normal caliber with [id number] calcific athero sclerosis. Bowel loops reveal no [...] adenopathy. Abdominal aorta is normal caliber with [id number] calcific athero sclerosis. Bowel loops reveal no [...] Signed Date: 2024 15:43 ET Workstation ID: [id number] Transcribed By: Self Edit Transcribed Date: 2024 [...] Signed Date: 2024 15:43 ET Workstation ID: [id number] Transcribed By: Self Edit Transcribed Date: 2024 [...] Signed Date: 2024 15:54 ET Workstation ID: [id number] Transcribed By: Self Edit Transcribed Date: 2024 [...] lesion. Procedure Note Melvin Orellana MD - 2024 EXAMINATION: CHEST CLINICAL INFORMATION: Right lower chest [...] Signed Date: 2024 15:54 ET Workstation ID: [id number] Transcribed By: Self Edit Transcribed Date: 2024 15:52 ET us Justin Ovalle MD IMG XR PROCEDURES Final Result * CBC auto differential (2024 12:22 PM EDT) WBC 8.6 4.8 - 10.8 K/mcL LAB HEMETOLOGY METHOD 2024 12:31 PM EDT [facility] RBC 5.00 4.50 - 5.50 M/mcL LAB HEMETOLOGY METHOD 2024 12:31 PM EDT [facility] Hemoglobin 14.8 13.5 - 17.5 g/dL LAB HEMETOLOGY METHOD 2024 12:31 PM EDT [facility] Hematocrit 44.2 42.0 - 54.0 % LAB HEMETOLOGY METHOD 2024 12:31 PM EDT [facility] MCV 89.1 79.0 - 98.0 FL LAB HEMETOLOGY METHOD 2024 12:31 PM EDT [facility] MCH 29.8 27.0 - 32.0 pcg LAB HEMETOLOGY METHOD 2024 12:31 PM [facility] MCHC 33.5 32.0 - 37.0 g/dL [facility]24 [facility] RDW 12.1 11.0 - 15.0 % LAB HEMETOLOGY METHOD 2024 12:31 PM [facility] Platelets 353 130 - 400 K/mcL LAB HEMETOLOGY METHOD 2024 12:31 PM [facility] MPV 9.6 7.0 - 11.0 FL LAB HEMETOLOGY METHOD 2024 12:31 PM [facility] NRBC 0.0 <1.0 % LAB HEMETOLOGY METHOD 2024 12:31 PM [facility] NRBC Absolute 0.00 <0.10 K/mcL LAB HEMETOLOGY METHOD 2024 12:31 PM [facility] Neutrophils Relative 64.4 % LAB HEMETOLOGY METHOD 2024 12:31 PM [facility] Lymphocytes Relative 24.9 % LAB HEMETOLOGY METHOD 2024 12:31 PM [facility] Monocytes Relative 9.6 % LAB HEMETOLOGY METHOD 2024 12:31 PM [facility] Eosinophils Relative 0.6 % LAB HEMETOLOGY METHOD 2024 12:31 PM [facility] Basophils Relative 0.3 % LAB HEMETOLOGY METHOD 2024 12:31 PM [facility] Immature Granulocytes Relative 0.2 % LAB HEMETOLOGY METHOD 2024 12:31 PM [facility] Neutrophils Absolute 5.56 1.50 - 7.00 K/mcL LAB HEMETOLOGY METHOD 2024 12:31 PM [facility] Lymphocytes Absolute 2.15 1.00 - 5.00 K/mcL LAB HEMETOLOGY METHOD 2024 12:31 PM [facility] Monocytes Absolute 0.83 0.20 - 1.00 K/mcL LAB HEMETOLOGY METHOD 2024 12:31 PM EDT [facility] Eosinophils Absolute 0.05 0.00 - 0.50 K/mcL LAB HEMETOLOGY METHOD 2024 12:31 PM EDT [facility] Basophils Absolute 0.03 0.00 - 0.20 K/mcL LAB HEMETOLOGY METHOD 2024 12:31 PM EDT [facility] Immature Granulocytes Absolute 0.02 0.00 - 0.03 K/[facility] LAB HEMETOLOGY METHOD 2024 12:31 PM EDT [facility] Blood Venous blood specimen / Unknown Venipuncture / Unknown 2024 12:22 PM EDT 2024 12:29 PM EDT Justin Ovalle MD LAB BLOOD ORDERABLES Final Res ult Performing Organization Address City/[facility]/ZIP Co de Phone Number [facility] [address] [place] [address], [place] [phone] * Magnesium (2024 12:22 PM EDT) [facility] Magnesium 2.1 1.9 - 2.6 mg/dL LAB CHEMISTRY METHOD 2024 1:03 PM EDT [facility] Blood Venous blood specimen / Unknown Venipuncture / Unknown 2024 12:22 PM EDT 2024 12:29 PM EDT us Justin Ovalle MD LAB BLOOD ORDERABLES Final Res ult [facility] [address] [place] [address], [place] [phone] * (ABNORMAL) Hepatic function panel (2024 12:22 PM EDT) [facility] Total Protein 8.1(H) 6.0 - 8.0 g/dL LAB CHEMISTRY METHOD 2024 2:41 PM EDT [facility] Albumin 4.2 3.2 - 5.0 g/dL LAB CHEMISTRY METHOD 2024 2:41 PM [facility] Total Bilirubin 0.8 0.0 - 1.4 mg/dL LAB CHEMISTRY METHOD 2024 2:41 PM [facility] Bilirubin, Direct 0.2 0.0 - 0.3 mg/dL LAB CHEMISTRY METHOD 2024 2:41 PM [facility] Bilirubin, Indirect 0.6 0.0 - 1.1 mg/dL LAB CHEMISTRY METHOD 2024 2:41 PM [facility] ALT (SGPT) 53 10 - 60 unit/L LAB CHEMISTRY METHOD 2024 2:41 PM [facility] AST (SGOT) 23 10 - 42 unit/L LAB CHEMISTRY METHOD 2024 2:41 PM [facility] Alkaline Phosphatase 65 42 - 121 unit/L LAB CHEMISTRY METHOD 2024 2:41 PM [facility] Blood Venous blood specimen / Unknown Venipuncture / Unknown 2024 12:22 PM EDT 2024 12:29 PM EDT us Justin Ovalle MD LAB BLOOD ORDERABLES Final Res ult [facility] [address] [place] [address], * (ABNORMAL) Basic metabolic panel (2024 12:22 PM EDT) [facility] Sodium 132(L) 133 - 145 mmol/L LAB CHEMISTRY METHOD 2024 1:03 PM [facility] Potassium 4.8 3.5 - 5.5 mmol/L LAB CHEMISTRY METHOD 2024 1:03 PM [facility] Chloride 100 96 - 110 mmol/L LAB CHEMISTRY METHOD 2024 1:03 PM [facility] CO2 26 21 - 32 mmol/L LAB CHEMISTRY METHOD 2024 1:03 PM [facility] Anion Gap 6 3 - 11 LAB CHEMISTRY METHOD 2024 1:03 PM [facility] Glucose 119(H) 70 - 100 mg/dL LAB CHEMISTRY METHOD 2024 1:03 PM [facility] BUN 18 5 - 25 mg/dL LAB CHEMISTRY METHOD 2024 1:03 PM [facility] Creatinine 1.00 0.70 - 1.30 mg/dL LAB CHEMISTRY METHOD 2024 1:03 PM [facility] eGFR 86 >=60 mL/min/1. 73m2 LAB CHEMISTRY METHOD 2024 1:03 PM [facility] Comment:Calculation based on the Chronic Kidney Disease Epidemiology Collaboration (CKD-EPI) equation refit without adjustment for race. BUN/Creatinine Ratio 18.0 LAB CHEMISTRY METHOD 2024 1:03 PM [facility] Calcium 9.6 8.5 - 10.5 mg/dL LAB CHEMISTRY METHOD 2024 1:03 PM [facility] Blood Venous blood specimen / Unknown Venipuncture / Unknown 2024 12:22 PM EDT 2024 12:29 PM EDT us Justin Ovalle MD LAB BLOOD ORDERABLES Final Res ult [facility] [address] [place] [address], * ECG 12 lead (2024 12:16 PM EDT) Ventricular Rate ECG 61 BPM GEMUSE Atrial Rate 61 BPM GEMUSE P-R Interval 154 ms GEMUSE QRS Duration 90 ms GEMUSE Q-T Interval 392 ms GEMUSE QTc 394 ms GEMUSE P Wave [place] -7 degrees GEMUSE R [place] 1 degrees GEMUSE T [place] -2 degrees GEMUSE ECG Interpretation Normal sinus rhythm Normal ECG No previous ECGs available Confirmed by GERTRUDIS LANDIN ([id number]) on 2024 9:02:44 PM GEMUSE 2024 12:1 6 PM EDT 2024 9:02 PM EDT us Justin Ovalle MD ECG ORDERABLES Final Result GEMUSE from Last 3 Months Insurance [facility] Care Teams Crm System Administrator Relationship Specialty Start Date End Date Avel Vee MD [address] [place] [id number] PCP - General Internal Medicine 09/27/24
[2024-10-29 12:01] LABS: Rheumatoid Factor < 13.0 IU/mL (<15.0)
[2024-10-30 14:43] LABS: DHEA Sulfate 202 mcg/dL (32-279)
[2024-11-03 17:34] LABS: Anti Nuclear Antibody Pattern Nuclear, Nucleolar; Anti Nuclear Antibody Screen POSITIVE (NEGATIVE)
[2024-11-03 21:44] LABS: Testosterone, Free 23.9 pg/mL (35.0-155.0); Testosterone, Total 239 ng/dL (250-1100)
[2024-11-06 03:27] LABS: Dihydrotestosterone 24 ng/dL (12-65)
== END 2024-10-29 09:21 | disposition home or self-care (01) ==
LOC: HO.LAB 09:20
PROVIDERS: PCP Internal Medicine; Visit Provider Physician Assistant Medical
DX: Z00.00 Encounter for general adult medical examination without abnormal findings (principal); R53.83 Other fatigue; R11.0 Nausea
CPT/HCPCS: 36415; 82627; 82642; 84402; 84403; 86038; 86039; 86431; 87015; 87207; 87329

== ENCOUNTER 2024-10-29 15:27 | Outpatient (AMB) | payer BC, SELFPAY ==
--- NOTE | 2024-10-29 15:34 | A.OFFPC_ITS ---
Vital Signs 10/29/24 15:35 Height 5 ft 4 in Weight 183 lb 10.321 oz BMI 31.5 BP 160/90 H Blood Pressure Location Lt brachial Position Sitting Pulse 69 Pulse Source Pulse Oximeter Temp 97.1 F Temp Source Temporal Artery Scan Pulse Oximetry (%) 96 Oxygen Delivery Method Room Air Intake Visit Reasons: [facility] 10/26 Intake Note: Patient is here to follow-up after a visit the emergency department at [facility] on 10/26/24 Certified Bench Jeweler Technician Required: No Mandarin Chinese Teacher: Present Accompanied by: Spouse Allergies pollen extracts Allergy (Verified 11/17/24 19:24) Sneezing Medication List - Last Reconciled 11/17/24 by Avel Vee MD apixaban (Eliquis DVT-PE Treat 30D Start) 5 mg PO BID ascorbic acid (vitamin C) (Vitamin C) 250 mg PO DAILY blood-glucose meter ([place]Style [place] Lite kit) Test twice a day [freestyle freedom lite test strips As directed] lancets (FreeStyle Lancets) TEST TWICE A DAY DIRECTED lisinopril 10 mg PO DAILY lorazepam 0.5 mg PO BEDTIME PRN meclizine 25 mg PO TID PRN metformin 500 mg PO BID multivitamin 1 tab PO DAILY ondansetron 4 mg PO Q8H PRN pantoprazole 40 mg PO QAM simvastatin 5 mg PO BEDTIME verapamil ER 120 mg PO DAILY vitamin B complex 1 tab PO DAILY vitamin E 268 mg PO DAILY Tobacco use date assessed: 10/29/24 Dental Screening Dental Screen Date: 06/16/24 [facility] Medical History Vertigo Low testosterone level in male Positive CHRIS (antinuclear antibody) Nausea Elevated ferritin level Abdominal pain Class 1 obesity with body mass index (BMI) of 32.0 to 32.9 in adult Sleep apnea Meniere disease Fatigue Neck pain Dizziness Diabetes mellitus Hyperlipidemia Hypertension Dermatitis associated with moisture Surgical History H/O endoscopy H/O colonoscopy (~10/20/24) No pertinent past surgical history Family History Father Leukemia Social History Household Members: Significant Other and Children Housing: House Alcohol intake: never Patient Tobacco Use Status: Never used Tobacco Smoked in Last 30 Days: No e-Cigarette/Vaping Use: Never Used Second Hand Smoke Exposure: No Use of substances other than those prescribed or required for medical reasons: No Advance Directives: Yes Advance Directives on File: Yes Advance Directives Date on File: 06/15/24 Do you have a plan to hurt others: No Plan service: No Current occupational status: retired Cognitive needs: No Hearing needs: No Vision needs: Yes (GLasses) Questionnaire Thrive Questionnaire Date Thrive assessed: 09/17/24 ZAHIRA-7 AMB Questionnaire ZAHIRA-7 Date ZAHIRA - 7 assessed: 06/16/24 Source: Developed by Drs. Praveen Allan, Ashly Winslow, Shailesh Martinez and colleagues, with an educational yoli from [employer]. Physical exam (Primary Care) Vital Signs: Last Vital Signs Temp 97.1 F 10/29/24 15:35 Pulse 69 10/29/24 15:35 BP 160/90 H 10/29/24 15:35 Pulse Ox 96 10/29/24 15:35 Oxygen Delivery Method Room Air 10/29/24 15:35 BMI result Body Mass Index 31.5 Tobacco/Smoking Status: Tobacco use Status Tobacco use date assessed 10/29/24 10/29/24 15:40 Patient Tobacco Use Status Never used Tobacco 10/29/24 15:40 e-Cigarette/Vaping Use Never Used 10/29/24 15:40 Thrive Assessment: Date of Thrive Assessment Date Thrive assessed 09/17/24 10/29/24 15:40 Coding Level of Care Code Est Pt Level 4 (96490) Complex EM visit Add On G2211 Diagnoses Fatigue R53.83 Assessment & Plan Assessment & Plan (1) Fatigue: Code(s): R53.83 - Other fatigue Category: Medical Plan: History of Present Illness - The patient is a 59-year-old male presenting with dizziness. - The dizziness began after starting therapy three weeks ago and has been persistent. - The patient requires support for walking due to balance issues and feels dizzy even while seated. - There is no associated nausea or vomiting, but there is a noted loss of appetite. - Physical therapy with Fidel maneuvers has not been effective. - Imaging studies, including a brain MRI and CT scans, have not revealed significant abnormalities. - The patient has gastroesophageal reflux disease, which is symptomatic. - Abdominal pain led to recent colonoscopy and endoscopy. - A distended urinary bladder was noted, but the patient denies urinary symptoms. 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 - Functional status: The patient is usually active, involved in cooking and cleaning, but currently unable to perform these activities due to dizziness. Review of Systems - Neurological: Reports persistent dizziness and balance issues. Denies tinnitus or nausea. - Gastrointestinal: Reports gastroesophageal reflux disease and loss of appetite. Denies nausea or vomiting. - Genitourinary: Denies urinary frequency or nocturia. Physical Exam General: Cooperative and healthy appearing Nutritional Appearance: Well nourished Orientation/consciousness: Patient oriented x3 Limitations: No limitations Head: Normal to inspection General: Appearance normal, both eyes and all related structures Neck: Normal visual inspection Chest: Normal palpation of entire chest wall Respiratory: N ormal respiratory effort Neurology: Patient oriented x3, experiencing constant dizziness, difficulty balancing, requires support to walk, no ringing in ears, no nausea from dizziness. Results - Imaging: Brain MRI and CT scans of the chest and abdomen showed no significant findings. - Procedures: Recent colonoscopy and endoscopy performed for abdominal pain. Plan 1. Dizziness - Discontinue ineffective physical therapy. - Neurology referral for further evaluation. - Advise rest and avoidance of exacerbating activities. 2. Gastroesophageal Reflux Disease - Monitor symptoms and manage with lifestyle changes. 3. Abdominal Pain - Monitor symptoms following recent colonoscopy and endoscopy. 4. Distended Urinary Bladder - Consider urology referral if symptoms persist. Discussion Notes I discussed with the patient the current management of his dizziness, including the discontinuation of ineffective physical therapy and the plan to see a neurologist for further evaluation. I advised him to rest and avoid activities that may worsen his symptoms. We also reviewed the results of his recent imaging and procedures, which showed no significant findings. I reassured him that his blood work and scans were normal, and there is no indication of any serious underlying condition. We discussed the importance of monitoring his symptoms and following up in two weeks to reassess his condition. Patient Instructions - Rest and avoid activities that may worsen dizziness. - Follow up with the neurologist as scheduled. - Monitor symptoms and report any changes or worsening to the healthcare provider. - Continue managing gastroesophageal reflux disease with lifestyle modifications. Medications: New lorazepam 0.5 mg PO BEDTIME PRN 14 tabs 0RF anxiety
[2024-10-29 15:35] VITALS: BP 160/90; PULSE 69; TEMP 36.2; O2SAT 96; BMI 31.5
== END 2024-10-29 16:34 | disposition home or self-care (01) ==
LOC: HO.HMCH 15:27
PROVIDERS: PCP Internal Medicine; Visit Provider Internal Medicine
DX: R53.83 Other fatigue (principal)

== ENCOUNTER 2024-11-12 08:48 | Outpatient (AMB) | payer BC, SELFPAY ==
--- OUTSIDE RECORDS SUMMARY | 2024-10-20 09:30 | XMS_ITS ---
Author Organization [facility] Address [address] [place] [address] Care Team Providers Care Pipe Line Walker Name Role Phone SUSAN, LAURA Primary Care Provider Jack Reyes Jr, Jesse Avelar [phone] REASON FOR VISIT screening,gerd Medications Medication SIG (Take, Route, Frequency, Duration) Notes Start Date End Date Status Vitamin E 100 UNIT 1 capsule Orally Onc e a day for 30 day(s) Active Fish Oil Orally Once a day Ac tive Vitamin D 1000 UNIT 1 tablet /W/D3 Once a day K3 Active Vitamin B12 100 MCG 1 tablet Orally Once a day Active Multivitamins Orally Active Lisinopril Active metFORMIN HCl Active Simvastatin 10 MG 2 tablets in the gabi kay Orally Once a day Active Pantoprazole Sodium 40 MG 1 tablet 1/2 t o 1 hour before morning meal Orally Once a day for 30 days 10/15/2024 Active Vitamin C 500 MG as directed Orally Active Encounters Encounter Location Date Provider [place] [facility] [place] [facility] [address] [place] [id number] 10/20/2024 Jesse Reyes Jr Colon cancer screening Z12.11 and Gastro-esophageal reflux disease without esophagitis K21.9 Assessments Encounter Date Diagnosis (ICD Code) Assessment Notes Treatment Notes Treatment Clinical Notes Section Notes 10/20/2024 Colon cancer screening (ICD-10 - Z12.11) 10/20/2024 Gastro-esophagea l reflux disease without esophagitis (ICD-10 - K21.9) Plan Of Treatment Next Appt Details Provider Name:Jesse banuelos Jr, 11/03/2025 11:10:00 AM, [address], [address], [place], [address], Progress Notes * RAYNA HERNANDEZ LDOB: 5 (59 yo M)Acc No.[id number]:10/20/2024 EGD and COL/MAC Patient: RAYNA RUVALCABA Provider: Jeanmarie Reyes MD :1965 A ge:59 Y S ex:Male Date:10/20/2024 Address: [address], [place], [place] Pcp:LAURA DAVIS Subjective: * Chief Complaints: * 1 . Screening,gerd. * Medical History: * Medications: T aking Pantoprazole Sodium 40 MG Tablet Delayed Release 1 tablet 1/2 to 1 hour before morning meal Orally Once a day , Taking Simvastatin 10 MG Tablet 2 tablets in the evening Orally Once a day , Taking metFORMIN HCl , Taking Lisinopril , Taking Vitamin C 500 MG Capsule as directed Orally , Taking Multivitamins Capsule Orally , Taking Vitamin B12 100 MCG Tablet 1 tablet Orally Once a day , Taking Vitamin D 1000 UNIT Tablet 1 tablet /W/D3 Once a day , Notes to Pharmacist: K3, Taking Fish Oil Orally Once a day , Taking Vitamin E 100 UNIT Capsule 1 capsule Orally Once a day Objective: * Vitals: Assessment: * Assessment: 1. C olon cancer screening - Z12.11 (Primary) 2 . G guille-esophageal reflux disease without esophagitis - K21.9 Plan: * Treatment: * Procedure Codes: 4 5378 DIAGNOSTIC COLONOSCOPY, Modifiers: 33 , [address]11 UPPER GI ENDOSCOPY, BIOPSY * * The named appointment provid er may or may not be the originator of this progress note, and it is not deemed complete until electronically signed by the appointment provider. Sign off status: Pending * Provider: Jeanmarie Reyes MD Date: 10/20/2024 Generated for Sammy calvillo/Bria/Ricoitting on: 11/12/2024 08:56 AM EDT
--- NOTE | 2024-11-12 08:49 | A.OFFVIS_ITS ---
Vital Signs 11/12/24 08:54 Height 5 ft 4 in Weight 177 lb BMI 30.4 BP 144/72 H Blood Pressure Location Rt brachial Position Sitting Pulse 72 Pulse Source Pulse Oximeter Pulse Oximetry (%) 97 Oxygen Delivery Method Room Air Intake Visit Reasons: 10/29[facility] dehydration/Vertigo/Mult I Intake Note: Patient referred from ER dept. for vertigoPatient referred from ER dept. for vertigo Allergies pollen extracts Allergy (Verified 11/12/24 10:43) Sneezing Medication List - Last Reconciled 11/12/24 by Camilla Justin MD ascorbic acid (vitamin C) (Vitamin C) 250 mg PO DAILY blood-glucose meter (FreeStyle [place] Lite kit) Test twice a day [freestyle freedom lite test strips As directed] lancets (FreeStyle Lancets) TEST TWICE A DAY DIRECTED lisinopril 10 mg PO DAILY lorazepam 0.5 mg PO BEDTIME PRN meclizine 25 mg PO TID PRN metformin 500 mg PO BID multivitamin 1 tab PO DAILY ondansetron 4 mg PO Q8H PRN pantoprazole 40 mg PO QAM simvastatin 5 mg PO BEDTIME verapamil ER 120 mg PO DAILY vitamin B complex 1 tab PO DAILY vitamin E 268 mg PO DAILY HPI Comments Details: 59y/o Right handed male comes for evaluation of dizziness, difficulty walking , slowness of movement etc. In May 2024 he had dizziness and went to ER- was told it was possibly vertigo and was started on Melcizine. September 04 2024 he woke up with chest pain- he was diagnosed with GERD and dehydration.He was also dizzy at that time , felt like his body was not steady in space. He also has nausea and has lost 30lbs since August 2024. He has been off balance since August 2024 - with recent worsening in the past 3 days . He reports that his vision is blurred and he feels his eyes are crossed. He needs assistance in walking . No falls. No tinnitus or loss of hearing . No numbness or weakness. He has ALFREDA on CPAP and is compliant - . He was seen by Dr. Hernandez for dizziness . Since August he has been to ER 3 times for dizziness. He tried vestibular therapy and his dizziness worsened.He also reports headaches when he has dizziness.The headaches are frontal pressure with light and noise sensitivty . PENDING SALE TO [facility] Medical History (Updated 11/12/24 @ 15:20 by Camilla Justin MD) Vertigo Low testosterone level in male Positive CHRIS (antinuclear antibody) Nausea Elevated ferritin level Abdominal pain Class 1 obesity with body mass index (BMI) of 32.0 to 32.9 in adult Sleep apnea Meniere disease Fatigue Neck pain Dizziness Diabetes mellitus Hyperlipidemia Hypertension Dermatitis associated with moisture Surgical History H/O endoscopy H/O colonoscopy (~10/20/24) No pertinent past surgical history Family History Father Leukemia Social History Household Members: Significant Other and Children Housing: House Alcohol intake: never Patient Tobacco Use Status: Never used Tobacco Smoked in Last 30 Days: No e-Cigarette/Vaping Use: Never Used Second Hand Smoke Exposure: No Use of substances other than those prescribed or required for medical reasons: No Advance Directives: Yes Advance Directives on File: Yes Advance Directives Date on File: 06/15/24 service: No Current occupational status: retired Cognitive needs: No Hearing needs: No Vision needs: Yes (GLasses) Physical Exam Vital Signs: Last Vital Signs Pulse 72 11/12/24 08:54 BP 144/72 H 11/12/24 08:54 Pulse Ox 97 11/12/24 08:54 Oxygen Delivery Method Room Air 11/12/24 08:54 BMI result Body Mass Index 30.4 Const General: cooperative and comfortable Nutritional Appearance: overweight Orientation/consciousness: patient oriented x3 Eyes Pupils: Equal, round and reactive pupils present Neuro Other: feels dizzy- gait off balance Harley end gaze nystagmus on end gaze General: patient oriented x3, tone normal, moves all extremities and no focal motor deficits Cranial nerves: Yes Equal, round and reactive pupils present, Yes Bilaterally intact EOM present, Yes Nystagmus not present, Yes Normal facial strength present, Yes Midline tongue present, Yes Symmetric palate elevation present and Yes Ability to bilaterally elevate shoulders present Cognition (Neuro): normal cognition Motor exam (neuro): 5/5 motor strength present throughout and Normal motor muscle tone present throughout Deep tendon reflexes (DTR's): Right triceps reflex intensity grade: 1+, Left triceps reflex intensity grade: 1+, Rt Biceps (C5, C6): 1+, Left biceps reflex intensity grade: 1+, Right brachioradialis reflex intensity grade: 1+, Left brachioradialis reflex intensity grade: 1+, Right patellar reflex intensity g rade: 1+ and Left patellar reflex intensity grade: 1+ Coordination: [id number] test normal Assessment & Plan Assessment & Plan (1) Vertigo: Comment: ? vestibular migraine ? menieres Code(s): R42 - Dizziness and giddiness Category: Medical Plan I will trial him on verapramil XR 120 mg qd for prophylaxis of vestibular migraine suggested to start lorazepam 0,5mg qhs ENT follow up Restart pantaprazole 40mg qd Call PCP about left leg pain and swelling compliance with CPAP discussed . Medications: New verapamil ER 120 mg PO DAILY 30 caps 6RF Coding Level of Care Code New Pt Level 4 (03165) Complex EM visit Add On G2211 Diagnoses Vertigo R42
[2024-11-12 08:54] VITALS: BP 144/72; PULSE 72; O2SAT 97; BMI 30.4
--- OUTSIDE RECORDS SUMMARY | 2024-11-12 08:56 | XMS_ITS | Clinical Summary ---
Author Organization [facility] Address [address] [place] [address] Phone Care Team Providers Care Teacher Advisor Name Role Phone Avel Vee MD Primary Care Provider [phone] Allergies No known active allergies Medications sucralfate (CARAFATE) 100 mg/mL suspension Take 10 mL (1 g total) by mouth 4 (four) times a day (before meals and nightly). 1200 mL 09/28/2024 Encounters Date Type Department Care Team Description 2024 12:48 PM EDT - 2024 9:09 PM EDT Emergency [facility] Emergency [address] [place] [address] Justin Ovalle MD Gastritis without [...] adenopathy. Abdominal aorta is normal caliber with [id number] calcific athero sclerosis. Bowel loops reveal no [...] adenopathy. Abdominal aorta is normal caliber with [id number] calcific athero sclerosis. Bowel loops reveal no [...] Signed Date: 2024 15:43 ET Workstation ID: [id number] Transcribed By: Self Edit Transcribed Date: 2024 [...] Signed Date: 2024 15:43 ET Workstation ID: [id number] Transcribed By: Self Edit Transcribed Date: 2024 [...] Signed Date: 2024 15:54 ET Workstation ID: [id number] Transcribed By: Self Edit Transcribed Date: 2024 [...] Signed Date: 2024 15:54 ET Workstation ID: [id number] Transcribed By: Self Edit Transcribed Date: 2024 [...] g/dL [facility] Hematocrit 44.2 42.0 - 54.0 % LAB HEMETOLOGY METHOD 2024 12:31 PM EDT [facility] MCV 89.1 79.0 - 98.0 FL LAB [facility]24 12[facility] MCH 29.8 27.0 - 32.0 pcg LAB HEMETOLOGY METHOD 2024 12:31 PM [facility] MCHC 33.5 32.0 - 37.0 g/dL LAB [facility]ETOLOGY [facility] 2024 12:[facility] RDW 12.1 11.0 - 15.0 % LAB HEMETOLOGY METHOD 2024 12:31 PM [facility] Platelets 353 130 - 400 K/mcL LAB HEMETOLOGY METHOD 2024 12:31 PM [facility] MPV 9.6 7.0 - 11.0 FL LAB HEMETOLOGY METHOD 2024 12:31 PM [facility] NRBC 0.0 <1.0 % LAB HEMETOLOGY METHOD 2024 12:31 PM [facility] NRBC Absolute 0.00 <0.10 K/mcL LAB HEMETOLOGY METHOD 2024 12:31 PM [facility] Neutrophils Relative 64.4 % LAB HEMETOLOGY METHOD 2024 12:31 PM [facility] Lymphocytes Relative 24.9 % LAB HEMETOLOGY METHOD 2024 12:31 PM [facility] Monocytes Relative 9.6 % LAB HEMETOLOGY METHOD 2024 12:31 PM [facility] Eosinophils Relative 0.6 % LAB HEMETOLOGY METHOD 2024 12:31 PM [facility] Basophils Relative 0.3 % LAB HEMETOLOGY METHOD 2024 12:31 PM [facility] Immature Granulocytes Relative 0.2 % LAB HEMETOLOGY METHOD 2024 12:31 PM [facility] Neutrophils Absolute 5.56 1.50 - 7.00 K/mcL LAB HEMETOLOGY METHOD 2024 12:31 PM [facility] Lymphocytes Absolute 2.15 1.00 - 5.00 K/mcL LAB HEMETOLOGY METHOD 2024 12:31 PM [facility] Monocytes Absolute 0.83 0.20 - 1.00 K/mcL LAB HEMETOLOGY METHOD 2024 12:31 PM EDT [facility] Eosinophils Absolute 0.05 0.00 - 0.50 K/[facility] LAB HEMETOLOGY METHOD 2024 12:31 PM EDT [facility] Basophils Absolute 0.03 0.00 - 0.20 K/[facility] LAB HEMETOLOGY METHOD 2024 12:31 PM EDT [facility] Immature Granulocytes Absolute 0.02 0.00 - 0.03 K/[facility] LAB HEMETOLOGY METHOD 2024 12:31 PM EDT [facility] Blood Venous blood specimen / Unknown Venipuncture / Unknown 2024 12:22 PM EDT 2024 12:29 PM EDT Justin Ovalle MD LAB BLOOD ORDERABLES Final Res ult Performing Organization Address City/[facility]/ZIP Co de Phone Number [facility] [address] [place] [address], [place] [phone] * Magnesium (2024 12:22 PM EDT) [facility] Magnesium 2.1 1.9 - 2.6 mg/dL LAB CHEMISTRY METHOD 2024 1:03 PM EDT [facility] Blood Venous blood specimen / Unknown Venipuncture / Unknown 2024 12:22 PM EDT 2024 12:29 PM EDT us Justin Ovalle MD LAB BLOOD ORDERABLES Final Res ult Performing Organization Address City/[facility]/ZIP Co de Phone Number [facility] [address] [place] [address], [place] [phone] * (ABNORMAL) Hepatic function panel (2024 12:22 PM EDT) [facility] Total Protein 8.1(H) 6.0 - 8.0 g/dL LAB CHEMISTRY METHOD 2024 2:41 PM EDT [facility] Albumin 4.2 3.2 - 5.0 g/dL LAB CHEMISTRY METHOD 2024 2:41 PM [facility] Total Bilirubin 0.8 0.0 - 1.4 mg/dL LAB CHEMISTRY METHOD 2024 2:41 PM T [facility] Bilirubin, Direct 0.2 0.0 - 0.3 mg/dL LAB CHEMISTRY METHOD 2024 2:41 PM [facility] Bilirubin, Indirect 0.6 0.0 - 1.1 mg/dL LAB CHEMISTRY METHOD 2024 2:41 PM [facility] ALT (SGPT) 53 10 - 60 unit/L LAB CHEMISTRY METHOD 2024 2:41 PM [facility] AST (SGOT) 23 10 - 42 unit/L LAB CHEMISTRY METHOD 2024 2:41 PM [facility] Alkaline Phosphatase 65 42 - 121 unit/L LAB CHEMISTRY METHOD 2024 2:41 PM [facility] Blood Venous blood specimen / Unknown Venipuncture / Unknown 2024 12:22 PM EDT 2024 12:29 PM EDT us Justin Ovalle MD LAB BLOOD ORDERABLES Final Res ult [facility] [address] [place] [address], * (ABNORMAL) Basic metabolic panel (2024 12:22 PM EDT) [facility] Sodium 132(L) 133 - 145 mmol/L LAB CHEMISTRY METHOD 2024 1:03 PM [facility] Potassium 4.8 3.5 - 5.5 mmol/L LAB CHEMISTRY METHOD 2024 1:03 PM [facility] Chloride 100 96 - 110 mmol/L LAB CHEMISTRY METHOD 2024 1:03 PM [facility] CO2 26 21 - 32 mmol/L LAB CHEMISTRY METHOD 2024 1:03 PM [facility] Anion Gap 6 3 - 11 LAB CHEMISTRY METHOD 2024 1:03 PM [facility] Glucose 119(H) 70 - 100 mg/dL LAB CHEMISTRY METHOD 2024 1:03 PM [facility] BUN 18 5 - 25 mg/dL LAB CHEMISTRY METHOD 2024 1:03 PM [facility] Creatinine 1.00 0.70 - 1.30 mg/dL LAB CHEMISTRY METHOD 2024 1:03 PM [facility] eGFR 86 >=60 mL/min/1. 73m2 LAB CHEMISTRY METHOD 2024 1:03 PM [facility] Comment:Calculation based on the Chronic Kidney Disease Epidemiology Collaboration (CKD-EPI) equation refit without adjustment for race. BUN/Creatinine Ratio 18.0 LAB CHEMISTRY METHOD 2024 1:03 PM [facility] Calcium 9.6 8.5 - 10.5 mg/dL LAB CHEMISTRY METHOD 2024 1:03 PM [facility] Blood Venous blood specimen / Unknown Venipuncture / Unknown 2024 12:22 PM EDT 2024 12:29 PM EDT us Justin Ovalle MD LAB BLOOD ORDERABLES Final Res ult [facility] [address] [place] [address], * ECG 12 lead (2024 12:16 PM EDT) Ventricular Rate ECG 61 BPM GEMUSE Atrial Rate 61 BPM GEMUSE P-R Interval 154 ms GEMUSE QRS Duration 90 ms GEMUSE Q-T Interval 392 ms GEMUSE QTc 394 ms GEMUSE P Wave [place] -7 degrees GEMUSE R [place] 1 degrees GEMUSE T [place] -2 degrees GEMUSE ECG Interpretation Normal sinus rhythm Normal ECG No previous ECGs available Confirmed by GERTRUDIS LANDIN ([id number]) on 2024 9:02:44 PM GEMUSE 2024 12:1 6 PM EDT 2024 9:02 PM EDT us Justin Ovalle MD ECG ORDERABLES Final Result GEMUSE from Last 3 Months Insurance [facility] Care Teams Teacher Advisor Relationship Specialty Start Date End Date Avel Vee MD PCP - General Internal Medicine 09/27/24
--- OUTSIDE RECORDS SUMMARY | 2024-11-12 08:56 | XMS_ITS | Clinical Summary ---
Author Organization [facility] Address [address] [place] [address] Care Team Providers Care Process Stripper Name Role Phone Unavailable Primary Care Provider [...] Imm-Zoster, Recombinant (1 o f 2) 2014 [id number] ( season) 2024 08/23/2020, 07/26/2020 Imm-Influenza (#1) 2024 04/05/2020, 03/29/2019 Alcohol and Drug Screen 05/13/2024 Depression Annual Screen 05/13/2024 Imm-Hepatitis B Aged Out No longer el igible based on patient's age to complete this topic Insurance [employer] CROSS/[employer]
== END 2024-11-12 09:59 | disposition home or self-care (01) ==
LOC: HO.HSMS 08:49
PROVIDERS: PCP Internal Medicine; Visit Provider Psychiatry & Neurology Neurology
DX: R42 Dizziness and giddiness (principal)
CPT/HCPCS: 99204

== ENCOUNTER 2024-11-12 10:20 | Emergency (ER) | payer BC, SELFPAY ==
--- NOTE | ~2024-11-12 | US_ITS ---
EXAMINATION: US LOWER EXTREMITY VEINS LIMITED FOLLOW UP LEFT HISTORY: calf pain/swelling COMPARISON: There are no prior studies available for comparison. TECHNIQUE: Duplex and color Doppler sonographic examination of the deep venous system of the left lower extremity was performed. FINDINGS: There is a duplicated system. The common femoral vein is patent. There is partial thrombosis of the midportion of one of the femoral veins which is noncompressible. The popliteal vein is patent. There is also thrombosis of the peroneal veins. 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 Electronically signed by: Praveen Perez MD 11/12/2024 12:13 PM EDT
[2024-11-12 10:41] VITALS: BP 134/56; PULSE 64; RESP 20; O2SAT 97; BMI 30.2
--- NOTE | 2024-11-12 10:57 | ED.EXTPRO ---
HPI - Extremity Problem General Chief complaint: Extremity Problem Stated complaint: Pain/swelling L calf Time Seen by Provider: 11/12/24 10:56 Source: patient Mode of arrival: ambulatory Limitations: no limitations History of Present Illness ED Provider: TATYANA MAYNARD PA-C HPI Narrative: 59 year old male with pmhx significant for HTN, HLD, DM presents to the ED today for evaluation of left calf pain x2 weeks. Pain is localized to left calf, no radiation. Patient's states that patient has been more sedentary recently. He was recently diagnosed with Meniere's disease. He has been following with a neurologist, last saw them yesterday. Reports decreased activity due to this new diagnosis. His also reports recent flight to/from [place] 3 months ago. No history of VTE. No history of coagulation disorders. He is not currently on anticoagulation. No injury or trauma to the left lower extremity. He denies fever, chills, chest pain, palpitations, shortness of breath, cough, hemoptysis. His also reports that patient has been increasingly more fatigued. Reports recent normal colonoscopy. He has also followed up with Hematology regarding this, noted to have low iron levels. He also has a follow up scheduled with his urologist to check his prostate and was recently noted to have low testosterone levels. She is requesting that patient be tested for Lyme as well. Denies any recent tick or insect bites. Denies night sweats, rashes, fevers. Related Data Home Medications ?Medication ?Instructions ?Recorded ?Confirmed ascorbic acid (vitamin C) 250 mg 250 mg PO DAILY 06/11/24 11/12/24 tablet (Vitamin C) multivitamin 1 tab PO DAILY 06/11/24 11/12/24 vitamin B complex 1 tab PO DAILY 06/11/24 11/12/24 vitamin E 268 mg (400 unit) capsule 268 mg PO DAILY 06/11/24 11/12/24 pantoprazole 40 mg tablet,delayed 40 mg PO QAM 11/11/24 11/12/24 release lorazepam 0.5 mg tablet 0.5 mg PO BEDTIME PRN anxiety 11/12/24 11/12/24 Previous Rx's ?Medication ?Instructions ?Recorded blood-glucose meter (FreeStyle #1 ea 12/09/23 Berthold Lite kit) freestyle freedom lite test strips #1 ea 12/09/23 metformin 500 mg tablet 500 mg PO BID #180 tabs 06/05/24 lisinopril 10 mg tablet 10 mg PO DAILY #90 tabs 09/17/24 simvastatin 5 mg tablet 5 mg PO BEDTIME #90 tabs 09/18/24 meclizine 25 mg tablet 25 mg PO TID PRN dizziness #14 tabs 10/26/24 lancets 28 gauge (FreeStyle #100 ea 11/02/24 Lancets) ondansetron 4 mg disintegrating 4 mg PO Q8H PRN nausea and 11/02/24 tablet vomiting #20 tabs apixaban 5 mg (74 tabs) tablets in 5 mg PO BID #74 ea 11/12/24 a dose pack (FI[place]DS [place] DVT-PE Treat 30D Start) verapamil 120 mg 24 hr 120 mg PO DAILY #30 caps 11/12/24 capsule,extended release Allergies Allergy/AdvReac Type Severity Reaction Status Date / Time pollen extracts Allergy Sneezing Verified 11/12/24 10:43 Review of Systems Review of Systems: Constitutional: No fever, chills, fatigue, night sweats, weight changes ENT/Mouth: No ear pain, hearing loss, nasal congestion, sinus pain, rhinorrhea, sore throat Eyes: No eye pain, swelling, redness, vision changes, discharge Cardio: No chest pain, palpitations, SMITH, orthopnea, peripheral edema Pulm: No SOB, cough, sputum, wheezing, dyspnea, hemoptysis GI: No nausea, vomiting, hematemesis, abdominal pain, diarrhea, constipation, hematochezia, melena : No irregular bleeding, dysuria, frequency, urgency, hesitancy, hematuria, flank pain, urinary flow changes, urinary incontinence or retention MSK: No back pain, neck pain, joint pain, myalgias, +L calf pain Skin: No lesions, rashes Neuro: No weakness, numbness, paresthesias, LOC, dizziness, headache Psych: No anxiety/panic, depression, SI/HI, AH/VH All other systems reviewed and are negative. [facility], [facility] Past Medical History Attestation statement: The following information was validated with the patient. Source: old records reviewed and nursing notes reviewed Medical History Low testosterone level in male Positive CHRIS (antinuclear antibody) Nausea Elevated ferritin level Abdominal pain Class 1 obesity with body mass index (BMI) of 32.0 to 32.9 in adult Sleep apnea Meniere disease Fatigue Neck pain Dizziness Diabetes mellitus Hyperlipidemia Hypertension Dermatitis associated with moisture Surgical History H/O endoscopy H/O colonoscopy (~10/20/24) No pertinent past surgical history Family History Family History Father Leukemia Social History Social History Household Members: Significant Other and Children Housing: House Alcohol intake: never Patient Tobacco Use Status: Never used Tobacco Smoked in Last 30 Days: No e-Cigarette/Vaping Use: Never Used Second Hand Smoke Exposure: No Use of substances other than those prescribed or required for medical reasons: No Advance Directives: Yes Advance Directives on File: Yes Advance Directives Date on File: 06/15/24 service: No Current occupational status: retired Cognitive needs: No Hearing needs: No Vision needs: Yes (GLasses) Physical Exam Vital Signs: Vital Signs: Last Vital Signs Temp 98.9 F 11/12/24 14:15 Pulse 64 11/12/24 14:15 Resp 20 11/12/24 14:15 BP 134/56 L 11/12/24 14:15 Pulse Ox 97 11/12/24 14:15 O2 Del Method Room Air 11/12/24 14:15 BMI result Body Mass Index 30.2 vital signs stable General: Well appearing, in no acute distress. Skin: Warm, dry, intact. No rashes or lesions. Head: Normocephalic, atraumatic. EENT: Hearing is intact b/l. Conjunctiva clear. PERRLA. EOM intact. Moist mucous membranes.? Neck: Supple without LAD Cardiac: Chest wall symmetric. RRR Lungs: Normal respiratory effort without accessory muscle use. CTA bilaterally. No rales, rhonchi, or wheezes.? Abdomen: Soft, non-tender, non-distended. No rebound tenderness or guarding. Positive BS x4. Back: No midline spinous or paraspinal tenderness. No step off deformity. Ext: +no overlying skin changes/swelling noted to left lower extremity. Exquisitely tender to palpation over left calf. Compartments soft, compressible. No warmth, crepitus, no deformity. 2+ DP/PT pulse intact. Sensation intact distally. Ambulating with steady gait. Neuro: AOx3. Normal speech. Course Course Course Narrative: CBC without leukocytosis or left shift. No anemia. H&H stable. Chemistry without acute electrolyte abnormality requiring intervention. No ENEIDA. Liver function WNL. BNP WNL. 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 lyme testing pending. > above findings discussed with patient and his . > I was informed that during blood draw, x ray technician sustained a needle stick injury with used needle. I discussed this incident with patient and his . Patient denies any known history of hepatitis or HIV. He is agreeable to having these labs drawn. Order placed. > Spoke with vascular surgeon, Dr. Wagner - Recommending Eliquis starter pack with outpatient follow-up. I feel this is reasonable. Discussed with patient and his . Eliquis sent to pharmacy. Stressed the importance of outpatient follow-up as he will likely need further refills of this medication. Patient has remained stable throughout ED visit today. Discussed worrisome signs and symptoms and when to return to the ED. All questions answered at this time. Patient is agreeable with disposition and stable for discharge. Medications Administered Discontinued Medications Generic Name Dose Route Start Last Admin Trade Name Freq PRN Reason Stop Dose Admin Acetaminophen 975 mg 11/12/24 13:08 11/12/24 13:28 Acetaminophen 325 Mg Tablet PO 11/12/24 13:09 Not Given ONCE ONE Medical Decision Making Medical Decision Making [facility] Narrative: 59 year old male with pmhx significant for HTN, HLD, DM presents to the ED today for evaluation of left calf pain x2 weeks. Vital signs stable. Not hypoxic or tachycardic. On exam, no overlying skin changes/swelling noted to left lower extremity. Exquisitely tender to palpation over left calf. Compartments soft, compressible. No warmth, crepitus, no deformity. 2+ DP/PT pulse intact. Sensation intact distally. Ambulating with steady gait. Differential diagnosis includes muscle spasm, MSK sprain/strain, DVT. Unlikely fracture, neurovascular compromise, threat to limb, compartment syndrome. Plan for labs, coags, venous duplex, disposition. Differential Diagnosis Differential Diagnoses: The differential diagnosis associated with the presentation includes As above Admission/Observation Not indicated Consult Healthcare Provider Management of the patient was discussed with: Animal Feeder Vascular surgeon - dr. wagner Lab Data MDM Lab Attestation statement: I reviewed the patient's lab results. as above. 11/12/24 10:54 11/12/24 10:54 Labs: Lab Results 11/12/24 11/12/24 11/12/24 Range/Units 10:54 10:58 11:01 WBC 7.4 (4.8-10.8) X10*3/uL RBC 4.75 (4.60-5.80) X10*6/uL Hgb 14.5 (14.0-18.0) g/dl Hct 41.7 L (42.0-52.0) % MCV 87.8 (80.0-98.0) fL MCH 30.5 (27.0-33.0) pg MCHC 34.8 (31.0-36.0) g/dl RDW 12.4 (11.0-16.0) % Plt Count 291 (160-400) X10*3/uL MPV 9.8 (9.4-12.4) fL Immature Gran % (Auto) 0.1 (0.0-0.4) % Neut % (Auto) 67.5 (45-73) % Lymph % (Auto) 20.1 (20-40) % [place] % (Auto) 11.2 H (2-11) % Eos % (Auto) 0.7 (0-4) % Baso % (Auto) 0.4 (0-2) % Lymph # (Auto) 1.5 (1.2-4.9) X10*3/uL [place] # (Auto) 0.8 (0.1-1.2) X10*3/uL Eos # (Auto) 0.1 (0.0-0.4) X10*3/uL Baso # (Auto) 0.0 (0.0-0.2) X10*3/uL Abs Immat Gran (auto) 0.01 (0.00-0.03) X10*3/uL Absolute Neuts (auto) 5.0 (2.0-8.3) x10*3/uL Absolute Nucleated RBC 0.000 (0.0-0.012) X10*3/uL Nucleated RBC % (auto) 0.0 (0.0-0.2) /100WBC PT (10.9-12.4) SEC INR (0.9-1.1) APTT (26.0-36.8) SEC Hold Blue Top SEE NOTE Sodium 136 (135-145) mmol/L Potassium 4.4 (3.3-5.1) mmol/L Chloride 100 (96-108) mmol/L Carbon Dioxide 28 (22-29) mmol/L Anion Gap 12 (12-20) BUN 10 (9-16) mg/dL Creatinine 0.86 (0.5-1.4) mg/dL Estim Creat Clear Calc 87.1 Estimated GFR > 60 Random Glucose 100 (60-115) mg/dL Calcium 9.5 (8.4-10.2) mg/dL Total Bilirubin 0.9 (0.0-1.0) mg/dL AST 21 (5-37) U/L ALT 28 (0-40) U/L Alkaline Phosphatase 57 (39-117) U/L B-Natriuretic Peptide 18 (<100) pg/mL Total Protein 7.4 (6.5-8.0) g/dL Albumin 4.5 (3.5-5.0) g/dL 11/12/24 Range/Units 13:14 WBC (4.8-10.8) X10*3/uL RBC (4.60-5.80) X10*6/uL Hgb (14.0-18.0) g/dl Hct (42.0-52.0) % MCV (80.0-98.0) fL MCH (27.0-33.0) pg MCHC (31.0-36.0) g/dl RDW (11.0-16.0) % Plt Count (160-400) X10*3/uL MPV (9.4-12.4) fL Immature Gran % (Auto) (0.0-0.4) % Neut % (Auto) (45-73) % Lymph % (Auto) (20-40) % [place] % (Auto) (2-11) % Eos % (Auto) (0-4) % Baso % (Auto) (0-2) % Lymph # (Auto) (1.2-4.9) X10*3/uL [place] # (Auto) (0.1-1.2) X10*3/uL Eos # (Auto) (0.0-0.4) X10*3/uL Baso # (Auto) (0.0-0.2) X10*3/uL Abs Immat Gran (auto) (0.00-0.03) X10*3/uL Absolute Neuts (auto) (2.0-8.3) x10*3/uL Absolute Nucleated RBC (0.0-0.012) X10*3/uL Nucleated RBC % (auto) (0.0-0.2) /100WBC PT 14.6 H (10.9-12.4) SEC INR 1.3 H (0.9-1.1) APTT 31.9 (26.0-36.8) SEC Hold Blue Top Sodium (135-145) mmol/L Potassium (3.3-5.1) mmol/L Chloride (96-108) mmol/L Carbon Dioxide (22-29) mmol/L Anion Gap (12-20) BUN (9-16) mg/dL Creatinine (0.5-1.4) mg/dL Estim Creat Clear Calc Estimated GFR Random Glucose (60-115) mg/dL Calcium (8.4-10.2) mg/dL Total Bilirubin (0.0-1.0) mg/dL AST (5-37) U/L ALT (0-40) U/L Alkaline Phosphatase (39-117) U/L B-Natriuretic Peptide (<100) pg/mL Total Protein (6.5-8.0) g/dL Albumin (3.5-5.0) g/dL Independent Interpretation I performed an independent interpretation of an: Ultrasound Interpretation: Venous duplex left lower extremity showing clot to left femoral vein Radiology Impression Discussion of test interpretation with radiology: I have reviewed the radiologist's reading. Radiologist Impression: Procedure(s): US venous duplex LE Accession Number(s): [id number] cc: Tatyana Maynard; Avel Vee MD~ EXAMINATION: US LOWER EXTREMITY VEINS LIMITED FOLLOW UP LEFT HISTORY: calf pain/swelling COMPARISON: There are no prior studies available for comparison. TECHNIQUE: Duplex and color Doppler sonographic examination of the deep venous system of the left lower extremity was performed. FINDINGS: There is a duplicated system. The common femoral vein is patent. There is partial thrombosis of the midportion of one of the femoral veins which is noncompressible. The popliteal vein is patent. There is also thrombosis of the peroneal veins. 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 Electronically signed by: Praveen Perez MD 11/12/2024 12:13 PM EDT RP Independent Historian Clinical information obtained from an independent historian. History obtained from or confirmed by: Spouse () External Record Review External record reviewed: Inpatient record, Office record, Outpatient record and Prior outpatient labs Prescription Management I considered prescription management with: Other (eliquis) Chronic Conditions Patient?s care impacted by: Hypertension Social Determinants Patient?s care significantly limited by Social Determinants of Health including: Other Social Determinant of Health Critical Care Time Critical Care Time Critical Care Time: No Discharge Plan Discharge Clinical Impression: Deep vein thrombosis (DVT) of femoral vein Qualifiers: Chronicity: acute Laterality: left Qualified Code(s): I82.412 - Acute embolism and thrombosis of left femoral vein Patient Disposition: Home, Self-Care Instructions: Apixaban (By mouth) (Eliquis), Deep Vein Thrombosis (ED) Additional Instructions: You were evaluated in the ED today for left calf pain. Your blood work is reassuring. The ultrasound of your left leg shows a deep venous clot in your femoral vein. I am starting you on a blood thinner (Eliquis). I have sent a starter pack to your pharmacy. Take this as prescribed over the next month. You will need to follow up with your primary care provider for subsequent refills as you will need to be on this medication for at least 3 months. You were also tested for Lyme disease today. These results with take a few days to come back. You will be contacted with any results that require treatment. Keep your outpatient follow up appointments. I have also provided you with a referral to the vascular surgeon, Dr. Wagner. You may call his office to establish care, they will not call you. Return with any new or worsening symptoms. In the case of an emergency call 911. Prescriptions: [place] DVT-PE Treat 30D Start 5 mg (74 tabs) tablets,dose pack 5 mg PO BID Qty: 74 0RF Rx Instructions: Take 10 mg twice a day for 7 days, then 5 mg twice a day for 23 days No Action (DME) blood-glucose meter [FreeStyle Berthold Lite] Kit See Rx Instructions .Route Qty: 1 0RF Rx Instructions: Test twice a day (DME) freestyle freedom lite test strips See Rx Instructions .Route .MEDSUPPLY Qty: 1 0RF Rx Instructions: As directed metformin 500 mg tablet 500 mg PO BID Qty: 180 1RF simvastatin 5 mg tablet 5 mg PO BEDTIME Qty: 90 1RF ondansetron 4 mg tablet,disintegrating 4 mg PO Q8H PRN (Reason: nausea and vomiting) Qty: 20 0RF (DME) lancets [FreeStyle Lancets] 28 gauge misc See Rx Instructions .ROUTE .COMPLEX Qty: 100 0RF Dose Instruction: TEST TWICE A DAY DIRECTED Rx Instructions: TEST TWICE A DAY DIRECTED meclizine 25 mg tablet 25 mg PO TID PRN (Reason: dizziness) Qty: 14 0RF multivitamin Tablet 1 tab PO DAILY ascorbic acid (vitamin C) [Vitamin C] 250 mg Tablet 250 mg PO DAILY vitamin B complex Tablet 1 tab PO DAILY vitamin E 268 mg (400 unit) Capsule 268 mg PO DAILY pantoprazole 40 mg tablet,delayed release (DR/EC) 40 mg PO QAM lisinopril 10 mg tablet 10 mg PO DAILY Qty: 90 1RF lorazepam 0.5 mg tablet 0.5 mg PO BEDTIME PRN (Reason: anxiety) verapamil 120 mg capsule,ext rel. pellets 24 hr 120 mg PO DAILY Qty: 30 6RF Referrals: Avel Vee MD [Primary Care Provider, Internal Medicine] Interventions: ED Discharge Assessment Last Done: 11/12/24 14:15 Discharge Date/Time: 11/12/24 14:16 Print Language: Amharic
[2024-11-12 11:06] LABS: MANUAL DIFF FLAG NO
[2024-11-12 11:23] LABS: Hematocrit 41.7 % (42.0-52.0); Hemoglobin 14.5 g/dl (14.0-18.0); Imm Gran Abs Auto 0.01 X10*3/uL (0.00-0.03); Imm Gran Pct Auto 0.1 % (0.0-0.4); Lymphocytes Absolute Auto 1.5 X10*3/uL (1.2-4.9); Mean Corpuscular HGB Conc 34.8 g/dl (31.0-36.0); Mean Corpuscular Hemoglobin 30.5 pg (27.0-33.0); Mean Corpuscular Volume 87.8 fL (80.0-98.0); NRBC Abs Auto 0.000 X10*3/uL (0.0-0.012); NRBC Pct Auto 0.0 /100WBC (0.0-0.2); Platelet Count 291 X10*3/uL (160-400); Red Blood Count 4.75 X10*6/uL (4.60-5.80); White Blood Count 7.4 X10*3/uL (4.8-10.8)
[2024-11-12 11:28] LABS: Alanine Aminotransferase 28 U/L (0-40); Albumin Level 4.5 g/dL (3.5-5.0); Alkaline Phosphatase 57 U/L (39-117); Anion Gap 12 (12-20); Aspartate Amino Transferase 21 U/L (5-37); Blood Urea Nitrogen 10 mg/dL (9-16); Calcium 9.5 mg/dL (8.4-10.2); Carbon Dioxide 28 mmol/L (22-29); Chloride 100 mmol/L (96-108); Creatinine Clr Calc Pharmacy 87.1; Estimated Glomerular Filt Rate > 60; Potassium 4.4 mmol/L (3.3-5.1); Sodium 136 mmol/L (135-145); Total Protein 7.4 g/dL (6.5-8.0)
[2024-11-12 11:33] LABS: B Type Natriuretic Peptide 18 pg/mL (<100)
[2024-11-12 13:25] LABS: INTERNATIONAL NORM RATIO 1.3 (0.9-1.1); Prothrombin Time 14.6 SEC (10.9-12.4)
[2024-11-12 13:27] LABS: Partial Thromboplastin Time 31.9 SEC (26.0-36.8)
[2024-11-12 14:15] VITALS: BP 134/56; PULSE 64; RESP 20; TEMP 37.2; O2SAT 97
[2024-11-13 04:04] LABS: HBS Num1 0.47 mIU/mL (0-7.99); HBc Num1 0.05 S/CO (0.00-0.79); HBsAGNum1 0.30 S/CO (0.00-0.99); HIV Num 1 0.05 S/CO (0.00-0.99); Hepatitis A Antibody IgM 0.42 Index (0-0.79); Hepatitis B Surface Antigen Negative (Negative); ~HepC Num1 0.08 S/CO (0.00-0.79); ~Hepatitis A Antibody IgM Nonreactive (Nonreactive); ~Hepatitis B Surface Antibody NONREACTIVE (Nonreactive); ~Hepatitis C Antibody Nonreactive (Nonreactive)
[2024-11-17 09:48] LABS: Lyme Abs Screen <0.90 index
== END 2024-11-12 14:16 | disposition home or self-care (01) ==
PROVIDERS: Physician Assistant Medical; Emergency Provider Emergency Medicine Emergency Medical Services; PCP Internal Medicine
DX: I82.412 Acute embolism and thrombosis of left femoral vein (principal); M79.662 Pain in left lower leg; I10 Essential (primary) hypertension; R60.0 Localized edema; E11.9 Type 2 diabetes mellitus without complications; Z79.899 Other long term (current) drug therapy
CPT/HCPCS: 36415; 80053; 83880; 85025; 85610; 85730; 86617; 86618; 86704; 86706; 86709; 86803; 87340; 87389; 93971; 99283; 99284

== ENCOUNTER → 2024-11-12 11:21 | Outpatient (BNV) | payer BC, SELFPAY | PROVIDERS: Emergency Provider Emergency Medicine Emergency Medical Services; PCP Internal Medicine; Visit Provider Radiology Diagnostic Radiology | DX: I82.412 Acute embolism and thrombosis of left femoral vein (principal); I82.452 Acute embolism and thrombosis of left peroneal vein | CPT/HCPCS: 93971 ==

== ENCOUNTER → 2024-11-15 09:40 | Outpatient (BNV) | payer BC, SELFPAY | PROVIDERS: Emergency Provider Emergency Medicine; PCP Internal Medicine; Visit Provider Radiology Diagnostic Radiology | DX: I26.99 Other pulmonary embolism without acute cor pulmonale (principal); G93.89 Other specified disorders of brain; R07.89 Other chest pain; R06.02 Shortness of breath | CPT/HCPCS: 70450; 71045; 71275 ==

== ENCOUNTER 2024-11-15 10:09 | Emergency (ER) | payer BC, SELFPAY ==
--- NOTE | ~2024-11-15 | CT_ITS ---
CLINICAL HISTORY: imbedded D-dimer, chest pain, +DVT CT angiography chest with contrast. 3D Postprocessing. Comparison: CT - CT ANGIO CHEST PE PROTOCOL - 11/15/24 11:19 EDT Findings: There are mild coronary artery calcifications. There may be right heart strain. Unremarkable thoracic aorta and great vessels. No aneurysm. Pulmonary emboli are noted in right lower lobe segmental and subsegmental branches. The visualized thyroid and mediastinum are unremarkable. No consolidation or effusion. The visualized upper abdomen is unremarkable. No acute fractures. IMPRESSION: 1. Pulmonary emboli are noted in right lower lobe segmental and subsegmental branches. 2. There may be right heart strain. This document has been electronically signed by: Tarun Sorensen MD on 11/15/2024 12:54:51
--- NOTE | ~2024-11-15 | CT_ITS ---
CLINICAL HISTORY: headache CT head without contrast. COMPARISON: MR brain dated 06/11/24 at 17:08 EST FINDINGS: Increased hyperattenuation along the pineal gland measuring in total approximately 2.1 x 2.6 x 2.6 cm. There is mild enlargement of the lateral ventricles particularly along the temporal horns, increased from prior imaging suggesting a component of obstruction. Nodular intraventricular hyperattenuating lesion present within the posterior horn of the left lateral ventricle measuring approximately 2.3 x 2.2 x 2.7 cm. Nodular area of increased attenuation along the vermis adjacent to the 4th ventricle measuring in total approximately 2.3 x 1.9 x 2.6 cm. No extra-axial fluid collection or definite intracranial hemorrhage. No calvarial fracture. Mastoid air cells and paranasal sinuses are clear. IMPRESSION: 1. Hyperattenuating lesions present along the pineal gland, in the posterior horn of the left lateral ventricle and along the vermis adjacent to the 4th ventricle. There is mild enlargement of the lateral ventricles suggesting a component of obstructive hydrocephalus. These are new since prior imaging and are suspicious for metastatic disease. Recommend correlation with clinical history. This document has been electronically signed by: Jah Childs MD on 11/15/2024 14:46:37
--- NOTE | ~2024-11-15 | XR_ITS ---
CLINICAL HISTORY: chest tightness sob 1 view chest x-ray Comparison: None provided Findings: The lungs are clear. Heart size is normal. No acute fracture. IMPRESSION: 1. No acute findings. This document has been electronically signed by: Tarun Sorensen MD on 11/15/2024 11:10:44
--- NOTE | 2024-11-15 10:10 | ECG_ITS ---
Test Reason : CP Blood Pressure : */* mmHG Vent. Rate : 68 BPM Atrial Rate : 68 BPM P-R Int : 142 ms QRS Dur : 80 ms QT Int : 384 ms P-R-T Axes : -4 24 11 degrees QTcB Int : 408 ms Normal sinus rhythm Normal ECG When compared with ECG of 26-Oct-2024 10:08, No significant change was found Referred By: Generic ED Physician Electronically Signed By: Manny Bright
[2024-11-15 10:25] LABS: MANUAL DIFF FLAG NO
[2024-11-15 10:26] VITALS: BP 145/70; PULSE 64; RESP 16; TEMP 36.5; O2SAT 98; BMI 30.2
[2024-11-15 10:26] LABS: Hematocrit 40.8 % (42.0-52.0); Hemoglobin 14.3 g/dl (14.0-18.0); Imm Gran Abs Auto 0.01 X10*3/uL (0.00-0.03); Imm Gran Pct Auto 0.2 % (0.0-0.4); Lymphocytes Absolute Auto 1.4 X10*3/uL (1.2-4.9); Mean Corpuscular HGB Conc 35.0 g/dl (31.0-36.0); Mean Corpuscular Hemoglobin 30.0 pg (27.0-33.0); Mean Corpuscular Volume 85.7 fL (80.0-98.0); NRBC Abs Auto 0.000 X10*3/uL (0.0-0.012); NRBC Pct Auto 0.0 /100WBC (0.0-0.2); Platelet Count 339 X10*3/uL (160-400); Red Blood Count 4.76 X10*6/uL (4.60-5.80); White Blood Count 6.3 X10*3/uL (4.8-10.8)
[2024-11-15 10:32] LABS: INTERNATIONAL NORM RATIO 2.3 (0.9-1.1); Prothrombin Time 25.9 SEC (10.9-12.4)
[2024-11-15 10:40] LABS: Alanine Aminotransferase 35 U/L (0-40); Albumin Level 4.4 g/dL (3.5-5.0); Alkaline Phosphatase 58 U/L (39-117); Anion Gap 16 (12-20); Aspartate Amino Transferase 23 U/L (5-37); Blood Urea Nitrogen 11 mg/dL (9-16); Calcium 9.6 mg/dL (8.4-10.2); Carbon Dioxide 26 mmol/L (22-29); Chloride 101 mmol/L (96-108); Creatinine Clr Calc Pharmacy 80.6; Estimated Glomerular Filt Rate > 60; Potassium 4.6 mmol/L (3.3-5.1); Sodium 138 mmol/L (135-145); Total Protein 7.4 g/dL (6.5-8.0)
[2024-11-15 10:45] LABS: Troponin-I High Sensitivity 2.9 ng/L (<3.5-35.0)
[2024-11-15 10:50] LABS: D Dimer High Sensitivity 1197 NG/ML
--- NOTE | 2024-11-15 10:51 | ED.CHESTPAIN ---
HPI - Chest Pain General Chief Complaint: Chest Pain Stated Complaint: chest tightness Time Seen by Provider: 11/15/24 10:34 Source: patient and family ( Spouse) Mode of arrival: ambulatory Limitations: no limitations History of Present Illness ED Provider: DR. Baeza HPI narrative: 59-year-old male PMH DM, HTN, fatty liver, presented with his for evaluation of chest tightness since this morning, no radiation of the chest pain, no other association of shortness of breath, no chest tightness in the ED now, patient recently diagnosed with DVT left lower extremity with start on Eliquis, patient recently was added verapamil to his lisinopril for blood pressure control. having headache, dizziness, blurry , and double vision going for 3 days on and off now. Patient was hospitalized for headache and dizziness in the past had CT/ CT angio of head and neck which was mostly unremarkable Then patient went MRI with also unremarkable. Related Data Home Medications ?Medication ?Instructions ?Recorded ?Confirmed ascorbic acid (vitamin C) 250 mg 250 mg PO DAILY 06/11/24 11/12/24 tablet (Vitamin C) multivitamin 1 tab PO DAILY 06/11/24 11/12/24 vitamin B complex 1 tab PO DAILY 06/11/24 11/12/24 vitamin E 268 mg (400 unit) capsule 268 mg PO DAILY 06/11/24 11/12/24 pantoprazole 40 mg tablet,delayed 40 mg PO QAM 11/11/24 11/12/24 release lorazepam 0.5 mg tablet 0.5 mg PO BEDTIME PRN anxiety 11/12/24 11/12/24 Previous Rx's ?Medication ?Instructions ?Recorded blood-glucose meter (FreeStyle #1 ea 12/09/23 Wishek Lite kit) freestyle freedom lite test strips #1 ea 12/09/23 metformin 500 mg tablet 500 mg PO BID #180 tabs 06/05/24 lisinopril 10 mg tablet 10 mg PO DAILY #90 tabs 09/17/24 simvastatin 5 mg tablet 5 mg PO BEDTIME #90 tabs 09/18/24 meclizine 25 mg tablet 25 mg PO TID PRN dizziness #14 tabs 10/26/24 lancets 28 gauge (FreeStyle #100 ea 11/02/24 Lancets) ondansetron 4 mg disintegrating 4 mg PO Q8H PRN nausea and 11/02/24 tablet vomiting #20 tabs apixaban 5 mg (74 tabs) tablets in 5 mg PO BID #74 ea 11/12/24 a dose pack (Eliquis DVT-PE Treat 30D Start) verapamil 120 mg 24 hr 120 mg PO DAILY #30 caps 11/12/24 capsule,extended release Allergies Allergy/AdvReac Type Severity Reaction Status Date / Time pollen extracts Allergy Sneezing Verified 11/15/24 10:28 Review of Systems Review of Systems: all other systems are reviewed and are negative Constitutional: Reports as per HPI and Reports no additional constitutional complaints Eyes: Reports as per HPI and Reports no additional eye complaints Reports system reviewed and no additional complaints, except as documented Cardiovascular: Reports as per HPI and Reports no additional cardiovascular complaints Respiratory: Reports as per HPI and Reports no additional respiratory complaints Gastrointestinal: Reports as per HPI and Reports no additional gastrointestinal complaints Genitourinary: Reports no additional female genitourinary complaints Musculoskeletal: Reports no additional musculoskeletal complaints Skin/Breast: Reports system reviewed and no additional complaints, except as docu Psychiatric: Reports no additional psychiatric complaints Endocrine: Reports no additional endocrine complaints Hematologic/Lymphatic: Reports no additional hematologic/lymphatic complaints Allergic/Immunologic: Reports no additional allergic/immunologic complaints Reports system reviewed and no additional complaints, except as documented and Reports Abnormal speech present [facility] Past Medical History Medical History Vertigo Low testosterone level in male Positive CHRIS (antinuclear antibody) Nausea Elevated ferritin level Abdominal pain Class 1 obesity with body mass index (BMI) of 32.0 to 32.9 in adult Sleep apnea Meniere disease Fatigue Neck pain Dizziness Diabetes mellitus Hyperlipidemia Hypertension Dermatitis associated with moisture Surgical History H/O endoscopy H/O colonoscopy (~10/20/24) No pertinent past surgical history Family History Family History Father Leukemia Social History Social History Household Members: Significant Other and Children Housing: House Alcohol intake: never Patient Tobacco Use Status: Never used Tobacco Smoked in Last 30 Days: No e-Cigarette/Vaping Use: Never Used Second Hand Smoke Exposure: No Use of substances other than those prescribed or required for medical reasons: No Advance Directives: Yes Advance Directives on File: Yes Advance Directives Date on File: 06/15/24 Do you have a plan to hurt others: No Plan service: No Current occupational status: retired Cognitive needs: No Hearing needs: No Vision needs: Yes (GLasses) Physical Exam Vital Signs: Vital Signs: Last Vital Signs Temp 98.2 F 11/15/24 13:33 Pulse 73 11/15/24 13:33 Resp 19 11/15/24 13:33 BP 134/62 11/15/24 13:33 Pulse Ox 97 11/15/24 13:33 O2 Del Method Room Air 11/15/24 13:33 BMI result Body Mass Index 30.2 Vital signs have been reviewed and appear to be correct. Blood pressure elevated. Heart rate normal. Respiratory rate normal. Temperature normal. Oxygen saturation normal. Appearance: Alert. Oriented X3. No acute distress. Head: Normal external exam. Normocephalic. Atraumatic. No Cerda signs noted. No raccoon eyes noted Eyes: PERRLA. EOMI. Conjunctiva and sclera normal. Eyelids normal. ENT: TM's Normal. Pharynx normal. Uvula midline. Moist mucous membranes. No trismus noted. No drooling noted. No muffled voice noted. Neck: Normal inspection. Neck supple. FROM. No adenopathy. Thyroid Normal. No meningeal signs. No neck mass noted. CVS: Normal heart rate and rhythm. Heart sound normal. No murmurs noted. Pulses normal throughout. Respiratory: No respiratory distress. Painless inspiration. Breath sounds normal. No wheezes/rales/rhonchi noted. Chest nontender. No accessory muscle usage noted or decreased air movement noted. Abdomen: Soft and nontender. Bowel sounds normal in all 4 quadrants. No distention noted. No organomegaly noted. No visible injury noted. Back: No CVA tenderness. Full range of motion noted. Skin: Skin warm and dry. Normal skin color. Normal skin turgor. No rashes/lesions/lacerations noted. Extremities: No lower extremity edema. Extremities exhibit normal range of motion. Extremities nontender. Neuro: Mental status: Normal attention, orientation, memory, and affect. Cranial nerves: Pupils are equal, round and reactive to light, EOMI, visual whittaker are fall, face is symmetric, facial sensations are normal. Motor examination normal muscle tone, strength to 4 extremities. DTR are +2, planter's are flexor. Sensory exam; normal coordination, no ataxia, gait stable. Cerebellar exam: [id number] and [id number] is normal. Extrapyramidal system: No tremors, no rigidity with normal facial expressions. Pronator drift not present NIH Stroke Scale Time: 11:02 Level of Consciousness: Alert Level of Consciousness Questions: Answers both questions correctly Level of Consciousness Commands: Performs both tasks correctly Best Gaze: Normal Visual: No visual loss Facial Palsy: Normal Motor Arm (Right): No drift Motor Arm (Left): No drift Motor Leg (Right): No drift Motor Leg (Left): No drift Limb Ataxia: Absent Sensory: Normal Best Language: No aphasia Dysarthia: Normal Course Reevaluation(s) Reevaluation #1: Male diagnosed on 11/12 with left lower extremity DVT, patient presented today with chest pain, dizziness, headache, elevated D-dimer patient had chest CTA showed right segmental pulmonary embolism with right heart strain. Head CT is showing questionable metastases versus bleed with new obstructive hydrocephalus, therefore patient is not a candidate for anticoagulation, case discussed with Dr. Johnston who recommended to transfer the patient to [facility]. The case was discussed with Dr. Love fellow at Neuro ICU at [facility] who accepted the patient to neuro ICU. Accepting physician is Dr. Rizvi. Case discussed with family who agreed on the plan. Will arrange for transportation. Time: 14:46 Medications Administered Discontinued Medications Generic Name Dose Route Start Last Admin Trade Name Freq PRN Reason Stop Dose Admin Iohexol 65 ml 11/15/24 11:33 11/15/24 11:33 Iohexol 350 Mg/Ml 100 Ml Infus..Btl IV 11/15/24 11:34 65 ml ONCE ONE Administration Medical Decision Making Differential Diagnosis Differential Diagnoses: The differential diagnosis associated with the presentation includes ( DVT, pulmonary embolism, intracranial bleed, brain metastases, hypercoagulable, electrolyte derangement, severe anemia.) Admission/Observation Consideration of admission/observation: Escalation of care including admission/observation considered Lab Data MDM Lab Attestation statement: I reviewed the patient's lab results. 11/15/24 13:32 11/15/24 10:18 Labs: Lab Results 11/15/24 11/15/24 11/15/24 Range/Units 10:18 13:03 13:32 WBC 6.3 7.7 (4.8-10.8) X10*3/uL RBC 4.76 4.70 (4.60-5.80) X10*6/uL Hgb 14.3 14.3 (14.0-18.0) g/dl Hct 40.8 L 40.3 L (42.0-52.0) % MCV 85.7 85.7 (80.0-98.0) fL MCH 30.0 30.4 (27.0-33.0) pg MCHC 35.0 35.5 (31.0-36.0) g/dl RDW 12.4 12.4 (11.0-16.0) % Plt Count 339 319 (160-400) X10*3/uL MPV 9.2 L 9.3 L (9.4-12.4) fL Immature Gran % (Auto) 0.2 (0.0-0.4) % Neut % (Auto) 65.1 (45-73) % Lymph % (Auto) 22.9 (20-40) % [place] % (Auto) 10.2 (2-11) % Eos % (Auto) 1.3 (0-4) % Baso % (Auto) 0.3 (0-2) % Lymph # (Auto) 1.4 (1.2-4.9) X10*3/uL [place] # (Auto) 0.6 (0.1-1.2) X10*3/uL Eos # (Auto) 0.1 (0.0-0.4) X10*3/uL Baso # (Auto) 0.0 (0.0-0.2) X10*3/uL Abs Immat Gran (auto) 0.01 (0.00-0.03) X10*3/uL Absolute Neuts (auto) 4.1 (2.0-8.3) x10*3/uL Absolute Nucleated RBC 0.000 0.000 (0.0-0.012) X10*3/uL Nucleated RBC % (auto) 0.0 0.0 (0.0-0.2) /100WBC PT 25.9 H D 27.4 H (10.9-12.4) SEC INR 2.3 H 2.4 H (0.9-1.1) aPTT Heparin Protocol 42.2 L (53-77.9) SEC D-Dimer High Sensitivty 1197 NG/ML Sodium 138 (135-145) mmol/L Potassium 4.6 (3.3-5.1) mmol/L Chloride 101 (96-108) mmol/L Carbon Dioxide 26 (22-29) mmol/L Anion Gap 16 (12-20) BUN 11 (9-16) mg/dL Creatinine 0.93 (0.5-1.4) mg/dL Estim Creat Clear Calc 80.6 Estimated GFR > 60 Random Glucose 101 (60-115) mg/dL Calcium 9.6 (8.4-10.2) mg/dL Total Bilirubin 0.9 (0.0-1.0) mg/dL AST 23 (5-37) U/L ALT 35 (0-40) U/L Alkaline Phosphatase 58 (39-117) U/L Troponin I High Sens 2.9 D 3.3 (<3.5-35.0) ng/L Total Protein 7.4 (6.5-8.0) g/dL Albumin 4.4 (3.5-5.0) g/dL Independent Interpretation I performed an independent interpretation of an: CT Scan ( head:1. Hyperattenuating lesions present along the pineal gland, in the posterior horn of the left lateral ventricle and along the vermis adjacent to the 4th ventricle. There is mild enlargement of the lateral ventricles suggesting a component of obstructive hydrocephalus. These are new since p) Radiology Impression Discussion of test interpretation with radiology: I have reviewed the radiologist's reading. Critical Care Time Critical Care Time Critical Care Time: Yes Total Critical Care Time: 60 Attestation: The patient was critically ill with a high probability of imminent or life-threatening deterioration. I spent greater than 30 minutes of discontinuous time evaluating the patient, delivering critical care at the bedside, discussing evaluating data with consultants. Critical care time does not include time spent performing separately billable procedures or teaching. Time spent performing critical care was 60 minutes. Discharge Plan Discharge Clinical Impression: Pulmonary embolism, Metastasis to brain Patient Disposition: [facility] Transfer Details: [facility] Neuro ICU Prescriptions: No Action (DME) blood-glucose meter [FreeStyle Wishek Lite] Kit See Rx Instructions .Route Qty: 1 0RF Rx Instructions: Test twice a day (DME) freestyle freedom lite test strips See Rx Instructions .Route .MEDSUPPLY Qty: 1 0RF Rx Instructions: As directed metformin 500 mg tablet 500 mg PO BID Qty: 180 1RF simvastatin 5 mg tablet 5 mg PO BEDTIME Qty: 90 1RF ondansetron 4 mg tablet,disintegrating 4 mg PO Q8H PRN (Reason: nausea and vomiting) Qty: 20 0RF (DME) lancets [FreeStyle Lancets] 28 gauge misc See Rx Instructions .ROUTE .COMPLEX Qty: 100 0RF Dose Instruction: TEST TWICE A DAY DIRECTED Rx Instructions: TEST TWICE A DAY DIRECTED meclizine 25 mg tablet 25 mg PO TID PRN (Reason: dizziness) Qty: 14 0RF multivitamin Tablet 1 tab PO DAILY ascorbic acid (vitamin C) [Vitamin C] 250 mg Tablet 250 mg PO DAILY vitamin B complex Tablet 1 tab PO DAILY vitamin E 268 mg (400 unit) Capsule 268 mg PO DAILY pantoprazole 40 mg tablet,delayed release (DR/EC) 40 mg PO [facility] DVT-PE Treat 30D Start 5 mg (74 tabs) tablets,dose pack 5 mg PO BID Qty: 74 0RF Rx Instructions: Take 10 mg twice a day for 7 days, then 5 mg twice a day for 23 days lisinopril 10 mg tablet 10 mg PO DAILY Qty: 90 1RF lorazepam 0.5 mg tablet 0.5 mg PO BEDTIME PRN (Reason: anxiety) verapamil 120 mg capsule,ext rel. pellets 24 hr 120 mg PO DAILY Qty: 30 6RF Print Language: Belarusian
[2024-11-15] MEDS: iohexoL 350 MG/ML 100 ML INFUS..BTL 65 ML IV (11:33)
[2024-11-15 12:00] VITALS: BP 154/83; PULSE 69; RESP 15; TEMP 36.9; O2SAT 96
[2024-11-15 13:33] VITALS: BP 134/62; PULSE 73; RESP 19; TEMP 36.8; O2SAT 97
[2024-11-15 13:36] LABS: Troponin-I High Sensitivity 3.3 ng/L (<3.5-35.0)
[2024-11-15 13:38] LABS: Hematocrit 40.3 % (42.0-52.0); Hemoglobin 14.3 g/dl (14.0-18.0); Mean Corpuscular HGB Conc 35.5 g/dl (31.0-36.0); Mean Corpuscular Hemoglobin 30.4 pg (27.0-33.0); Mean Corpuscular Volume 85.7 fL (80.0-98.0); NRBC Abs Auto 0.000 X10*3/uL (0.0-0.012); NRBC Pct Auto 0.0 /100WBC (0.0-0.2); Platelet Count 319 X10*3/uL (160-400); Red Blood Count 4.70 X10*6/uL (4.60-5.80); White Blood Count 7.7 X10*3/uL (4.8-10.8)
[2024-11-15 13:44] LABS: INTERNATIONAL NORM RATIO 2.4 (0.9-1.1); Prothrombin Time 27.4 SEC (10.9-12.4)
[2024-11-15 13:47] LABS: PTT Heparin Drip 42.2 SEC (53-77.9)
[2024-11-15 16:25] VITALS: BP 130/60; PULSE 77; RESP 18; TEMP 36.8; O2SAT 97
== END 2024-11-15 16:27 | disposition short-term general hospital (02) ==
PROVIDERS: Emergency Provider Emergency Medicine; PCP Internal Medicine
DX: I26.99 Other pulmonary embolism without acute cor pulmonale (principal); C79.31 Secondary malignant neoplasm of brain; E11.9 Type 2 diabetes mellitus without complications; I10 Essential (primary) hypertension; E78.5 Hyperlipidemia, unspecified; Z86.718 Personal history of other venous thrombosis and embolism; Z79.01 Long term (current) use of anticoagulants
CPT/HCPCS: 36415; 70450; 71045; 71275; 80053; 84484; 85025; 85027; 85379; 85610; 85730; 93005; 99285; 99291; Q9967

== ENCOUNTER → 2024-11-15 10:10 | Outpatient (BNV) | payer BC, SELFPAY | PROVIDERS: Emergency Provider Emergency Medicine; PCP Internal Medicine; Visit Provider Internal Medicine Cardiovascular Disease | DX: R07.89 Other chest pain (principal) | CPT/HCPCS: 93010 ==